=== PATIENT | male | born 1990 | race American Indian/Alaskan Native ===

== ENCOUNTER 2020-03-12 19:28 | Emergency (ER) | payer SELFPAY | END 2020-03-12 19:35 | disposition left against medical advice (07) | LOC: DL.ED 19:28 | DX: Z53.21 Procedure and treatment not carried out due to patient leaving prior to being seen by health care provider (principal) ==

== ENCOUNTER 2020-03-12 20:09 | Emergency (ER) | payer MEDICAID ==
[2020-03-12] MEDS ORDERED: LORazepam 2 MG/ML SDV IVPUSH ONE (20:32)
[2020-03-12] MEDS ORDERED: MVI, Adult with Vitamin K 10 ML, Folic Acid 1 MG, Thiamine 100 MG in Lactated Ringers 1... IV ONE ×4 (20:33)
--- NOTE | 2020-03-12 20:41 | EDM.PDOCBH ---
ED HPI GENERAL MEDICAL PROBLEM - General Chief Complaint: Drug or Alcohol Abuse Stated Complaint: DETOX Time Seen by Provider: 03/12/20 20:35 Source of Information: Reports: Patient History Limitations: Reports: No Limitations - History of Present Illness INITIAL COMMENTS - FREE TEXT/NARRATIVE: arrived with his mother, been drinking alot since April after getting lay-off. noticed eyes are yellow. - Related Data Allergies Allergy/AdvReac Type Severity Reaction Status Date / Time No Known Allergies Allergy Verified 03/12/20 20:27 Home Meds: Home Meds . [No Known Home Meds] 03/12/20 [History] ED ROS GENERAL - Review of Systems Review Of Systems: Comprehensive ROS is negative, except as noted in HPI. ED EXAM, BEHAVIORAL HEALTH - Physical Exam Exam: See Below Exam Limited By: No Limitations General Appearance: Alert, WD/WN, No Apparent Distress Eye Exam: Bilateral Eye: Other (icteric) Ears: Hearing Grossly Normal Throat/Mouth: Normal Voice, No Airway Compromise Head: Atraumatic Neck: Non-Tender, Full Range of Motion Respiratory/Chest: No Respiratory Distress Cardiovascular: Regular Rate, Rhythm GI/Abdominal: Tender, Other (palpable liver tender to deep palpation). No: Distended, Guarding, Rigid, Rebound (Male) Exam: Deferred Rectal (Males) Exam: Deferred Neurological: Alert, Normal Mood/Affect, Normal Cognition, Normal Gait, No Motor/Sensory Deficits, Oriented x 3 Psychiatric: Flat Affect Skin Exam: Jaundice COURSE, BEHAVIORAL HEALTH COMP - Course Vital Signs: Last Vital Signs Temp 36.8 C 03/12/20 22:03 Pulse 122 H 03/12/20 22:42 Resp 22 H 03/12/20 22:42 BP 149/86 H 03/12/20 22:42 Pulse Ox 95 03/12/20 22:42 Orders, Labs, Meds: Active Orders 24 hr Category Date Time Status AMMONIA VENOUS [CHEM] Stat Lab 03/12/20 23:04 Ordered CULTURE BLOOD [BC] Stat Lab 03/12/20 22:20 Received CULTURE URINE [RM] Stat Lab 03/12/20 20:42 Received Laboratory Tests 03/12/20 03/12/20 03/12/20 Range/Units 20:40 20:40 20:42 WBC 17.7 H (5.0-10.0) 10^3/uL RBC 3.33 L (4.6-6.2) 10^6/uL Hgb 11.5 L (14.0-18.0) g/dL Hct 31.7 L (40.0-54.0) % MCV 95.2 (80-100) fL MCH 34.5 H (27.0-34.0) pg MCHC 36.3 H (33.0-35.0) g/dL Plt Count 98 L (150-450) 10^3/uL Neut % (Auto) 84.2 H (42.2-75.2) % Lymph % (Auto) 5.7 L (20.5-50.1) % [place] % (Auto) 9.5 H (2-8) % Eos % (Auto) 0.3 L (1.0-3.0) % Baso % (Auto) 0.3 (0.0-1.0) % Sodium 127 L (136-145) mmol/L Potassium 2.6 L (3.5-5.1) mmol/L Chloride 87 L (98-107) mmol/L Carbon Dioxide 26 (21-32) mmol/L Anion Gap 16.6 H (7-13) mEq/L BUN 6 L (7-18) mg/dL Creatinine 0.97 (0.70-1.30) mg/dL Est Cr Clr Drug Dosing 107.73 mL/min Estimated GFR (MDRD) > 60 BUN/Creatinine Ratio 6.2 (No establ ref range) Glucose 179 H (74-99) mg/dL Lactic Acid (0.4-2.0) mmol/L Calcium 7.9 L (8.5-10.1) mg/dL Total Bilirubin 28.3 H (0.2-1.0) mg/dL AST 148 H (15-37) U/L ALT 27 (16-63) U/L Alkaline Phosphatase 176 H (46-116) U/L Total Protein 8.1 (6.4-8.2) g/dL Albumin 2.1 L (3.4-5.0) g/dL Globulin 6.0 Albumin/Globulin Ratio 0.35 Urine Color Brown (YELLOW) Urine Appearance Turbid (CLEAR) Urine pH 5.5 (5.0-9.0) Ur Specific [place] 1.020 (1.005-1.030) Urine Protein >=300 H (NEGATIVE) Urine Glucose (UA) 100 H (NEGATIVE) Urine Ketones 40 H (NEGATIVE) Urine Occult Blood Small H (NEGATIVE) Urine Nitrite Negative (NEGATIVE) Urine Bilirubin Large H (NEGATIVE) Urine Urobilinogen 4.0 H (0.2-1.0) mg/dL Ur Leukocyte Esterase Large H (NEGATIVE) Urine RBC 0-5 /HPF Urine WBC 40-50 H (0-5/HPF) /HPF Ur Epithelial Cells Many H (NOT SEEN) /HPF Urine Bacteria Many H (0-FEW/HPF) /HPF Urine Opiates Screen (NEGATIVE) Ur Oxycodone Screen (NEGATIVE) Urine Methadone Screen (NEGATIVE) Ur Barbiturates Screen (NEGATIVE) U Tricyclic Antidepress (NEGATIVE) Ur Phencyclidine Scrn (NEGATIVE) Ur Amphetamine Screen (NEGATIVE) U Methamphetamines Scrn (NEGATIVE) Urine MDMA Screen (NEGATIVE) U Benzodiazepines Scrn (NEGATIVE) Urine Cocaine Screen (NEGATIVE) U Marijuana (THC) Screen (NEGATIVE) Ethyl Alcohol < 3 (0) mg/dL SARS-CoV-2 RNA (NIC) (NEGATIVE) 03/12/20 03/12/20 03/12/20 Range/Units 20:42 20:44 22:20 WBC (5.0-10.0) 10^3/uL RBC (4.6-6.2) 10^6/uL Hgb (14.0-18.0) g/dL Hct (40.0-54.0) % MCV (80-100) fL MCH (27.0-34.0) pg MCHC (33.0-35.0) g/dL Plt Count (150-450) 10^3/uL Neut % (Auto) (42.2-75.2) % Lymph % (Auto) (20.5-50.1) % [place] % (Auto) (2-8) % Eos % (Auto) (1.0-3.0) % Baso % (Auto) (0.0-1.0) % Sodium (136-145) mmol/L Potassium (3.5-5.1) mmol/L Chloride (98-107) mmol/L Carbon Dioxide (21-32) mmol/L Anion Gap (7-13) mEq/L BUN (7-18) mg/dL Creatinine (0.70-1.30) mg/dL Est Cr Clr Drug Dosing mL/min Estimated GFR (MDRD) BUN/Creatinine Ratio (No establ ref range) Glucose (74-99) mg/dL Lactic Acid 3.6 H* (0.4-2.0) mmol/L Calcium (8.5-10.1) mg/dL Total Bilirubin (0.2-1.0) mg/dL AST (15-37) U/L ALT (16-63) U/L Alkaline Phosphatase (46-116) U/L Total Protein (6.4-8.2) g/dL Albumin (3.4-5.0) g/dL Globulin Albumin/Globulin Ratio Urine Color (YELLOW) Urine Appearance (CLEAR) Urine pH (5.0-9.0) Ur Specific [place] (1.005-1.030) Urine Protein (NEGATIVE) Urine Glucose (UA) (NEGATIVE) Urine Ketones (NEGATIVE) Urine Occult Blood (NEGATIVE) Urine Nitrite (NEGATIVE) Urine Bilirubin (NEGATIVE) Urine Urobilinogen (0.2-1.0) mg/dL Ur Leukocyte Esterase (NEGATIVE) Urine RBC /HPF Urine WBC (0-5/HPF) /HPF Ur Epithelial Cells (NOT SEEN) /HPF Urine Bacteria (0-FEW/HPF) /HPF Urine Opiates Screen Negative (NEGATIVE) Ur Oxycodone Screen Negative (NEGATIVE) Urine Methadone Screen Negative (NEGATIVE) Ur Barbiturates Screen Negative (NEGATIVE) U Tricyclic Antidepress Negative (NEGATIVE) Ur Phencyclidine Scrn Negative (NEGATIVE) Ur Amphetamine Screen Negative (NEGATIVE) U Methamphetamines Scrn Negative (NEGATIVE) Urine MDMA Screen Negative (NEGATIVE) U Benzodiazepines Scrn Negative (NEGATIVE) Urine Cocaine Screen Negative (NEGATIVE) U Marijuana (THC) Screen Negative (NEGATIVE) Ethyl Alcohol (0) mg/dL SARS-CoV-2 RNA (NIC) Negative (NEGATIVE) Medications Discontinued Medications Generic Name Dose Route Start Last Admin Trade Name Freq PRN Reason Stop Dose Admin Multivitamins/Minerals 10 ml/ 1,011.2 mls @ 999 mls/hr 03/12/20 20:33 03/12/20 20:49 Folic Acid 1 mg/ Thiamine HCl IV 03/12/20 21:33 999 mls/hr 100 mg/ Lactated Ringer's ONETIME ONE Administration Sodium Chloride 1,000 mls @ 999 mls/hr 03/12/20 22:01 03/12/20 22:10 Normal Saline IV 03/12/20 23:01 999 mls/hr .BOLUS ONE Administration Ceftriaxone Sodium 1,000 mg/ 50 mls @ 100 mls/hr 03/12/20 22:14 03/12/20 22:39 Sodium Chloride IV 03/12/20 22:43 100 mls/hr ONETIME ONE Administration Iopamidol 100 ml 03/12/20 21:58 03/12/20 22:10 Isovue-300 (61%) IVPUSH 03/12/20 21:59 100 ml ONETIME ONE Administration Lorazepam 1 mg 03/12/20 20:32 03/12/20 20:50 Ativan IVPUSH 03/12/20 20:33 1 mg ONETIME ONE Administration Potassium Chloride 40 meq 03/12/20 22:01 03/12/20 22:08 Klor-Con 10 PO 03/12/20 22:02 40 meq ONETIME ONE Administration Re-Assessment/Re-Exam: re-exam; pt starting to have visual hallucination of seeing kids running about playing. case discussed with Dr Tolbert @ who kindly accepted pt. Departure - Departure Time of Disposition: 23:27 Disposition: DC/Tfer to [facility] Condition: Fair Clinical Impression: Hyponatremia, Hypokalemia, Total bilirubin, elevated, Jaundice due to hepatitis Cirrhosis of liver Qualifiers: Hepatic cirrhosis type: alcoholic cirrhosis Ascites presence: with ascites Qualified Code(s): K70.31 - Alcoholic cirrhosis of liver with ascites Sepsis Qualifiers: Sepsis type: sepsis due to unspecified organism Sepsis acute organ dysfunction status: without acute organ dysfunction Qualified Code(s): A41.9 - Sepsis, unspecified organism - Discharge Information Forms: Interfacility Transfer [facility] Sepsis Event Note (ED) - Evaluation Sepsis Screening Result: No Definite Risk - Focused Exam Vital Signs: Vital Signs Temp Pulse Resp BP Pulse Ox 03/12/20 22:42 122 H 22 H 149/86 H 95 03/12/20 22:03 36.8 C 123 H 20 161/102 H 98 03/12/20 21:05 126 H 19 173/101 H 99 03/12/20 20:19 35.7 C L 136 H 17 189/114 H 99 - My Orders Last 24 Hours: My Active Orders 03/12/20 20:42 CULTURE URINE [RM] Stat 03/12/20 22:20 CULTURE BLOOD [BC] Stat 03/12/20 23:04 AMMONIA VENOUS [CHEM] Stat - Assessment/Plan Last 24 Hours: My Active Orders 03/12/20 20:42 CULTURE URINE [RM] Stat 03/12/20 22:20 CULTURE BLOOD [BC] Stat 03/12/20 23:04 AMMONIA VENOUS [CHEM] Stat
[2020-03-12 21:27] LABS: AMPHETAMINES,URINE NEGATIVE (NEGATIVE); BARBITURATES,URINE NEGATIVE (NEGATIVE); BENZODIAZEPINE,URINE NEGATIVE (NEGATIVE); MDMA (ECSTASY), URINE NEGATIVE (NEGATIVE); METHADONE,URINE NEGATIVE (NEGATIVE); METHAMPHETAMINES,URINE NEGATIVE (NEGATIVE); OPIATES,URINE NEGATIVE (NEGATIVE); OXYCODONE,URINE NEGATIVE (NEGATIVE); PHENCYCLIDINE,URINE NEGATIVE (NEGATIVE); TCA,URINE NEGATIVE (NEGATIVE)
[2020-03-12 21:30] LABS: ANION GAP 16.6 mEq/L (7-13); CHLORIDE,CL 87 mmol/L (98-107); SODIUM,NA 127 mmol/L (136-145)
[2020-03-12] MEDS ORDERED: Iopamidol 612 MG/ML 100 ML Bottle IVPUSH ONE (21:58)
[2020-03-12] MEDS ORDERED: Potassium Chloride 10 MEQ Tab.ER PO ONE (22:01)
[2020-03-12] MEDS ORDERED: Sodium Chloride 0.9% 1,000 ML IV ONE (22:01)
[2020-03-12] MEDS ORDERED: cefTRIAXone 1,000 MG in Sodium Chloride 0.9% 50 ML IV ONE (22:14)
--- NOTE | 2020-03-12 22:56 | CT ---
PROCEDURE INFORMATION: Exam: CT Abdomen And Pelvis With Contrast Exam date and time: 03/12/2020 10:26 PM Age: 30 years old Clinical indication: Other: Jaundiced, bilirubin 28.3, wbc 17.7; Additional info: Elevated bilirub TECHNIQUE: Imaging protocol: Computed tomography of the abdomen and pelvis with intravenous contrast. Radiation optimization: All CT scans at this facility use at least one of these dose optimization techniques: automated exposure control; mA and/or kV adjustment per patient size (includes targeted exams where dose is matched to clinical indication); or iterative reconstruction. Contrast material: [id number]; Contrast volume: 100 ml; Contrast route: INTRAVENOUS (IV); COMPARISON: No relevant prior studies available. FINDINGS: 30-year-old male presenting with jaundice. A CT of the abdomen and pelvis with intravenous contrast was performed for further evaluation. The liver is significantly enlarged measuring 26 cm and diffuse hepatic steatosis is present. There is a nodular liver contour and caudate lobe hypertrophy, compatible with cirrhosis. No focal liver lesions are appreciated. The gallbladder is contracted and difficult to evaluate. No biliary ductal dilation. The spleen is mildly enlarged measuring 12 cm. The pancreas, adrenal glands, kidneys, ureters, urinary bladder, and reproductive organs are unremarkable. No bowel obstruction or significant bowel wall thickening. Mild constipation is present. The appendix is normal. Mild diffuse abdominopelvic ascites are seen. No fluid collections or pneumoperitoneum. The portal venous system is patent. There is recanalization of the umbilical vein. 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 There is a left splenorenal shunt. There are multiple varices identified within an umbilical fat containing hernia. No acute vascular pathology is otherwise seen. No concerning abdominopelvic adenopathy. Aside from the above described umbilical hernia, the body wall soft tissues are unremarkable. Lung bases are clear. No acute skeletal abnormality or aggressive osseous lesion. IMPRESSION: Severe hepatomegaly and hepatic steatosis with associated cirrhosis and mildly decompensated portal hypertension. If there is no prior history of alcohol consumption, non alcoholic fatty liver disease/steatohepatitis should be entertained.
== END 2020-03-12 23:56 ==
LOC: DL.ED 20:09
DX: A41.9 Sepsis, unspecified organism (principal); K70.31 Alcoholic cirrhosis of liver with ascites; E87.1 Hypo-osmolality and hyponatremia; E87.6 Hypokalemia; E80.6 Other disorders of bilirubin metabolism; K75.9 Inflammatory liver disease, unspecified; Z20.822 Contact with and (suspected) exposure to COVID-19
CPT/HCPCS: 36415; 74177; 80053; 80305; 80307; 81001; 82140; 83605; 85025; 87040; 87086; 87635; 96365; 96367; 96375; 99285; A9270; J0696; J2060; J3411; J7030; J7120; Q9967; 99284; J3490; U0002

== ENCOUNTER 2020-05-05 17:58 | Observation (INO) | payer MEDICAID ==
[2020-05-05 19:46] LABS: CHLORIDE,CL 91 mmol/L (98-107); SODIUM,NA 125 mmol/L (136-145)
[2020-05-05] MEDS ORDERED: Sodium Chloride 0.9% 1,000 ML IV ONE (19:58)
[2020-05-05 20:21] LABS: BASE EXCESS ARTERIAL -5 mmol/L ((-2)-(+3)); BICARBONATE,ARTERIAL 18.9 mmol/L (22-26); O2 DELIVERY DEVICE ROOM AIR; O2 SATURATION ARTERIAL 98 % (95-100); PCO2 ARTERIAL 32 mmHg (35-45); PO2 ARTERIAL 91 mmHg (70-100)
--- NOTE | 2020-05-05 20:41 | EDM.PDOC ---
ED HPI GENERAL MEDICAL PROBLEM - General Chief Complaint: Diabetic Complaint Stated Complaint: BLOOD SUGAR IS HIGH Time Seen by Provider: 05/05/20 20:30 Source of Information: Reports: Patient History Limitations: Reports: No Limitations - History of Present Illness INITIAL COMMENTS - FREE TEXT/NARRATIVE: This 30 yo male patient reports to the ED due to elevated blood sugar levels and increased thirst. The patient reports he was seen in the [facility] within the past month and was started on Spironolactone (for swelling) as well as oral diabetic medications. The patient reports he does not normally check his blood sugar levels, but did today due to his other symptoms. The patient reports he was in [facility] previously due to elevated liver functions (was told that he either has cirrhosis or alcoholic liver) and placed on Prednisone. The patient reports he has continued to take the steroid. The patient reports he is starting to be taken off the steroids, but does not know his current dose (reports he takes 3 little pills). Onset: Gradual Duration: Day(s): (2), Constant, Getting Worse Location: Reports: Generalized Quality: Reports: Other Severity: Moderate Improves with: Reports: None Worsens with: Reports: None Context: Reports: Other Associated Symptoms: Reports: No Other Symptoms - Related Data Allergies Allergy/AdvReac Type Severity Reaction Status Date / Time No Known Allergies Allergy Verified 03/12/20 20:27 Home Meds: Home Meds . [No Known Home Meds] 03/12/20 [History] Past Medical History Cardiovascular History: Reports: Hypertension Neurological History: Reports: Concussion Psychiatric History: Reports: Addiction Endocrine/Metabolic History: Reports: Diabetes, Type II Other Endocrine/Metabolic History: States he was tested once and they stated he was pre diabetic. Never followed up. - Past Surgical History Male Surgical History: Reports: Circumcision Social & Family History - Family History Family Medical History: No Pertinent Family History - Tobacco Use Tobacco Use Status *Q: Never Tobacco User Second Hand Smoke Exposure: No - Caffeine Use Caffeine Use: Reports: Soda Other Caffeine Use: 1 soda /day - Recreational Drug Use Recreational Drug Use: No ED ROS GENERAL - Review of Systems Review Of Systems: Comprehensive ROS is negative, except as noted in HPI. ED EXAM GENERAL NO PERIP PULSE - Physical Exam Exam: See Below Exam Limited By: No Limitations General Appearance: Alert, WD/WN, Moderate Distress Eye Exam: Bilateral Eye: EOMI, Normal Inspection, PERRL Ears: Normal External Exam, Normal Canal, Hearing Grossly Normal, Normal TMs Nose: Normal Inspection, Normal Mucosa, No Blood Throat/Mouth: Normal Inspection, Normal Lips, Normal Teeth, Normal Gums, Normal Oropharynx, Normal Voice, No Airway Compromise Head: Atraumatic, Normocephalic Neck: Normal Inspection, Supple, Non-Tender, Full Range of Motion Respiratory/Chest: No Respiratory Distress, Lungs Clear, Normal Breath Sounds, No Accessory Muscle Use, Chest Non-Tender Cardiovascular: Normal Peripheral Pulses, Regular Rate, Rhythm, No Edema, No Gallop, No JVD, No Murmur, No Rub GI/Abdominal: Normal Bowel Sounds, Soft, Non-Tender, No Organomegaly, No Distention, No Abnormal Bruit, No Mass (Male) Exam: Deferred Rectal (Males) Exam: Deferred Back Exam: Normal Inspection, Full Range of Motion, NT Extremities: Normal Inspection, Normal Range of Motion, Non-Tender, Normal Capillary Refill, No Pedal Edema Neurological: Alert, Oriented, CN II-XII Intact, Normal Cognition, Normal Gait, Normal Reflexes, No Motor/Sensory Deficits Psychiatric: Normal Affect, Normal Mood Skin Exam: Warm, Dry, Intact, Normal Color, No Rash Lymphatic: No Adenopathy Course - Vital Signs Last Recorded V/S: Last Vital Signs Temp 36.4 C 05/05/20 19:01 Pulse 80 05/05/20 19:01 Resp 18 05/05/20 19:01 BP 151/80 H 05/05/20 19:01 Pulse Ox 100 05/05/20 19:01 - Orders/Labs/Meds Orders: Active Orders 24 hr Category Date Time Status Admission Diagnosis [ADT] Urgent ADT 05/05/20 21:10 Ordered Admission Status [Patient Status] [ADT] Routine ADT 05/05/20 21:10 Ordered DRUG SCREEN URINE BIORAD [URCHEM] Stat Lab 05/05/20 20:50 Ordered UA RFX NIKITA AND CULT IF INDIC [URIN] Urgent Lab 05/05/20 20:50 Ordered Labs: Laboratory Tests 05/05/20 05/05/20 05/05/20 Range/Units 19:25 19:25 20:10 WBC 13.6 H (5.0-10.0) 10^3/uL RBC 3.37 L (4.6-6.2) 10^6/uL Hgb 11.1 L (14.0-18.0) g/dL Hct 32.3 L (40.0-54.0) % MCV 95.8 (80-100) fL MCH 32.9 (27.0-34.0) pg MCHC 34.4 (33.0-35.0) g/dL Plt Count 78 L (150-450) 10^3/uL Neut % (Auto) 93.8 H (42.2-75.2) % Lymph % (Auto) 3.9 L (20.5-50.1) % [place] % (Auto) 2.1 (2-8) % Eos % (Auto) 0.1 L (1.0-3.0) % Baso % (Auto) 0.1 (0.0-1.0) % Add Manual Diff Yes Neutrophils % (Manual) 83 H (42-75) % Band Neutrophils % 9 % Lymphocytes % (Manual) 3 L (20-50) % Atypical Lymphs % 0 % Monocytes % (Manual) 3 (2-8) % Eosinophils % (Manual) 2 (1-3) % Poikilocytosis 1+ slight Anisocytosis 1+ slight ABG pH (7.35-7.45) ABG pCO2 (35-45) mmHg ABG pO2 (70-100) mmHg ABG HCO3 (22-26) mmol/L ABG O2 Saturation (95-100) % ABG Base Excess ((-2)-(+3)) mmol/L Ariel Test O2 Delivery Device Sodium 125 L (136-145) mmol/L Potassium 5.0 D (3.5-5.1) mmol/L Chloride 91 L (98-107) mmol/L Carbon Dioxide 22 (21-32) mmol/L Anion Gap 17.0 H (7-13) mEq/L BUN 28 H (7-18) mg/dL Creatinine 1.79 H (0.70-1.30) mg/dL Est Cr Clr Drug Dosing 60.34 mL/min Estimated GFR (MDRD) 45 BUN/Creatinine Ratio 15.6 (No establ ref range) Glucose 904 H* (74-99) mg/dL Calcium 9.4 D (8.5-10.1) mg/dL Total Bilirubin 4.9 H (0.2-1.0) mg/dL AST 35 (15-37) U/L ALT 82 H (16-63) U/L Alkaline Phosphatase 502 H (46-116) U/L Total Protein 7.9 (6.4-8.2) g/dL Albumin 3.7 (3.4-5.0) g/dL Globulin 4.2 Albumin/Globulin Ratio 0.88 Ketones Negative Influenza Type A RNA Negative (NEGATIVE) Influenza Type B RNA Negative (NEGATIVE) SARS-CoV-2 RNA (INC) Negative (NEGATIVE) 05/05/20 Range/Units 20:45 WBC (5.0-10.0) 10^3/uL RBC (4.6-6.2) 10^6/uL Hgb (14.0-18.0) g/dL Hct (40.0-54.0) % MCV (80-100) fL MCH (27.0-34.0) pg MCHC (33.0-35.0) g/dL Plt Count (150-450) 10^3/uL Neut % (Auto) (42.2-75.2) % Lymph % (Auto) (20.5-50.1) % [place] % (Auto) (2-8) % Eos % (Auto) (1.0-3.0) % Baso % (Auto) (0.0-1.0) % Add Manual Diff Neutrophils % (Manual) (42-75) % Band Neutrophils % % Lymphocytes % (Manual) (20-50) % Atypical Lymphs % % Monocytes % (Manual) (2-8) % Eosinophils % (Manual) (1-3) % Poikilocytosis Anisocytosis ABG pH 7.40 (7.35-7.45) ABG pCO2 32 L (35-45) mmHg ABG pO2 91 (70-100) mmHg ABG HCO3 18.9 L (22-26) mmol/L ABG O2 Saturation 98 (95-100) % ABG Base Excess -5 L ((-2)-(+3)) mmol/L Ariel Test pos O2 Delivery Device Room air Sodium (136-145) mmol/L Potassium (3.5-5.1) mmol/L Chloride (98-107) mmol/L Carbon Dioxide (21-32) mmol/L Anion Gap (7-13) mEq/L BUN (7-18) mg/dL Creatinine (0.70-1.30) mg/dL Est Cr Clr Drug Dosing mL/min Estimated GFR (MDRD) BUN/Creatinine Ratio (No establ ref range) Glucose (74-99) mg/dL Calcium (8.5-10.1) mg/dL Total Bilirubin (0.2-1.0) mg/dL AST (15-37) U/L ALT (16-63) U/L Alkaline Phosphatase (46-116) U/L Total Protein (6.4-8.2) g/dL Albumin (3.4-5.0) g/dL Globulin Albumin/Globulin Ratio Ketones Influenza Type A RNA (NEGATIVE) Influenza Type B RNA (NEGATIVE) SARS-CoV-2 RNA (NIC) (NEGATIVE) Meds: Medications Discontinued Medications Generic Name Dose Route Start Last Admin Trade Name Freq PRN Reason Stop Dose Admin Sodium Chloride 1,000 mls @ 999 mls/hr 05/05/20 19:58 05/05/20 20:07 Normal Saline IV 05/05/20 20:58 999 mls/hr .BOLUS ONE Administration Departure - Departure Time of Disposition: 21:12 Disposition: Refer to Observation Condition: Fair Clinical Impression: Hyperglycemia, Hyponatremia Acute renal failure (ARF) Qualifiers: Acute renal failure type: unspecified Qualified Code(s): N17.9 - Acute kidney failure, unspecified - Discharge Information *PRESCRIPTION DRUG MONITORING PROGRAM REVIEWED*: Not Applicable *COPY OF PRESCRIPTION DRUG MONITORING REPORT IN PATIENT GERARDO: Not Applicable Care Plan Goals: Discussed the patient's history, examination and lab results with Dr Armstrong. Dr. Armstrong accepted the patient for continued evaluation and treatment as an observation patient at [facility] in [place]. Sepsis Event Note (ED) - Evaluation Sepsis Screening Result: No Definite Risk - Focused Exam Vital Signs: Vital Signs Temp Pulse Resp BP Pulse Ox 05/05/20 19:01 36.4 C 80 18 151/80 H 100 - My Orders Last 24 Hours: My Active Orders 05/05/20 20:50 DRUG SCREEN URINE BIORAD [URCHEM] Stat UA RFX NIKITA AND CULT IF INDIC [URIN] Urgent 05/05/20 21:10 Admission Diagnosis [ADT] Urgent Admission Status [Patient Status] [ADT] Routine - Assessment/Plan Last 24 Hours: My Active Orders 05/05/20 20:50 DRUG SCREEN URINE BIORAD [URCHEM] Stat UA RFX NIKITA AND CULT IF INDIC [URIN] Urgent 05/05/20 21:10 Admission Diagnosis [ADT] Urgent Admission Status [Patient Status] [ADT] Routine
[2020-05-05 20:50] LABS: ALLEN TEST pos
[2020-05-05 20:54] LABS: CORONAVIRUS COVID-19 NAA NEGATIVE (NEGATIVE)
[2020-05-05] MEDS ORDERED: Glucagon,Human Recombinant 1 MG Vial IM PRN (22:05)
[2020-05-05] MEDS ORDERED: 50% Dextrose in Water 50 ML Syringe IV PRN (22:05)
[2020-05-05] MEDS ORDERED: Sodium Chloride 0.9% 1,000 ML IV SCH (22:15)
--- NOTE | 2020-05-05 22:20 | PCM.HP ---
H&P History of Present Illness - General Date of Service: 05/05/20 Admit Problem/Dx: Admission Diagnosis/Problem Admission Diagnosis/Problem Hyperglycemia - History of Present Illness Initial Comments - Free Text/Narative: 30M w/ pmh alcoholism, HT, DM2, alcoholic hepatitis and likely alcoholic liver cirrhosis p/w weakness. Pt was alcohol dependent up until 2 mo ago and states has not drank since then. He was first admitted to [facility] license of [facility] in February after he developed new jaundice and abnormal labs/electrolytes. He spent a week in the hospital. Appx 1 week after discharge he was seen in follow up and his labs were again concerning and he was re-admitted to On license of [facility]. This time he underwent an EGD and colonoscopy which only found hemorrhoids. He also had a paracentesis w/ 1L drained. He was told he has alcoholic hepatitis but some time has to pass until he is declared to have cirrhosis. At that time he was started on prednisone. For the last months he has been feeling well. Ascites has not re-accumulated and his massive LE edema has completely resolved. He comes in today because for just the last several days he's been feeling weak, tired, extremely thirsty and has had polyuria. In the ED his FSG is noted 904 w/ associated pseudohyponatremia and KELVIN. - Related Data Allergies/Adverse Reactions: Allergies Allergy/AdvReac Type Severity Reaction Status Date / Time No Known Allergies Allergy Verified 03/12/20 20:27 Home Medications: Home Meds Folic Acid 1 mg PO DAILY 05/05/20 [History] Lactulose [Chronulac] 10 gm PO TID 05/05/20 [History] Metoprolol Tartrate 25 mg PO BID 05/05/20 [History] Spironolactone 50 mg PO BID 05/05/20 [History] Thiamine [Vitamin B-1] 100 mg PO DAILY 05/05/20 [History] amLODIPine [Norvasc] 5 mg PO DAILY 05/05/20 [History] predniSONE [Prednisone] 20 mg PO DAILY 05/05/20 [History] Past Medical History Cardiovascular History: Reports: Hypertension Neurological History: Reports: Concussion Psychiatric History: Reports: Addiction Endocrine/Metabolic History: Reports: Diabetes, Type II Other Endocrine/Metabolic History: States he was tested once and they stated he was pre diabetic. Never followed up. - Past Surgical History Male Surgical History: Reports: Circumcision Social & Family History - Family History Family Medical History: No Pertinent Family History - Tobacco Use Tobacco Use Status *Q: Never Tobacco User Second Hand Smoke Exposure: No - Caffeine Use Caffeine Use: Reports: Soda Other Caffeine Use: 1 soda /day - Recreational Drug Use Recreational Drug Use: No H&P Review of Systems - Review of Systems: Review Of Systems: See Below General: Reports: Malaise, Weakness. Denies: Fever, Chills, Diaphoresis HEENT: Denies: Headaches Pulmonary: Denies: Shortness of Breath, Wheezing, Cough Cardiovascular: Denies: Chest Pain, Orthopnea, Edema Gastrointestinal: Denies: Abdominal Pain, Diarrhea, Nausea Genitourinary: Reports: Frequency. Denies: Dysuria Skin: Reports: Jaundice Psychiatric: Denies: Hallucinations (Visual) Neurological: Denies: Confusion Hematologic/Lymphatic: Denies: Easy Bleeding Exam - Exam Exam: See Below - Vital Signs Vital Signs: Last Vital Signs Temp 97.5 F 05/05/20 19:01 Pulse 80 05/05/20 19:01 Resp 18 05/05/20 19:01 BP 151/80 H 05/05/20 19:01 Pulse Ox 100 05/05/20 19:01 Weight: 180 lb 8 oz - Exam Quality Assessment: No: Supplemental Oxygen General: Alert, Oriented, Cooperative HEENT: Scleral Icterus Neck: Supple Lungs: Clear to Auscultation, Normal Respiratory Effort Cardiovascular: Regular Rate, Regular Rhythm GI/Abdominal Exam: Normal Bowel Sounds, Soft, Non-Tender, No Distention Back Exam: Normal Inspection Extremities: No Pedal Edema Skin: Warm, Dry, Intact Neurological: Normal Speech Neuro Extensive - Mental Status: Alert, Oriented x3, Normal Mood/Affect Neuro Extensive - Motor, Sensory, Reflexes: No: Tremor Psychiatric: Alert, Normal Affect, Normal Mood - Patient Data Lab Results Last 24 hrs: Laboratory Results - last 24 hr 05/05/20 05/05/20 05/05/20 Range/Units 19:25 19:25 20:10 WBC 13.6 H (5.0-10.0) 10^3/uL RBC 3.37 L (4.6-6.2) 10^6/uL Hgb 11.1 L (14.0-18.0) g/dL Hct 32.3 L (40.0-54.0) % MCV 95.8 (80-100) fL MCH 32.9 (27.0-34.0) pg MCHC 34.4 (33.0-35.0) g/dL Plt Count 78 L (150-450) 10^3/uL Neut % (Auto) 93.8 H (42.2-75.2) % Lymph % (Auto) 3.9 L (20.5-50.1) % Pickett % (Auto) 2.1 (2-8) % Eos % (Auto) 0.1 L (1.0-3.0) % Baso % (Auto) 0.1 (0.0-1.0) % Add Manual Diff Yes Neutrophils % (Manual) 83 H (42-75) % Band Neutrophils % 9 % Lymphocytes % (Manual) 3 L (20-50) % Atypical Lymphs % 0 % Monocytes % (Manual) 3 (2-8) % Eosinophils % (Manual) 2 (1-3) % Poikilocytosis 1+ slight Anisocytosis 1+ slight ABG pH (7.35-7.45) ABG pCO2 (35-45) mmHg ABG pO2 (70-100) mmHg ABG HCO3 (22-26) mmol/L ABG O2 Saturation (95-100) % ABG Base Excess ((-2)-(+3)) mmol/L Ariel Test O2 Delivery Device Sodium 125 L (136-145) mmol/L Potassium 5.0 D (3.5-5.1) mmol/L Chloride 91 L (98-107) mmol/L Carbon Dioxide 22 (21-32) mmol/L Anion Gap 17.0 H (7-13) mEq/L BUN 28 H (7-18) mg/dL Creatinine 1.79 H (0.70-1.30) mg/dL Est Cr Clr Drug Dosing 60.34 mL/min Estimated GFR (MDRD) 45 BUN/Creatinine Ratio 15.6 (No establ ref range) Glucose 904 H* (74-99) mg/dL POC Glucose (70-105) mg/dl Calcium 9.4 D (8.5-10.1) mg/dL Total Bilirubin 4.9 H (0.2-1.0) mg/dL AST 35 (15-37) U/L ALT 82 H (16-63) U/L Alkaline Phosphatase 502 H (46-116) U/L Total Protein 7.9 (6.4-8.2) g/dL Albumin 3.7 (3.4-5.0) g/dL Globulin 4.2 Albumin/Globulin Ratio 0.88 Urine Color (YELLOW) Urine Appearance (CLEAR) Urine pH (5.0-9.0) Ur Specific [place] (1.005-1.030) Urine Protein (NEGATIVE) Urine Glucose (UA) (NEGATIVE) Urine Ketones (NEGATIVE) Urine Occult Blood (NEGATIVE) Urine Nitrite (NEGATIVE) Urine Bilirubin (NEGATIVE) Urine Urobilinogen (0.2-1.0) mg/dL Ur Leukocyte Esterase (NEGATIVE) Urine Opiates Screen (NEGATIVE) Ur Oxycodone Screen (NEGATIVE) Urine Methadone Screen (NEGATIVE) Ur Barbiturates Screen (NEGATIVE) U Tricyclic Antidepress (NEGATIVE) Ur Phencyclidine Scrn (NEGATIVE) Ur Amphetamine Screen (NEGATIVE) U Methamphetamines Scrn (NEGATIVE) Urine MDMA Screen (NEGATIVE) U Benzodiazepines Scrn (NEGATIVE) Urine Cocaine Screen (NEGATIVE) U Marijuana (THC) Screen (NEGATIVE) Ketones Negative Influenza Type A RNA Negative (NEGATIVE) Influenza Type B RNA Negative (NEGATIVE) SARS-CoV-2 RNA (NIC) Negative (NEGATIVE) 05/05/20 05/05/20 05/05/20 Range/Units 20:25 20:25 20:45 WBC (5.0-10.0) 10^3/uL RBC (4.6-6.2) 10^6/uL Hgb (14.0-18.0) g/dL Hct (40.0-54.0) % MCV (80-100) fL MCH (27.0-34.0) pg MCHC (33.0-35.0) g/dL Plt Count (150-450) 10^3/uL Neut % (Auto) (42.2-75.2) % Lymph % (Auto) (20.5-50.1) % Pickett % (Auto) (2-8) % Eos % (Auto) (1.0-3.0) % Baso % (Auto) (0.0-1.0) % Add Manual Diff Neutrophils % (Manual) (42-75) % Band Neutrophils % % Lymphocytes % (Manual) (20-50) % Atypical Lymphs % % Monocytes % (Manual) (2-8) % Eosinophils % (Manual) (1-3) % Poikilocytosis Anisocytosis ABG pH 7.40 (7.35-7.45) ABG pCO2 32 L (35-45) mmHg ABG pO2 91 (70-100) mmHg ABG HCO3 18.9 L (22-26) mmol/L ABG O2 Saturation 98 (95-100) % ABG Base Excess -5 L ((-2)-(+3)) mmol/L Ariel Test pos O2 Delivery Device Room air Sodium (136-145) mmol/L Potassium (3.5-5.1) mmol/L Chloride (98-107) mmol/L Carbon Dioxide (21-32) mmol/L Anion Gap (7-13) mEq/L BUN (7-18) mg/dL Creatinine (0.70-1.30) mg/dL Est Cr Clr Drug Dosing mL/min Estimated GFR (MDRD) BUN/Creatinine Ratio (No establ ref range) Glucose (74-99) mg/dL POC Glucose (70-105) mg/dl Calcium (8.5-10.1) mg/dL Total Bilirubin (0.2-1.0) mg/dL AST (15-37) U/L ALT (16-63) U/L Alkaline Phosphatase (46-116) U/L Total Protein (6.4-8.2) g/dL Albumin (3.4-5.0) g/dL Globulin Albumin/Globulin Ratio Urine Color Yellow (YELLOW) Urine Appearance Clear (CLEAR) Urine pH 6.0 (5.0-9.0) Ur Specific [place] 1.010 (1.005-1.030) Urine Protein Negative (NEGATIVE) Urine Glucose (UA) >=1000 H (NEGATIVE) Urine Ketones Negative (NEGATIVE) Urine Occult Blood Negative (NEGATIVE) Urine Nitrite Negative (NEGATIVE) Urine Bilirubin Negative (NEGATIVE) Urine Urobilinogen 0.2 (0.2-1.0) mg/dL Ur Leukocyte Esterase Negative (NEGATIVE) Urine Opiates Screen Negative (NEGATIVE) Ur Oxycodone Screen Negative (NEGATIVE) Urine Methadone Screen Negative (NEGATIVE) Ur Barbiturates Screen Negative (NEGATIVE) U Tricyclic Antidepress Negative (NEGATIVE) Ur Phencyclidine Scrn Negative (NEGATIVE) Ur Amphetamine Screen Negative (NEGATIVE) U Methamphetamines Scrn Negative (NEGATIVE) Urine MDMA Screen Negative (NEGATIVE) U Benzodiazepines Scrn Negative (NEGATIVE) Urine Cocaine Screen Negative (NEGATIVE) U Marijuana (THC) Screen Negative (NEGATIVE) Ketones Influenza Type A RNA (NEGATIVE) Influenza Type B RNA (NEGATIVE) SARS-CoV-2 RNA (NIC) (NEGATIVE) 05/05/20 Range/Units 21:56 WBC (5.0-10.0) 10^3/uL RBC (4.6-6.2) 10^6/uL Hgb (14.0-18.0) g/dL Hct (40.0-54.0) % MCV (80-100) fL MCH (27.0-34.0) pg MCHC (33.0-35.0) g/dL Plt Count (150-450) 10^3/uL Neut % (Auto) (42.2-75.2) % Lymph % (Auto) (20.5-50.1) % Pickett % (Auto) (2-8) % Eos % (Auto) (1.0-3.0) % Baso % (Auto) (0.0-1.0) % Add Manual Diff Neutrophils % (Manual) (42-75) % Band Neutrophils % % Lymphocytes % (Manual) (20-50) % Atypical Lymphs % % Monocytes % (Manual) (2-8) % Eosinophils % (Manual) (1-3) % Poikilocytosis Anisocytosis ABG pH (7.35-7.45) ABG pCO2 (35-45) mmHg ABG pO2 (70-100) mmHg ABG HCO3 (22-26) mmol/L ABG O2 Saturation (95-100) % ABG Base Excess ((-2)-(+3)) mmol/L Ariel Test O2 Delivery Device Sodium (136-145) mmol/L Potassium (3.5-5.1) mmol/L Chloride (98-107) mmol/L Carbon Dioxide (21-32) mmol/L Anion Gap (7-13) mEq/L BUN (7-18) mg/dL Creatinine (0.70-1.30) mg/dL Est Cr Clr Drug Dosing mL/min Estimated GFR (MDRD) BUN/Creatinine Ratio (No establ ref range) Glucose (74-99) mg/dL POC Glucose > 500 H* (70-105) mg/dl Calcium (8.5-10.1) mg/dL Total Bilirubin (0.2-1.0) mg/dL AST (15-37) U/L ALT (16-63) U/L Alkaline Phosphatase (46-116) U/L Total Protein (6.4-8.2) g/dL Albumin (3.4-5.0) g/dL Globulin Albumin/Globulin Ratio Urine Color (YELLOW) Urine Appearance (CLEAR) Urine pH (5.0-9.0) Ur Specific [place] (1.005-1.030) Urine Protein (NEGATIVE) Urine Glucose (UA) (NEGATIVE) Urine Ketones (NEGATIVE) Urine Occult Blood (NEGATIVE) Urine Nitrite (NEGATIVE) Urine Bilirubin (NEGATIVE) Urine Urobilinogen (0.2-1.0) mg/dL Ur Leukocyte Esterase (NEGATIVE) Urine Opiates Screen (NEGATIVE) Ur Oxycodone Screen (NEGATIVE) Urine Methadone Screen (NEGATIVE) Ur Barbiturates Screen (NEGATIVE) U Tricyclic Antidepress (NEGATIVE) Ur Phencyclidine Scrn (NEGATIVE) Ur Amphetamine Screen (NEGATIVE) U Methamphetamines Scrn (NEGATIVE) Urine MDMA Screen (NEGATIVE) U Benzodiazepines Scrn (NEGATIVE) Urine Cocaine Screen (NEGATIVE) U Marijuana (THC) Screen (NEGATIVE) Ketones Influenza Type A RNA (NEGATIVE) Influenza Type B RNA (NEGATIVE) SARS-CoV-2 RNA (NIC) (NEGATIVE) Result Diagrams: 05/05/20 19:25 05/05/20 19:25 Problem List Initiated/Reviewed/Updated: No Orders Last 24hrs: Active Orders 24 hr Category Date Time Status Admission Diagnosis [ADT] Urgent ADT 05/05/20 21:10 Ordered Admission Status [Patient Status] [ADT] Routine ADT 05/05/20 21:10 Active Patient Status [ADT] Routine ADT 05/05/20 22:05 Ordered Blood Glucose Check, Bedside [RC] Q4H Care 05/05/20 22:05 Ordered Oxygen Therapy [RC] PRN Care 05/05/20 22:05 Ordered Up ad Sudha [RC] ASDIRECTED Care 05/05/20 22:05 Ordered VTE/DVT Education [RC] PER UNIT ROUTINE Care 05/05/20 22:05 Ordered Vital Signs [RC] Q4H Care 05/05/20 22:05 Ordered Consistent Carbohydrate Diet [DIET] Diet 05/05/20 Breakfast Ordered COMPREHENSIVE METABOLIC PN,CMP [CHEM] AM Lab 05/06/20 05:11 Ordered INR,PT,PROTHROMBIN TIME [COAG] AM Lab 05/06/20 05:11 Ordered Dextrose 50% in Water Med 05/05/20 22:05 Ordered 50 ml IV ASDIRECTED PRN Folic Acid Med 05/06/20 09:00 Ordered 1 mg PO DAILY Glucagon,Human Recombinant [GlucaGen] Med 05/05/20 22:05 Ordered 1 mg IM ASDIRECTED PRN Insulin Glarg,Human.Rec.Analog [LantUS] Med 05/06/20 22:09 Ordered 20 unit SUBCUT BEDTIME Insulin Lispro [HumaLOG] Med 05/05/20 22:11 Ordered See Protocol SUBCUT Q4H Metoprolol Tartrate [Lopressor] Med 05/06/20 09:00 Ordered 25 mg PO BID Sodium Chloride 0.9% [Normal Saline] 1,000 ml Med 05/05/20 22:15 Ordered IV .BOLUS Sodium Chloride 0.9% [Normal Saline] 1,000 ml Med 05/05/20 22:15 Ordered IV ASDIRECTED Spironolactone [Spironolactone] Med 05/06/20 09:00 Ordered 50 mg PO BID Thiamine [Vitamin B-1] Med 05/06/20 09:00 Ordered 100 mg PO DAILY amLODIPine [Norvasc] Med 05/06/20 09:00 Ordered 5 mg PO DAILY predniSONE Med 05/06/20 09:00 Ordered 20 mg PO DAILY Resuscitation Status Routine Resus Stat 05/05/20 22:05 Ordered Medication Orders Dextrose/Water (50% Dextrose In Water 50 Ml Syringe) 50 ml IV ASDIRECTED PRN PRN Reason: Hypoglycemia Glucagon (Glucagon,Human Recombinant 1 Mg Vial) 1 mg IM ASDIRECTED PRN PRN Reason: Hypoglycemia Sodium Chloride (Normal Saline) 1,000 mls @ 999 mls/hr IV .BOLUS FARHAT Sodium Chloride (Normal Saline) 1,000 mls @ 150 mls/hr IV ASDIRECTED FARHAT Insulin Glargine (Insulin Glarg,Human.Rec.Analog 100 Unit/Ml) 20 unit SUBCUT BEDTIME FARHAT Insulin Human Lispro (Insulin Lispro 100 Units/Ml 3 Ml Vial) 0 unit SUBCUT Q4H FARHAT; Protocol Assessment/Plan Comment:: #hyperglycemia - in setting of prednisone use - start lantus weight based dose and q4h correction scale - fluid resuscitate #pseudohyponatremia - due to elevated glucose - corrected Na is normal #KELVIN - 2x NS bolus then 150/hr #alcoholic hepatitis - he has started his steroid taper - will continue this w/ 20 mg prednisone tomorrow - check coags to calculate DF and MELD #hx alcohol dependence - states he is sober 2 mo now and awaiting entry into an outpatient program PPX - [facility] Full code
[2020-05-05] MEDS ORDERED: Insulin Glarg,Human.Rec.Analog 100 Unit/ML SUBCUT SCH (22:22)
[2020-05-05] MEDS: Insulin Lispro 100 Units/ML 3 ML Vial SUBCUT SCH (22:43)
[2020-05-05] MEDS: Sodium Chloride 0.9% 1,000 ML IV SCH (23:42)
[2020-05-06] MEDS: Insulin Lispro 100 Units/ML 3 ML Vial SUBCUT SCH ×3 (02:23→10:11)
[2020-05-06] MEDS: Sodium Chloride 0.9% 1,000 ML IV SCH (06:06)
[2020-05-06] MEDS: Heparin Sodium 5,000 Units/ML Vial SUBCUT SCH ×2 (06:15→06:18)
[2020-05-06 06:43] LABS: ANION GAP 18.5 mEq/L (7-13); CHLORIDE,CL 105 mmol/L (98-107); SODIUM,NA 139 mmol/L (136-145)
[2020-05-06] MEDS ORDERED: Metoprolol Tartrate 25 MG Tab PO SCH (09:00)
[2020-05-06] MEDS ORDERED: predniSONE 20 MG Tab PO SCH (09:00)
[2020-05-06] MEDS ORDERED: Folic Acid 1 MG Tab PO SCH (09:00)
[2020-05-06] MEDS ORDERED: Thiamine 100 MG Tab PO SCH (09:00)
[2020-05-06] MEDS ORDERED: Spironolactone 25 MG Tab PO SCH (09:00)
[2020-05-06] MEDS ORDERED: amLODIPine 5 MG Tab PO SCH (09:00)
--- NOTE | 2020-05-06 17:57 | PCM.DCSUM1 ---
Discharge Summary - Hospital Course Free Text/Narrative:: 30M w/ pmh alcoholism, HT, DM2, alcoholic hepatitis and likely alcoholic liver cirrhosis p/w weakness. Pt was alcohol dependent up until 2 mo ago and states has not drank since then. He was first admitted to [facility] in February after he developed new jaundice and abnormal labs/electrolytes. He spent a week in the hospital. Appx 1 week after discharge he was seen in follow up and his labs were again concerning and he was re-admitted to [facility]. This time he underwent an EGD and colonoscopy which only found hemorrhoids. He also had a paracentesis w/ 1L drained. He was told he has alcoholic hepatitis but some time has to pass until he is declared to have cirrhosis. At that time he was started on prednisone. For the last months he has been feeling well. Ascites has not re-accumulated and his massive LE edema has completely resolved. He com es in today because for just the last several days he's been feeling weak, tired, extremely thirsty and has had polyuria. In the ED his FSG is noted 904 w/ associated pseudohyponatremia and KELVIN. The pt's stay was uneventful. W/ hydration this kidney function returned to normal. His spironolactone was d/c. His glucose also came down and he was d/c w/ lantus 10U only since glycemic control is expected to improve w/ tapering doses of prednisone. He will follow up within a week for re-evaluate spironolactone use and need for insulin w/ PCP. - Discharge Data Discharge Date: 05/06/20 Discharge Disposition: Home, Self-Care 01 Condition: Good - Referral to Home Health Primary Care Physician: PCP None - Discharge Plan *PRESCRIPTION DRUG MONITORING PROGRAM REVIEWED*: Not Applicable *COPY OF PRESCRIPTION DRUG MONITORING REPORT IN PATIENT GERARDO: Not Applicable Prescriptions/Med Rec: Insulin Glarg,Human.Rec.Analog [Lantus] 10 unit SUBCUT BEDTIME #1 pen Home Medications: Home Meds Folic Acid 1 mg PO DAILY 05/05/20 [History] Lactulose [Chronulac] 10 gm PO TID 05/05/20 [History] Metoprolol Tartrate 25 mg PO BID 05/05/20 [History] Thiamine [Vitamin B-1] 100 mg PO DAILY 05/05/20 [History] amLODIPine [Norvasc] 5 mg PO DAILY 05/05/20 [History] predniSONE [Prednisone] 20 mg PO DAILY 05/05/20 [History] Insulin Glarg,Human.Rec.Analog [Lantus] 10 unit SUBCUT BEDTIME #1 pen 05/06/20 [Rx] Patient Handouts: Hyperglycemia, [id number], Insulin Injection Instructions, Using Insulin Pens, Adult, Type 2 Diabetes Mellitus, Self Care, Adult, [id number], Insulin Glargine injection Referrals: Bar Woodard ASSESSMENT CLINICIAN [Ordering Only Provider] - (Post hospital follow up appointment on SaturdayMay 11 at 9:30am) - Discharge Summary/Plan Comment DC Time >30 min.: Yes (35 min) - Patient Data Vitals - Most Recent: Last Vital Signs Temp 98.1 F 05/06/20 11:22 Pulse 100 05/06/20 11:22 Resp 18 05/06/20 11:22 BP 141/74 H 05/06/20 11:22 Pulse Ox 100 05/06/20 11:22 Weight - Most Recent: 177 lb 3.2 oz I&O - Last 24 hours: Intake & Output 05/06/20 05/06/20 05/06/20 06:59 14:59 22:59 Intake Total 2500 120 Balance 2500 120 Lab Results - Last 24 hrs: Laboratory Results - last 24 hr 05/05/20 05/05/20 05/05/20 Range/Units 19:25 19:25 20:10 WBC 13.6 H (5.0-10.0) 10^3/uL RBC 3.37 L (4.6-6.2) 10^6/uL Hgb 11.1 L (14.0-18.0) g/dL Hct 32.3 L (40.0-54.0) % MCV 95.8 (80-100) fL MCH 32.9 (27.0-34.0) pg MCHC 34.4 (33.0-35.0) g/dL Plt Count 78 L (150-450) 10^3/uL Neut % (Auto) 93.8 H (42.2-75.2) % Lymph % (Auto) 3.9 L (20.5-50.1) % [place] % (Auto) 2.1 (2-8) % Eos % (Auto) 0.1 L (1.0-3.0) % Baso % (Auto) 0.1 (0.0-1.0) % Add Manual Diff Yes Neutrophils % (Manual) 83 H (42-75) % Band Neutrophils % 9 % Lymphocytes % (Manual) 3 L (20-50) % Atypical Lymphs % 0 % Monocytes % (Manual) 3 (2-8) % Eosinophils % (Manual) 2 (1-3) % Poikilocytosis 1+ slight Anisocytosis 1+ slight PT (9.0-12.0) SEC INR (0.9-1.2) ABG pH (7.35-7.45) ABG pCO2 (35-45) mmHg ABG pO2 (70-100) mmHg ABG HCO3 (22-26) mmol/L ABG O2 Saturation (95-100) % ABG Base Excess ((-2)-(+3)) mmol/L Ariel Test O2 Delivery Device Sodium 125 L (136-145) mmol/L Potassium 5.0 D (3.5-5.1) mmol/L Chloride 91 L (98-107) mmol/L Carbon Dioxide 22 (21-32) mmol/L Anion Gap 17.0 H (7-13) mEq/L BUN 28 H (7-18) mg/dL Creatinine 1.79 H (0.70-1.30) mg/dL Est Cr Clr Drug Dosing 60.34 mL/min Estimated GFR (MDRD) 45 BUN/Creatinine Ratio 15.6 (No establ ref range) Glucose 904 H* (74-99) mg/dL POC Glucose (70-105) mg/dl Calcium 9.4 D (8.5-10.1) mg/dL Total Bilirubin 4.9 H (0.2-1.0) mg/dL AST 35 (15-37) U/L ALT 82 H (16-63) U/L Alkaline Phosphatase 502 H (46-116) U/L Total Protein 7.9 (6.4-8.2) g/dL Albumin 3.7 (3.4-5.0) g/dL Globulin 4.2 Albumin/Globulin Ratio 0.88 Urine Color (YELLOW) Urine Appearance (CLEAR) Urine pH (5.0-9.0) Ur Specific [place] (1.005-1.030) Urine Protein (NEGATIVE) Urine Glucose (UA) (NEGATIVE) Urine Ketones (NEGATIVE) Urine Occult Blood (NEGATIVE) Urine Nitrite (NEGATIVE) Urine Bilirubin (NEGATIVE) Urine Urobilinogen (0.2-1.0) mg/dL Ur Leukocyte Esterase (NEGATIVE) Urine Opiates Screen (NEGATIVE) Ur Oxycodone Screen (NEGATIVE) Urine Methadone Screen (NEGATIVE) Ur Barbiturates Screen (NEGATIVE) U Tricyclic Antidepress (NEGATIVE) Ur Phencyclidine Scrn (NEGATIVE) Ur Amphetamine Screen (NEGATIVE) U Methamphetamines Scrn (NEGATIVE) Urine MDMA Screen (NEGATIVE) U Benzodiazepines Scrn (NEGATIVE) Urine Cocaine Screen (NEGATIVE) U Marijuana (THC) Screen (NEGATIVE) Ketones Negative Influenza Type A RNA Negative (NEGATIVE) Influenza Type B RNA Negative (NEGATIVE) SARS-CoV-2 RNA (NIC) Negative (NEGATIVE) 05/05/20 05/05/20 05/05/20 Range/Units 20:25 20:25 20:45 WBC (5.0-10.0) 10^3/uL RBC (4.6-6.2) 10^6/uL Hgb (14.0-18.0) g/dL Hct (40.0-54.0) % MCV (80-100) fL MCH (27.0-34.0) pg MCHC (33.0-35.0) g/dL Plt Count (150-450) 10^3/uL Neut % (Auto) (42.2-75.2) % Lymph % (Auto) (20.5-50.1) % [place] % (Auto) (2-8) % Eos % (Auto) (1.0-3.0) % Baso % (Auto) (0.0-1.0) % Add Manual Diff Neutrophils % (Manual) (42-75) % Band Neutrophils % % Lymphocytes % (Manual) (20-50) % Atypical Lymphs % % Monocytes % (Manual) (2-8) % Eosinophils % (Manual) (1-3) % Poikilocytosis Anisocytosis PT (9.0-12.0) SEC INR (0.9-1.2) ABG pH 7.40 (7.35-7.45) ABG pCO2 32 L (35-45) mmHg ABG pO2 91 (70-100) mmHg ABG HCO3 18.9 L (22-26) mmol/L ABG O2 Saturation 98 (95-100) % ABG Base Excess -5 L ((-2)-(+3)) mmol/L Ariel Test pos O2 Delivery Device Room air Sodium (136-145) mmol/L Potassium (3.5-5.1) mmol/L Chloride (98-107) mmol/L Carbon Dioxide (21-32) mmol/L Anion Gap (7-13) mEq/L BUN (7-18) mg/dL Creatinine (0.70-1.30) mg/dL Est Cr Clr Drug Dosing mL/min Estimated GFR (MDRD) BUN/Creatinine Ratio (No establ ref range) Glucose (74-99) mg/dL POC Glucose (70-105) mg/dl Calcium (8.5-10.1) mg/dL Total Bilirubin (0.2-1.0) mg/dL AST (15-37) U/L ALT (16-63) U/L Alkaline Phosphatase (46-116) U/L Total Protein (6.4-8.2) g/dL Albumin (3.4-5.0) g/dL Globulin Albumin/Globulin Ratio Urine Color Yellow (YELLOW) Urine Appearance Clear (CLEAR) Urine pH 6.0 (5.0-9.0) Ur Specific [place] 1.010 (1.005-1.030) Urine Protein Negative (NEGATIVE) Urine Glucose (UA) >=1000 H (NEGATIVE) Urine Ketones Negative (NEGATIVE) Urine Occult Blood Negative (NEGATIVE) Urine Nitrite Negative (NEGATIVE) Urine Bilirubin Negative (NEGATIVE) Urine Urobilinogen 0.2 (0.2-1.0) mg/dL Ur Leukocyte Esterase Negative (NEGATIVE) Urine Opiates Screen Negative (NEGATIVE) Ur Oxycodone Screen Negative (NEGATIVE) Urine Methadone Screen Negative (NEGATIVE) Ur Barbiturates Screen Negative (NEGATIVE) U Tricyclic Antidepress Negative (NEGATIVE) Ur Phencyclidine Scrn Negative (NEGATIVE) Ur Amphetamine Screen Negative (NEGATIVE) U Methamphetamines Scrn Negative (NEGATIVE) Urine MDMA Screen Negative (NEGATIVE) U Benzodiazepines Scrn Negative (NEGATIVE) Urine Cocaine Screen Negative (NEGATIVE) U Marijuana (THC) Screen Negative (NEGATIVE) Ketones Influenza Type A RNA (NEGATIVE) Influenza Type B RNA (NEGATIVE) SARS-CoV-2 RNA (NIC) (NEGATIVE) 05/05/20 05/06/20 05/06/20 Range/Units 21:56 02:20 06:12 WBC (5.0-10.0) 10^3/uL RBC (4.6-6.2) 10^6/uL Hgb (14.0-18.0) g/dL Hct (40.0-54.0) % MCV (80-100) fL MCH (27.0-34.0) pg MCHC (33.0-35.0) g/dL Plt Count (150-450) 10^3/uL Neut % (Auto) (42.2-75.2) % Lymph % (Auto) (20.5-50.1) % [place] % (Auto) (2-8) % Eos % (Auto) (1.0-3.0) % Baso % (Auto) (0.0-1.0) % Add Manual Diff Neutrophils % (Manual) (42-75) % Band Neutrophils % % Lymphocytes % (Manual) (20-50) % Atypical Lymphs % % Monocytes % (Manual) (2-8) % Eosinophils % (Manual) (1-3) % Poikilocytosis Anisocytosis PT (9.0-12.0) SEC INR (0.9-1.2) ABG pH (7.35-7.45) ABG pCO2 (35-45) mmHg ABG pO2 (70-100) mmHg ABG HCO3 (22-26) mmol/L ABG O2 Saturation (95-100) % ABG Base Excess ((-2)-(+3)) mmol/L Ariel Test O2 Delivery Device Sodium (136-145) mmol/L Potassium (3.5-5.1) mmol/L Chloride (98-107) mmol/L Carbon Dioxide (21-32) mmol/L Anion Gap (7-13) mEq/L BUN (7-18) mg/dL Creatinine (0.70-1.30) mg/dL Est Cr Clr Drug Dosing mL/min Estimated GFR (MDRD) BUN/Creatinine Ratio (No establ ref range) Glucose (74-99) mg/dL POC Glucose > 500 H* 378 H 192 H (70-105) mg/dl Calcium (8.5-10.1) mg/dL Total Bilirubin (0.2-1.0) mg/dL AST (15-37) U/L ALT (16-63) U/L Alkaline Phosphatase (46-116) U/L Total Protein (6.4-8.2) g/dL Albumin (3.4-5.0) g/dL Globulin Albumin/Globulin Ratio Urine Color (YELLOW) Urine Appearance (CLEAR) Urine pH (5.0-9.0) Ur Specific [place] (1.005-1.030) Urine Protein (NEGATIVE) Urine Glucose (UA) (NEGATIVE) Urine Ketones (NEGATIVE) Urine Occult Blood (NEGATIVE) Urine Nitrite (NEGATIVE) Urine Bilirubin (NEGATIVE) Urine Urobilinogen (0.2-1.0) mg/dL Ur Leukocyte Esterase (NEGATIVE) Urine Opiates Screen (NEGATIVE) Ur Oxycodone Screen (NEGATIVE) Urine Methadone Screen (NEGATIVE) Ur Barbiturates Screen (NEGATIVE) U Tricyclic Antidepress (NEGATIVE) Ur Phencyclidine Scrn (NEGATIVE) Ur Amphetamine Screen (NEGATIVE) U Methamphetamines Scrn (NEGATIVE) Urine MDMA Screen (NEGATIVE) U Benzodiazepines Scrn (NEGATIVE) Urine Cocaine Screen (NEGATIVE) U Marijuana (THC) Screen (NEGATIVE) Ketones Influenza Type A RNA (NEGATIVE) Influenza Type B RNA (NEGATIVE) SARS-CoV-2 RNA (NIC) (NEGATIVE) 05/06/20 05/06/20 05/06/20 Range/Units 06:15 06:15 07:42 WBC (5.0-10.0) 10^3/uL RBC (4.6-6.2) 10^6/uL Hgb (14.0-18.0) g/dL Hct (40.0-54.0) % MCV (80-100) fL MCH (27.0-34.0) pg MCHC (33.0-35.0) g/dL Plt Count (150-450) 10^3/uL Neut % (Auto) (42.2-75.2) % Lymph % (Auto) (20.5-50.1) % [place] % (Auto) (2-8) % Eos % (Auto) (1.0-3.0) % Baso % (Auto) (0.0-1.0) % Add Manual Diff Neutrophils % (Manual) (42-75) % Band Neutrophils % % Lymphocytes % (Manual) (20-50) % Atypical Lymphs % % Monocytes % (Manual) (2-8) % Eosinophils % (Manual) (1-3) % Poikilocytosis Anisocytosis PT 12.9 H (9.0-12.0) SEC INR 1.3 H (0.9-1.2) ABG pH (7.35-7.45) ABG pCO2 (35-45) mmHg ABG pO2 (70-100) mmHg ABG HCO3 (22-26) mmol/L ABG O2 Saturation (95-100) % ABG Base Excess ((-2)-(+3)) mmol/L Ariel Test O2 Delivery Device Sodium 139 D (136-145) mmol/L Potassium 3.5 D (3.5-5.1) mmol/L Chloride 105 D (98-107) mmol/L Carbon Dioxide 19 L (21-32) mmol/L Anion Gap 18.5 H (7-13) mEq/L BUN 17 (7-18) mg/dL Creatinine 1.10 (0.70-1.30) mg/dL Est Cr Clr Drug Dosing 98.19 mL/min Estimated GFR (MDRD) > 60 BUN/Creatinine Ratio 15.5 (No establ ref range) Glucose 185 H (74-99) mg/dL POC Glucose 154 H (70-105) mg/dl Calcium 8.1 L (8.5-10.1) mg/dL Total Bilirubin 3.6 H (0.2-1.0) mg/dL AST 18 (15-37) U/L ALT 56 (16-63) U/L Alkaline Phosphatase 331 H (46-116) U/L Total Protein 6.4 (6.4-8.2) g/dL Albumin 2.9 L (3.4-5.0) g/dL Globulin 3.5 Albumin/Globulin Ratio 0.83 Urine Color (YELLOW) Urine Appearance (CLEAR) Urine pH (5.0-9.0) Ur Specific [place] (1.005-1.030) Urine Protein (NEGATIVE) Urine Glucose (UA) (NEGATIVE) Urine Ketones (NEGATIVE) Urine Occult Blood (NEGATIVE) Urine Nitrite (NEGATIVE) Urine Bilirubin (NEGATIVE) Urine Urobilinogen (0.2-1.0) mg/dL Ur Leukocyte Esterase (NEGATIVE) Urine Opiates Screen (NEGATIVE) Ur Oxycodone Screen (NEGATIVE) Urine Methadone Screen (NEGATIVE) Ur Barbiturates Screen (NEGATIVE) U Tricyclic Antidepress (NEGATIVE) Ur Phencyclidine Scrn (NEGATIVE) Ur Amphetamine Screen (NEGATIVE) U Methamphetamines Scrn (NEGATIVE) Urine MDMA Screen (NEGATIVE) U Benzodiazepines Scrn (NEGATIVE) Urine Cocaine Screen (NEGATIVE) U Marijuana (THC) Screen (NEGATIVE) Ketones Influenza Type A RNA (NEGATIVE) Influenza Type B RNA (NEGATIVE) SARS-CoV-2 RNA (NIC) (NEGATIVE) Med Orders - Current: Current Medications Discontinued Medications Amlodipine Besylate (Amlodipine 5 Mg Tab) 5 mg PO DAILY [facility] Last Admin: 05/06/20 09:16 Dose: 5 mg Documented by: Dextrose/Water (50% Dextrose In Water 50 Ml Syringe) 50 ml IV ASDIRECTED PRN PRN Reason: Hypoglycemia Folic Acid (Folic Acid 1 Mg Tab) 1 mg PO DAILY [facility] Last Admin: 05/06/20 09:16 Dose: 1 mg Documented by: Glucagon (Glucagon,Human Recombinant 1 Mg Vial) 1 mg IM ASDIRECTED PRN PRN Reason: Hypoglycemia Heparin Sodium (Porcine) (Heparin Sodium 5,000 Units/Ml Vial) 5,000 units SUBCUT Q8HR [facility] Last Admin: 05/06/20 06:18 Dose: Not Given Documented by: Sodium Chloride (Normal Saline) 1,000 mls @ 999 mls/hr IV .BOLUS ONE Stop: 05/05/20 20:58 Last Admin: 05/05/20 20:07 Dose: 999 mls/hr Documented by: Sodium Chloride (Normal Saline) 1,000 mls @ 999 mls/hr IV .BOLUS [facility] Last Admin: 05/05/20 22:40 Dose: 999 mls/hr Documented by: Sodium Chloride (Normal Saline) 1,000 mls @ 150 mls/hr IV ASDIRECTED [facility] Last Admin: 05/06/20 06:06 Dose: 150 mls/hr Documented by: Insulin Glargine (Insulin Glarg,Human.Rec.Analog 100 Unit/Ml) 20 unit SUBCUT BEDTIME FARHAT Insulin Glargine (Insulin Glarg,Human.Rec.Analog 100 Unit/Ml) 20 unit SUBCUT BEDTIME [facility] Last Admin: 05/05/20 22:42 Dose: 20 units Documented by: Insulin Human Lispro (Insulin Lispro 100 Units/Ml 3 Ml Vial) 0 unit SUBCUT Q4H [facility]; Protocol Last Admin: 05/06/20 10:11 Dose: Not Given Documented by: Metoprolol Tartrate (Metoprolol Tartrate 25 Mg Tab) 25 mg PO BID [facility] Last Admin: 05/06/20 09:17 Dose: 25 mg Documented by: Prednisone (Prednisone 20 Mg Tab) 20 mg PO DAILY [facility] Stop: 05/08/20 09:01 Last Admin: 05/06/20 09:17 Dose: 20 mg Documented by: Spironolactone (Spironolactone 25 Mg Tab) 50 mg PO BID [facility] Last Admin: 05/06/20 09:18 Dose: Not Given Documented by: Thiamine HCl (Thiamine 100 Mg Tab) 100 mg PO DAILY [facility] Last Admin: 05/06/20 09:16 Dose: 100 mg Documented by: - Exam Quality Assessment: Denies: Supplemental Oxygen General: Reports: Alert, Oriented, Cooperative HEENT: Reports: Pupils Equal, Pupils Reactive Neck: Reports: Supple Lungs: Reports: Clear to Auscultation, Normal Respiratory Effort Cardiovascular: Reports: Regular Rate, Regular Rhythm, No Murmurs GI/Abdominal Exam: Normal Bowel Sounds, Soft, Non-Tender, No Distention Back Exam: Reports: Normal Inspection Extremities: No Pedal Edema Skin: Reports: Warm, Dry, Intact Wound/Incisions: Reports: Healing Well Neurological: Reports: No New Focal Deficit Psy/Mental Status: Reports: Alert, Normal Affect, Normal Mood
[2020-05-06] MEDS ORDERED: Insulin Glarg,Human.Rec.Analog 100 Unit/ML SUBCUT SCH (22:09)
== END 2020-05-06 11:35 | disposition home or self-care (01) ==
LOC: DL.ED 17:58 → DL.MS 21:10 → DL.ED 21:30
PROVIDERS: ADMIT Internal Medicine; ATTEND Internal Medicine
DX: E11.65 Type 2 diabetes mellitus with hyperglycemia (principal); I10 Essential (primary) hypertension; K70.10 Alcoholic hepatitis without ascites; E87.1 Hypo-osmolality and hyponatremia; N17.9 Acute kidney failure, unspecified; Z20.822 Contact with and (suspected) exposure to COVID-19; Z79.899 Other long term (current) drug therapy
CPT/HCPCS: 0240U; 36415; 36600; 80053; 80305; 81003; 82009; 82803; 82962; 85025; 85610; 99285; A9270; J1815; J7030; J7040; J7512; 99217; 99219; 99284; G0378; J1644

== ENCOUNTER 2020-08-20 22:46 | Emergency (ER) | payer MEDICAID ==
--- NOTE | 2020-08-20 23:12 | EDM.PDOC ---
ED HPI GENERAL MEDICAL PROBLEM - General Chief Complaint: Allergic Reaction Stated Complaint: ALLERGIC REACTION, DIFFICULTY BREATHING Time Seen by Provider: 08/20/20 23:11 Source of Information: Reports: Patient, RN, RN Notes Reviewed History Limitations: Reports: No Limitations - History of Present Illness INITIAL COMMENTS - FREE TEXT/NARRATIVE: Patient is a 30-year-old male who presents to ER with complaint of upper lip swelling. He states a little prior to arrival he was eating pepperoni pizza and cheese bread when his upper lip began to swell. He states he felt somewhat short of breath at that time as well. Denies any shortness of breath at this time, denies scratchy or itchy throat, denies any difficulty with swallowing. Denies swelling anywhere other than the upper lip. Patient denies any known allergies prior to today. Onset: Today, Sudden - Related Data Allergies Allergy/AdvReac Type Severity Reaction Status Date / Time No Known Allergies Allergy Verified 03/12/20 20:27 Home Meds: Home Meds Folic Acid 1 mg PO DAILY 05/05/20 [History] Lactulose [Chronulac] 10 gm PO TID 05/05/20 [History] Metoprolol Tartrate 25 mg PO BID 05/05/20 [History] Thiamine [Vitamin B-1] 100 mg PO DAILY 05/05/20 [History] amLODIPine [Norvasc] 5 mg PO DAILY 05/05/20 [History] Past Medical History Cardiovascular History: Reports: Hypertension Gastrointestinal History: Reports: Fatty Liver Neurological History: Reports: Concussion Psychiatric History: Reports: Addiction Endocrine/Metabolic History: Reports: Diabetes, Type II Other Endocrine/Metabolic History: States he was tested once and they stated he was pre diabetic. Never followed up. Hematologic History: Reports: Folic Acid - Past Surgical History GI Surgical History: Reports: Colonoscopy, EGD, Other (See Below) Other GI Surgeries/Procedures: abd fluid drained Male Surgical History: Reports: Circumcision Social & Family History - Family History Family Medical History: No Pertinent Family History - Tobacco Use Tobacco Use Status *Q: Never Tobacco User Second Hand Smoke Exposure: No - Caffeine Use Caffeine Use: Reports: Soda Other Caffeine Use: 1 soda /day - Recreational Drug Use Recreational Drug Use: No ED ROS ALLERGIC REACTION - Review of Systems Review Of Systems: Comprehensive ROS is negative, except as noted in HPI. ED EXAM GENERAL NO PERIP PULSE - Physical Exam Exam: See Below Exam Limited By: No Limitations General Appearance: Alert, WD/WN, No Apparent Distress Eye Exam: Bilateral Eye: EOMI, Normal Inspection Ears: Normal External Exam, Hearing Grossly Normal, Other (TMs obscured by cerumen) Nose: Normal Inspection, Normal Mucosa, No Blood Throat/Mouth: Normal Inspection, Normal Teeth, Normal Gums, Normal Oropharynx, Normal Voice, No Airway Compromise, Other (upper lip swelling) Head: Atraumatic, Normocephalic Neck: Normal Inspection, Supple, Non-Tender, Full Range of Motion Respiratory/Chest: No Respiratory Distress, Lungs Clear, Normal Breath Sounds, No Accessory Muscle Use, Chest Non-Tender Cardiovascular: Normal Peripheral Pulses, Regular Rate, Rhythm, No Edema, No Gallop, No JVD, No Murmur, No Rub GI/Abdominal: Normal Bowel Sounds, Soft, Non-Tender (Male) Exam: Deferred Rectal (Males) Exam: Deferred Back Exam: Normal Inspection, Full Range of Motion, NT Extremities: Normal Inspection, Normal Range of Motion, Non-Tender, Normal Capillary Refill, No Pedal Edema Neurological: Alert, Oriented, CN II-XII Intact, Normal Cognition, Normal Gait, Normal Reflexes, No Motor/Sensory Deficits Psychiatric: Normal Affect, Normal Mood, Anxious Skin Exam: Warm, Dry, Intact, Normal Color, No Rash Lymphatic: No Adenopathy Course - Vital Signs Last Recorded V/S: Last Vital Signs Temp 99.2 F 08/20/20 23:09 Pulse 96 08/20/20 23:09 Resp 18 08/20/20 23:09 BP 162/91 H 08/20/20 23:09 Pulse Ox 100 08/20/20 23:09 - Orders/Labs/Meds Labs: Laboratory Tests 08/20/20 08/20/20 Range/Units 23:38 23:38 WBC 8.2 (5.0-10.0) 10^3/uL RBC 3.04 L (4.6-6.2) 10^6/uL Hgb 9.6 L D (14.0-18.0) g/dL Hct 28.1 L (40.0-54.0) % MCV 92.4 D (80-100) fL MCH 31.6 (27.0-34.0) pg MCHC 34.2 (33.0-35.0) g/dL Plt Count 68 L (150-450) 10^3/uL Neut % (Auto) 72.4 (42.2-75.2) % Lymph % (Auto) 15.4 L (20.5-50.1) % [place] % (Auto) 9.8 H (2-8) % Eos % (Auto) 1.5 (1.0-3.0) % Baso % (Auto) 0.9 (0.0-1.0) % Sodium 140 (136-145) mmol/L Potassium 3.2 L (3.5-5.1) mmol/L Chloride 102 (98-107) mmol/L Carbon Dioxide 24 (21-32) mmol/L Anion Gap 17.2 H (7-13) mEq/L BUN 5 L (7-18) mg/dL Creatinine 0.77 (0.70-1.30) mg/dL Est Cr Clr Drug Dosing 135.71 mL/min Estimated GFR (MDRD) > 60 BUN/Creatinine Ratio 6.5 (No establ ref range) Glucose 125 H (70-99) mg/dL Calcium 8.8 (8.5-10.1) mg/dL Total Bilirubin 2.8 H (0.2-1.0) mg/dL AST 76 H (15-37) U/L ALT 27 (16-63) U/L Alkaline Phosphatase 162 H (46-116) U/L C-Reactive Protein 0.3 (0.0-0.9) mg/dL Total Protein 8.0 (6.4-8.2) g/dL Albumin 3.7 (3.4-5.0) g/dL Globulin 4.3 Albumin/Globulin Ratio 0.9 Meds: Medications Discontinued Medications Generic Name Dose Route Start Last Admin Trade Name Freq PRN Reason Stop Dose Admin Famotidine 20 mg 08/20/20 23:28 08/20/20 23:44 Famotidine 20 Mg/2 Ml Sdv IVPUSH 08/20/20 23:29 20 mg ONETIME ONE Administration Sodium Chloride 1,000 mls @ 999 mls/hr 08/20/20 23:28 08/20/20 23:40 Normal Saline IV 08/21/20 00:28 999 mls/hr .BOLUS ONE Administration Methylprednisolone Sodium Succinate 125 mg 08/20/20 23:28 08/20/20 23:41 Methylprednisolone Sodium Succinate 125 Mg/2 Ml Sdv IVPUSH 08/20/20 23:29 125 mg ONETIME ONE Administration - Re-Assessments/Exams Free Text/Narrative Re-Assessment/Exam: 08/21/20 00:36 Patient states feeling improvement, upper lip has decreased swelling. Departure - Departure Time of Disposition: 00:36 Disposition: Home, Self-Care 01 Condition: Good Clinical Impression: Swelling of upper lip Allergic reaction Qualifiers: Encounter type: initial encounter Qualified Code(s): T78.40XA - Allergy, unspecified, initial encounter - Discharge Information *PRESCRIPTION DRUG MONITORING PROGRAM REVIEWED*: No *COPY OF PRESCRIPTION DRUG MONITORING REPORT IN PATIENT GERARDO: No Instructions: Allergies, Adult, [id number], Anaphylactic Reaction, Adult Forms: ED Department Discharge Additional Instructions: May use Benadryl as directed for swelling, itching, allergies Return to the ER with any worsening of problems Follow-up with your primary care provider in the clinic next week Begin taking your already prescribed iron Sepsis Event Note (ED) - Evaluation Sepsis Screening Result: No Definite Risk - Focused Exam Vital Signs: Vital Signs Temp Pulse Resp BP Pulse Ox 08/20/20 23:09 99.2 F 96 18 162/91 H 100
[2020-08-20] MEDS ORDERED: Famotidine 20 MG/2 ML SDV IVPUSH ONE (23:28)
[2020-08-20] MEDS ORDERED: methylPREDNISolone Sodium Succinate 125 MG/2 ML SDV IVPUSH ONE (23:28)
[2020-08-20] MEDS ORDERED: Sodium Chloride 0.9% 1,000 ML IV ONE (23:28)
[2020-08-21 00:03] LABS: ANION GAP 17.2 mEq/L (7-13); CHLORIDE,CL 102 mmol/L (98-107); SODIUM,NA 140 mmol/L (136-145)
== END 2020-08-21 00:54 | disposition home or self-care (01) ==
LOC: DL.ED 22:46
DX: T78.1XXA Other adverse food reactions, not elsewhere classified, initial encounter (principal); E11.9 Type 2 diabetes mellitus without complications; I10 Essential (primary) hypertension
CPT/HCPCS: 36415; 80053; 85025; 86140; 96374; 96375; 99283; J2930; J3490; J7030

== ENCOUNTER 2021-01-03 16:34 | Inpatient (IN) | payer MEDICAID ==
[2021-01-03] MEDS ORDERED: Ondansetron 4 MG/2 ML SDV IVPUSH ONE (16:49)
[2021-01-03] MEDS ORDERED: MVI, Adult with Vitamin K 10 ML, Folic Acid 1 MG, Thiamine 100 MG in Lactated Ringers 1... IV ONE ×4 (16:49)
--- NOTE | 2021-01-03 17:15 | EDM.PDOCBH ---
ED HPI GENERAL MEDICAL PROBLEM - General Chief Complaint: Drug or Alcohol Abuse Stated Complaint: TRIED TO STOP DRINKING, UNABLE TO EAT,DRINK Time Seen by Provider: 01/03/21 16:58 Source of Information: Reports: Patient History Limitations: Reports: No Limitations - History of Present Illness INITIAL COMMENTS - FREE TEXT/NARRATIVE: This 30 yo male patient reports to the ED due to alcohol withdrawals. The patient reports he has not had any alcohol since Saturday morning, but has been nauseated and vomiting since that time. The patient reports he has had hallucinations in the past after he quit drinking. The patient reports he has noticed increased jaundice over the past couple of weeks. The patient reports he was treated for alcohol withdrawals and liver cirrhosis/jaundice. The patient reports he was in [place] for about 2 months during the last episode. The patient reports he has been following up with specialists, but started drinking due to job dissatisfaction. Onset Date: 01/01/21 Duration: Constant, Getting Worse Location: Reports: Generalized Quality: Reports: Other Severity: Moderate Improves with: Reports: None Worsens with: Reports: None Context: Reports: Other Associated Symptoms: Reports: No Other Symptoms - Related Data Allergies Allergy/AdvReac Type Severity Reaction Status Date / Time No Known Allergies Allergy Verified 03/12/20 20:27 Home Meds: Home Meds Folic Acid 1 mg PO DAILY 05/05/20 [History] Lactulose [Chronulac] 10 gm PO TID 05/05/20 [History] Metoprolol Tartrate 25 mg PO BID 05/05/20 [History] Thiamine [Vitamin B-1] 100 mg PO DAILY 05/05/20 [History] amLODIPine [Norvasc] 5 mg PO DAILY 05/05/20 [History] Past Medical History - Past Health History Medical/Surgical History: Denies Medical/Surgical History Cardiovascular History: Reports: Hypertension Gastrointestinal History: Reports: Fatty Liver Neurological History: Reports: Concussion Psychiatric History: Reports: Addiction Endocrine/Metabolic History: Reports: Diabetes, Type II Other Endocrine/Metabolic History: States he was tested once and they stated he was pre diabetic. Never followed up. Hematologic History: Reports: Folic Acid - Past Surgical History GI Surgical History: Reports: Colonoscopy, EGD, Other (See Below) Other GI Surgeries/Procedures: abd fluid drained Male Surgical History: Reports: Circumcision Social & Family History - Family History Family Medical History: No Pertinent Family History - Tobacco Use Tobacco Use Status *Q: Never Tobacco User Second Hand Smoke Exposure: Yes - Caffeine Use Caffeine Use: Reports: None Other Caffeine Use: 1 soda /day - Alcohol Use Days Per Week of Alcohol Use: 5 Number of Drinks Per Day: 12 Total Drinks Per Week: 60 - Recreational Drug Use Recreational Drug Use: No ED ROS GENERAL - Review of Systems Review Of Systems: Comprehensive ROS is negative, except as noted in HPI. ED EXAM, BEHAVIORAL HEALTH - Physical Exam Exam: See Below Exam Limited By: No Limitations General Appearance: Alert, WD/WN, Moderate Distress Eye Exam: Bilateral Eye: EOMI, Normal Inspection, PERRL, Other (Jaundice) Ears: Normal External Exam, Normal Canal, Hearing Grossly Normal, Normal TMs Nose: Normal Inspection, Normal Mucosa, No Blood Throat/Mouth: Normal Inspection, Normal Lips, Normal Teeth, Normal Gums, Normal Oropharynx, Normal Voice, No Airway Compromise Head: Atraumatic, Normocephalic Neck: Normal Inspection, Supple, Non-Tender, Full Range of Motion Respiratory/Chest: No Respiratory Distress, Lungs Clear, Normal Breath Sounds, No Accessory Muscle Use, Chest Non-Tender Cardiovascular: Normal Peripheral Pulses, Regular Rate, Rhythm, No Edema, No Gallop, No JVD, No Murmur, No Rub GI/Abdominal: Normal Bowel Sounds, Soft, Non-Tender, No Organomegaly, No Distention, No Abnormal Bruit, No Mass (Male) Exam: Deferred Rectal (Males) Exam: Deferred Back Exam: Normal Inspection, Full Range of Motion, NT Extremities: Normal Inspection, Normal Range of Motion, Non-Tender, Normal Capillary Refill, No Pedal Edema Neurological: Alert, Normal Mood/Affect, CN II-XII Intact, Normal Cognition, Normal Gait, Normal Reflexes, No Motor/Sensory Deficits, Oriented x 3 Psychiatric: Alert, Normal Affect, Restless, Agitated Skin Exam: Warm, Dry, Intact, Normal color, No rash COURSE, BEHAVIORAL HEALTH COMP - Course Vital Signs: Last Vital Signs Temp 100.5 F 01/03/21 16:54 Pulse 98 01/03/21 16:54 Resp 14 01/03/21 16:54 BP 142/66 H 01/03/21 16:54 Pulse Ox 100 01/03/21 16:54 Orders, Labs, Meds: Active Orders 24 hr Category Date Time Status AMMONIA VENOUS [CHEM] Stat Lab 01/03/21 16:44 Ordered CULTURE URINE [RM] Stat Lab 01/03/21 16:43 Received Magnesium Sulfate/Water [Magnesium Sulfate in Water 2 Med 01/03/21 17:58 Ordered GM/50 ML] 2 gm Premix Bag 1 bag IV ONETIME Medication Orders Magnesium Sulfate 2 gm/ Premix 50 mls @ 25 mls/hr IV ONETIME ONE Stop: 01/03/21 19:57 Laboratory Tests 01/03/21 01/03/21 01/03/21 Range/Units 16:43 16:43 16:53 WBC (5.0-10.0) 10^3/uL RBC (4.6-6.2) 10^6/uL Hgb (14.0-18.0) g/dL Hct (40.0-54.0) % MCV (80-100) fL MCH (27.0-34.0) pg MCHC (33.0-35.0) g/dL Plt Count (150-450) 10^3/uL Neut % (Auto) (42.2-75.2) % Lymph % (Auto) (20.5-50.1) % [place] % (Auto) (2-8) % Eos % (Auto) (1.0-3.0) % Baso % (Auto) (0.0-1.0) % Sodium (136-145) mmol/L Potassium (3.5-5.1) mmol/L Chloride (98-107) mmol/L Carbon Dioxide (21-32) mmol/L Anion Gap (7-13) mEq/L BUN (7-18) mg/dL Creatinine (0.70-1.30) mg/dL Est Cr Clr Drug Dosing Estimated GFR (MDRD) BUN/Creatinine Ratio (No establ ref range) Glucose (70-99) mg/dL Calcium (8.5-10.1) mg/dL Magnesium (1.8-2.4) mg/dL Total Bilirubin (0.2-1.0) mg/dL AST (15-37) U/L ALT (16-63) U/L Alkaline Phosphatase (46-116) U/L Total Protein (6.4-8.2) g/dL Albumin (3.4-5.0) g/dL Globulin Albumin/Globulin Ratio Amylase (25-115) U/L Urine Color Melissa (YELLOW) Urine Appearance Cloudy (CLEAR) Urine pH 7.0 (5.0-9.0) Ur Specific Dolph 1.020 (1.005-1.030) Urine Protein 30 H (NEGATIVE) Urine Glucose (UA) Negative (NEGATIVE) Urine Ketones 40 H (NEGATIVE) Urine Occult Blood Negative (NEGATIVE) Urine Nitrite Positive H (NEGATIVE) Urine Bilirubin Moderate H (NEGATIVE) Urine Urobilinogen >=8.0 H (0.2-1.0) mg/dL Ur Leukocyte Esterase Small H (NEGATIVE) Urine RBC Not seen (0-5) /HPF Urine WBC 30-40 H (0-5/HPF) /HPF Ur Epithelial Cells Rare (NOT SEEN) /HPF Urine Bacteria Moderate H (0-FEW/HPF) /HPF Salicylates (2.8-20(Therapeutic)) mg/dL Urine Opiates Screen Negative (NEGATIVE) Ur Oxycodone Screen Negative (NEGATIVE) Urine Methadone Screen Negative (NEGATIVE) Acetaminophen (10-30 (Therapeutic)) ug/mL Ur Barbiturates Screen Negative (NEGATIVE) U Tricyclic Antidepress Negative (NEGATIVE) Ur Phencyclidine Scrn Negative (NEGATIVE) Ur Amphetamine Screen Negative (NEGATIVE) U Methamphetamines Scrn Negative (NEGATIVE) Urine MDMA Screen Negative (NEGATIVE) U Benzodiazepines Scrn Negative (NEGATIVE) Urine Cocaine Screen Negative (NEGATIVE) U Marijuana (THC) Screen Negative (NEGATIVE) Ethyl Alcohol (0) mg/dL Influenza Type A RNA Negative (NEGATIVE) Influenza Type B RNA Negative (NEGATIVE) SARS-CoV-2 RNA (NIC) Negative (NEGATIVE) 01/03/21 01/03/21 01/03/21 Range/Units 16:57 16:57 16:57 WBC 13.2 H (5.0-10.0) 10^3/uL RBC 2.84 L (4.6-6.2) 10^6/uL Hgb 10.0 L (14.0-18.0) g/dL Hct 28.6 L (40.0-54.0) % MCV 100.7 H D (80-100) fL MCH 35.2 H (27.0-34.0) pg MCHC 35.0 (33.0-35.0) g/dL Plt Count 55 L (150-450) 10^3/uL Neut % (Auto) 81.6 H (42.2-75.2) % Lymph % (Auto) 9.9 L (20.5-50.1) % Mes[place] % (Auto) 8.1 H (2-8) % Eos % (Auto) 0.1 L (1.0-3.0) % Baso % (Auto) 0.3 (0.0-1.0) % Sodium 136 (136-145) mmol/L Potassium 3.0 L (3.5-5.1) mmol/L Chloride 92 L (98-107) mmol/L Carbon Dioxide 27 (21-32) mmol/L Anion Gap 20.0 H (7-13) mEq/L BUN 20 H (7-18) mg/dL Creatinine 1.19 (0.70-1.30) mg/dL Est Cr Clr Drug Dosing TNP Estimated GFR (MDRD) > 60 BUN/Creatinine Ratio 16.8 (No establ ref range) Glucose 135 H (70-99) mg/dL Calcium 9.1 (8.5-10.1) mg/dL Magnesium 1.1 L (1.8-2.4) mg/dL Total Bilirubin 12.7 H (0.2-1.0) mg/dL AST 109 H (15-37) U/L ALT 33 (16-63) U/L Alkaline Phosphatase 170 H (46-116) U/L Total Protein 9.2 H (6.4-8.2) g/dL Albumin 3.6 (3.4-5.0) g/dL Globulin 5.6 Albumin/Globulin Ratio 0.6 Amylase 25 (25-115) U/L Urine Color (YELLOW) Urine Appearance (CLEAR) Urine pH (5.0-9.0) Ur Specific Dolph (1.005-1.030) Urine Protein (NEGATIVE) Urine Glucose (UA) (NEGATIVE) Urine Ketones (NEGATIVE) Urine Occult Blood (NEGATIVE) Urine Nitrite (NEGATIVE) Urine Bilirubin (NEGATIVE) Urine Urobilinogen (0.2-1.0) mg/dL Ur Leukocyte Esterase (NEGATIVE) Urine RBC (0-5) /HPF Urine WBC (0-5/HPF) /HPF Ur Epithelial Cells (NOT SEEN) /HPF Urine Bacteria (0-FEW/HPF) /HPF Salicylates < 2.8 L (2.8-20(Therapeutic)) mg/dL Urine Opiates Screen (NEGATIVE) Ur Oxycodone Screen (NEGATIVE) Urine Methadone Screen (NEGATIVE) Acetaminophen 0 L (10-30 (Therapeutic)) ug/mL Ur Barbiturates Screen (NEGATIVE) U Tricyclic Antidepress (NEGATIVE) Ur Phencyclidine Scrn (NEGATIVE) Ur Amphetamine Screen (NEGATIVE) U Methamphetamines Scrn (NEGATIVE) Urine MDMA Screen (NEGATIVE) U Benzodiazepines Scrn (NEGATIVE) Urine Cocaine Screen (NEGATIVE) U Marijuana (THC) Screen (NEGATIVE) Ethyl Alcohol < 3 (0) mg/dL Influenza Type A RNA (NEGATIVE) Influenza Type B RNA (NEGATIVE) SARS-CoV-2 RNA (NIC) (NEGATIVE) Medications Generic Name Dose Route Start Last Admin Trade Name Freq PRN Reason Stop Dose Admin Magnesium Sulfate 2 gm/ Premix 50 mls @ 25 mls/hr 01/03/21 17:58 IV 01/03/21 19:57 ONETIME ONE Discontinued Medications Generic Name Dose Route Start Last Admin Trade Name Freq PRN Reason Stop Dose Admin Multivitamins/Minerals 10 ml/ 1,011.2 mls @ 999 mls/hr 01/03/21 16:49 01/03/21 16:58 Folic Acid 1 mg/ Thiamine HCl IV 01/03/21 17:49 999 mls/hr 100 mg/ Lactated Ringer's ONETIME ONE Administration Ondansetron HCl 4 mg 01/03/21 16:49 01/03/21 17:00 Ondansetron 4 Mg/2 Ml Sdv IVPUSH 01/03/21 16:50 4 mg ONETIME ONE Administration Departure - Departure Time of Disposition: 18:09 Disposition: Admitted As Inpatient 66 Condition: Fair Clinical Impression: Hypomagnesemia Alcohol withdrawal syndrome Qualifiers: Complication of substance-induced condition: with unspecified complication Qualified Code(s): F10.239 - Alcohol dependence with withdrawal, unspecified - Discharge Information *PRESCRIPTION DRUG MONITORING PROGRAM REVIEWED*: Not Applicable *COPY OF PRESCRIPTION DRUG MONITORING REPORT IN PATIENT GERARDO: Not Applicable Care Plan Goals: Discussed the patient's history, examination and treatments with Dr. Jaeger. Dr. Jaeger accepted the patient for continued evaluation and treatment as an inpatient at [facility] in [place]. Sepsis Event Note (ED) - Evaluation Sepsis Screening Result: No Definite Risk - Focused Exam Vital Signs: Vital Signs Temp Pulse Resp BP Pulse Ox 01/03/21 16:54 100.5 F 98 14 142/66 H 100 - My Orders Last 24 Hours: My Active Orders 01/03/21 16:43 CULTURE URINE [RM] Stat 01/03/21 16:44 AMMONIA VENOUS [CHEM] Stat 01/03/21 17:58 Magnesium Sulfate/Water [Magnesium Sulfate in Water 2 GM/50 ML] 2 gm Premix Bag 1 bag IV ONETIME - Assessment/Plan Last 24 Hours: My Active Orders 01/03/21 16:43 CULTURE URINE [RM] Stat 01/03/21 16:44 AMMONIA VENOUS [CHEM] Stat 01/03/21 17:58 Magnesium Sulfate/Water [Magnesium Sulfate in Water 2 GM/50 ML] 2 gm Premix Ba g 1 bag IV ONETIME
[2021-01-03 17:30] LABS: AMPHETAMINES,URINE NEGATIVE (NEGATIVE); BARBITURATES,URINE NEGATIVE (NEGATIVE); BENZODIAZEPINE,URINE NEGATIVE (NEGATIVE); MDMA (ECSTASY), URINE NEGATIVE (NEGATIVE); METHADONE,URINE NEGATIVE (NEGATIVE); METHAMPHETAMINES,URINE NEGATIVE (NEGATIVE); OPIATES,URINE NEGATIVE (NEGATIVE); OXYCODONE,URINE NEGATIVE (NEGATIVE); PHENCYCLIDINE,URINE NEGATIVE (NEGATIVE); TCA,URINE NEGATIVE (NEGATIVE)
[2021-01-03 17:48] LABS: CHLORIDE,CL 92 mmol/L (98-107); SODIUM,NA 136 mmol/L (136-145)
[2021-01-03 17:50] LABS: ACETAMINOPHEN 0 ug/mL (10-30 (Therapeutic))
[2021-01-03 17:53] LABS: CORONAVIRUS COVID-19 NAA NEGATIVE (NEGATIVE)
[2021-01-03] MEDS ORDERED: Magnesium Sulfate/Water 2 GM in Premix Bag 1 BAG IV ONE (17:58)
[2021-01-03] MEDS ORDERED: LORazepam 0.5 MG Tab PO PRN (19:37)
[2021-01-03] MEDS ORDERED: Temazepam 15 MG Cap PO PRN (19:38)
[2021-01-03] MEDS ORDERED: Ondansetron 4 MG/2 ML SDV IVPUSH PRN (19:38)
[2021-01-03] MEDS ORDERED: Sodium Chloride 0.9% 10 ML Syringe FLUSH PRN (19:38)
--- NOTE | 2021-01-03 20:07 | PCM.HP ---
H&P History of Present Illness - General Date of Service: 01/03/21 Admit Problem/Dx: Admission Diagnosis/Problem Admission Diagnosis/Problem Alcohol withdrawal syndrome Source of Information: Patient - History of Present Illness Initial Comments - Free Text/Narative: h/o dm - diet controlled, htn, alcoholic liver cirrhosis alcohol addiciton has been drinking for months wanted to quit last drink 01/01 came to er c/o nausea, tremor h/o severe alcohol withdrawal symptoms requiring hospitalization - Related Data Allergies/Adverse Reactions: Allergies Allergy/AdvReac Type Severity Reaction Status Date / Time No Known Allergies Allergy Verified 03/12/20 20:27 Home Medications: Home Meds Folic Acid 1 mg PO DAILY 05/05/20 [History] Lactulose [Chronulac] 10 gm PO TID 05/05/20 [History] Metoprolol Tartrate 25 mg PO BID 05/05/20 [History] Thiamine [Vitamin B-1] 100 mg PO DAILY 05/05/20 [History] amLODIPine [Norvasc] 5 mg PO DAILY 05/05/20 [History] Past Medical History - Past Health History Medical/Surgical History: Denies Medical/Surgical History Cardiovascular History: Reports: Hypertension Gastrointestinal History: Reports: Fatty Liver Neurological History: Reports: Concussion Psychiatric History: Reports: Addiction Endocrine/Metabolic History: Reports: Diabetes, Type II Other Endocrine/Metabolic History: States he was tested once and they stated he was pre diabetic. Never followed up. Hematologic History: Reports: Folic Acid - Past Surgical History GI Surgical History: Reports: Colonoscopy, EGD, Other (See Below) Other GI Surgeries/Procedures: abd fluid drained Male Surgical History: Reports: Circumcision Social & Family History - Family History Family Medical History: No Pertinent Family History - Tobacco Use Tobacco Use Status *Q: Never Tobacco User Second Hand Smoke Exposure: Yes - Caffeine Use Caffeine Use: Reports: None Other Caffeine Use: 1 soda /day - Alcohol Use Days Per Week of Alcohol Use: 5 Number of Drinks Per Day: 12 Total Drinks Per Week: 60 - Recreational Drug Use Recreational Drug Use: No H&P Review of Systems - Review of Systems: Review Of Systems: See Below General: Reports: Malaise, Weakness. Denies: Fever Pulmonary: Denies: Shortness of Breath Cardiovascular: Denies: Chest Pain, Edema Gastrointestinal: Denies: Abdominal Pain Genitourinary: Denies: Dysuria Psychiatric: Reports: Hallucinations (Auditory). Denies: Confusion Neurological: Denies: Confusion Exam - Exam Exam: See Below - Vital Signs Vital Signs: Last Vital Signs Temp 99.9 F 01/03/21 18:44 Pulse 94 01/03/21 18:44 Resp 20 01/03/21 18:44 BP 161/91 H 01/03/21 18:44 Pulse Ox 100 01/03/21 18:44 Weight: 178 lb 3.2 oz - Exam General: Alert, Oriented HEENT: Scleral Icterus Neck: Supple Lungs: Clear to Auscultation, Normal Respiratory Effort Cardiovascular: Regular Rate, Regular Rhythm GI/Abdominal Exam: Normal Bowel Sounds, Soft, Non-Tender, Other (no ascites) Extremities: No Pedal Edema - Patient Data Lab Results Last 24 hrs: Laboratory Results - last 24 hr 01/03/21 01/03/21 01/03/21 Range/Units 16:43 16:43 16:53 WBC (5.0-10.0) 10^3/uL RBC (4.6-6.2) 10^6/uL Hgb (14.0-18.0) g/dL Hct (40.0-54.0) % MCV (80-100) fL MCH (27.0-34.0) pg MCHC (33.0-35.0) g/dL Plt Count (150-450) 10^3/uL Neut % (Auto) (42.2-75.2) % Lymph % (Auto) (20.5-50.1) % [place] % (Auto) (2-8) % Eos % (Auto) (1.0-3.0) % Baso % (Auto) (0.0-1.0) % Sodium (136-145) mmol/L Potassium (3.5-5.1) mmol/L Chloride (98-107) mmol/L Carbon Dioxide (21-32) mmol/L Anion Gap (7-13) mEq/L BUN (7-18) mg/dL Creatinine (0.70-1.30) mg/dL Est Cr Clr Drug Dosing Estimated GFR (MDRD) BUN/Creatinine Ratio (No establ ref range) Glucose (70-99) mg/dL Calcium (8.5-10.1) mg/dL Magnesium (1.8-2.4) mg/dL Total Bilirubin (0.2-1.0) mg/dL AST (15-37) U/L ALT (16-63) U/L Alkaline Phosphatase (46-116) U/L Ammonia (11-32) umol/L Total Protein (6.4-8.2) g/dL Albumin (3.4-5.0) g/dL Globulin Albumin/Globulin Ratio Amylase (25-115) U/L Urine Color Melissa (YELLOW) Urine Appearance Cloudy (CLEAR) Urine pH 7.0 (5.0-9.0) Ur Specific Raymond 1.020 (1.005-1.030) Urine Protein 30 H (NEGATIVE) Urine Glucose (UA) Negative (NEGATIVE) Urine Ketones 40 H (NEGATIVE) Urine Occult Blood Negative (NEGATIVE) Urine Nitrite Positive H (NEGATIVE) Urine Bilirubin Moderate H (NEGATIVE) Urine Urobilinogen >=8.0 H (0.2-1.0) mg/dL Ur Leukocyte Esterase Small H (NEGATIVE) Urine RBC Not seen (0-5) /HPF Urine WBC 30-40 H (0-5/HPF) /HPF Ur Epithelial Cells Rare (NOT SEEN) /HPF Urine Bacteria Moderate H (0-FEW/HPF) /HPF Salicylates (2.8-20(Therapeutic)) mg/dL Urine Opiates Screen Negative (NEGATIVE) Ur Oxycodone Screen Negative (NEGATIVE) Urine Methadone Screen Negative (NEGATIVE) Acetaminophen (10-30 (Therapeutic)) ug/mL Ur Barbiturates Screen Negative (NEGATIVE) U Tricyclic Antidepress Negative (NEGATIVE) Ur Phencyclidine Scrn Negative (NEGATIVE) Ur Amphetamine Screen Negative (NEGATIVE) U Methamphetamines Scrn Negative (NEGATIVE) Urine MDMA Screen Negative (NEGATIVE) U Benzodiazepines Scrn Negative (NEGATIVE) Urine Cocaine Screen Negative (NEGATIVE) U Marijuana (THC) Screen Negative (NEGATIVE) Ethyl Alcohol (0) mg/dL Influenza Type A RNA Negative (NEGATIVE) Influenza Type B RNA Negative (NEGATIVE) SARS-CoV-2 RNA (NIC) Negative (NEGATIVE) 01/03/21 01/03/21 01/03/21 Range/Units 16:57 16:57 16:57 WBC 13.2 H (5.0-10.0) 10^3/uL RBC 2.84 L (4.6-6.2) 10^6/uL Hgb 10.0 L (14.0-18.0) g/dL Hct 28.6 L (40.0-54.0) % MCV 100.7 H D (80-100) fL MCH 35.2 H (27.0-34.0) pg MCHC 35.0 (33.0-35.0) g/dL Plt Count 55 L (150-450) 10^3/uL Neut % (Auto) 81.6 H (42.2-75.2) % Lymph % (Auto) 9.9 L (20.5-50.1) % O[place] % (Auto) 8.1 H (2-8) % Eos % (Auto) 0.1 L (1.0-3.0) % Baso % (Auto) 0.3 (0.0-1.0) % Sodium 136 (136-145) mmol/L Potassium 3.0 L (3.5-5.1) mmol/L Chloride 92 L (98-107) mmol/L Carbon Dioxide 27 (21-32) mmol/L Anion Gap 20.0 H (7-13) mEq/L BUN 20 H (7-18) mg/dL Creatinine 1.19 (0.70-1.30) mg/dL Est Cr Clr Drug Dosing TNP Estimated GFR (MDRD) > 60 BUN/Creatinine Ratio 16.8 (No establ ref range) Glucose 135 H (70-99) mg/dL Calcium 9.1 (8.5-10.1) mg/dL Magnesium 1.1 L (1.8-2.4) mg/dL Total Bilirubin 12.7 H (0.2-1.0) mg/dL AST 109 H (15-37) U/L ALT 33 (16-63) U/L Alkaline Phosphatase 170 H (46-116) U/L Ammonia 102 H (11-32) umol/L Total Protein 9.2 H (6.4-8.2) g/dL Albumin 3.6 (3.4-5.0) g/dL Globulin 5.6 Albumin/Globulin Ratio 0.6 Amylase 25 (25-115) U/L Urine Color (YELLOW) Urine Appearance (CLEAR) Urine pH (5.0-9.0) Ur Specific Raymond (1.005-1.030) Urine Protein (NEGATIVE) Urine Glucose (UA) (NEGATIVE) Urine Ketones (NEGATIVE) Urine Occult Blood (NEGATIVE) Urine Nitrite (NEGATIVE) Urine Bilirubin (NEGATIVE) Urine Urobilinogen (0.2-1.0) mg/dL Ur Leukocyte Esterase (NEGATIVE) Urine RBC (0-5) /HPF Urine WBC (0-5/HPF) /HPF Ur Epithelial Cells (NOT SEEN) /HPF Urine Bacteria (0-FEW/HPF) /HPF Salicylates (2.8-20(Therapeutic)) mg/dL Urine Opiates Screen (NEGATIVE) Ur Oxycodone Screen (NEGATIVE) Urine Methadone Screen (NEGATIVE) Acetaminophen 0 L (10-30 (Therapeutic)) ug/mL Ur Barbiturates Screen (NEGATIVE) U Tricyclic Antidepress (NEGATIVE) Ur Phencyclidine Scrn (NEGATIVE) Ur Amphetamine Screen (NEGATIVE) U Methamphetamines Scrn (NEGATIVE) Urine MDMA Screen (NEGATIVE) U Benzodiazepines Scrn (NEGATIVE) Urine Cocaine Screen (NEGATIVE) U Marijuana (THC) Screen (NEGATIVE) Ethyl Alcohol < 3 (0) mg/dL Influenza Type A RNA (NEGATIVE) Influenza Type B RNA (NEGATIVE) SARS-CoV-2 RNA (NIC) (NEGATIVE) 01/03/21 Range/Units 16:57 WBC (5.0-10.0) 10^3/uL RBC (4.6-6.2) 10^6/uL Hgb (14.0-18.0) g/dL Hct (40.0-54.0) % MCV (80-100) fL MCH (27.0-34.0) pg MCHC (33.0-35.0) g/dL Plt Count (150-450) 10^3/uL Neut % (Auto) (42.2-75.2) % Lymph % (Auto) (20.5-50.1) % [place] % (Auto) (2-8) % Eos % (Auto) (1.0-3.0) % Baso % (Auto) (0.0-1.0) % Sodium (136-145) mmol/L Potassium (3.5-5.1) mmol/L Chloride (98-107) mmol/L Carbon Dioxide (21-32) mmol/L Anion Gap (7-13) mEq/L BUN (7-18) mg/dL Creatinine (0.70-1.30) mg/dL Est Cr Clr Drug Dosing Estimated GFR (MDRD) BUN/Creatinine Ratio (No establ ref range) Glucose (70-99) mg/dL Calcium (8.5-10.1) mg/dL Magnesium (1.8-2.4) mg/dL Total Bilirubin (0.2-1.0) mg/dL AST (15-37) U/L ALT (16-63) U/L Alkaline Phosphatase (46-116) U/L Ammonia (11-32) umol/L Total Protein (6.4-8.2) g/dL Albumin (3.4-5.0) g/dL Globulin Albumin/Globulin Ratio Amylase (25-115) U/L Urine Color (YELLOW) Urine Appearance (CLEAR) Urine pH (5.0-9.0) Ur Specific Raymond (1.005-1.030) Urine Protein (NEGATIVE) Urine Glucose (UA) (NEGATIVE) Urine Ketones (NEGATIVE) Urine Occult Blood (NEGATIVE) Urine Nitrite (NEGATIVE) Urine Bilirubin (NEGATIVE) Urine Urobilinogen (0.2-1.0) mg/dL Ur Leukocyte Esterase (NEGATIVE) Urine RBC (0-5) /HPF Urine WBC (0-5/HPF) /HPF Ur Epithelial Cells (NOT SEEN) /HPF Urine Bacteria (0-FEW/HPF) /HPF Salicylates < 2.8 L (2.8-20(Therapeutic)) mg/dL Urine Opiates Screen (NEGATIVE) Ur Oxycodone Screen (NEGATIVE) Urine Methadone Screen (NEGATIVE) Acetaminophen (10-30 (Therapeutic)) ug/mL Ur Barbiturates Screen (NEGATIVE) U Tricyclic Antidepress (NEGATIVE) Ur Phencyclidine Scrn (NEGATIVE) Ur Amphetamine Screen (NEGATIVE) U Methamphetamines Scrn (NEGATIVE) Urine MDMA Screen (NEGATIVE) U Benzodiazepines Scrn (NEGATIVE) Urine Cocaine Screen (NEGATIVE) U Marijuana (THC) Screen (NEGATIVE) Ethyl Alcohol (0) mg/dL Influenza Type A RNA (NEGATIVE) Influenza Type B RNA (NEGATIVE) SARS-CoV-2 RNA (NIC) (NEGATIVE) Result Diagrams: 01/03/21 16:57 01/03/21 16:57 - Problem List (1) Portal hypertension SNOMED Code(s): 34420205 ICD Code: K76.6 - PORTAL HYPERTENSION Status: Acute Current Visit: Yes (2) HTN (hypertension) SNOMED Code(s): 23578162 ICD Code: I10 - ESSENTIAL (PRIMARY) HYPERTENSION Status: Acute Current Visit: Yes (3) Thrombocytopenia SNOMED Code(s): 548795196 ICD Code: D69.6 - THROMBOCYTOPENIA, UNSPECIFIED Status: Acute Current Visit: Yes (4) Alcohol withdrawal syndrome SNOMED Code(s): 706012135 ICD Code: F10.239 - ALCOHOL DEPENDENCE WITH WITHDRAWAL, UNSPECIFIED Status: Acute Current Visit: No Qualifiers: Complication of substance-induced condition: with unspecified complication Qualified Code(s): F10.239 - Alcohol dependence with withdrawal, unspecified (5) Cirrhosis of liver SNOMED Code(s): 12906163 ICD Code: K74.60 - UNSPECIFIED CIRRHOSIS OF LIVER Status: Acute Current Visit: No Qualifiers: Hepatic cirrhosis type: alcoholic cirrhosis Ascites presence: with ascites Qualified Code(s): K70.31 - Alcoholic cirrhosis of liver with ascites (6) Hypokalemia SNOMED Code(s): 38549632 ICD Code: E87.6 - HYPOKALEMIA Status: Acute Current Visit: No (7) Hypomagnesemia SNOMED Code(s): 247858835 ICD Code: E83.42 - HYPOMAGNESEMIA Status: Acute Current Visit: No (8) Jaundice due to hepatitis SNOMED Code(s): 37936199 ICD Code: K75.9 - INFLAMMATORY LIVER DISEASE, UNSPECIFIED Status: Acute Current Visit: No Problem List Initiated/Reviewed/Updated: Yes Orders Last 24hrs: Active Orders 24 hr Category Date Time Status Admission Diagnosis [ADT] Urgent ADT 01/03/21 18:12 Ordered Admission Status [Patient Status] [ADT] Routine ADT 01/03/21 18:12 Active Antiembolic Devices [RC] PER UNIT ROUTINE Care 01/03/21 20:02 Ordered Oxygen Therapy [RC] PRN Care 01/03/21 19:38 Ordered Peripheral IV Care [RC] . DIRECTED Care 01/03/21 19:39 Ordered Up With Assistance [RC] ASDIRECTED Care 01/03/21 19:38 Ordered VTE/DVT Education [RC] PER UNIT ROUTINE Care 01/03/21 19:38 Ordered Vital Signs [RC] Q4H Care 01/03/21 19:38 Ordered Consistent Carbohydrate Diet [DIET] Diet 01/03/21 Breakfast Ordered BASIC METABOLIC PANEL,BMP [CHEM] AM Lab 01/04/21 05:11 Ordered BASIC METABOLIC PANEL,BMP [CHEM] AM Lab 01/05/21 05:11 Ordered BASIC METABOLIC PANEL,BMP [CHEM] AM Lab 01/06/21 05:11 Ordered BASIC METABOLIC PANEL,BMP [CHEM] AM Lab 01/07/21 05:11 Ordered CBC WITH AUTO DIFF [HEME] AM Lab 01/04/21 05:11 Ordered CBC WITH AUTO DIFF [HEME] AM Lab 01/05/21 05:11 Ordered CBC WITH AUTO DIFF [HEME] AM Lab 01/06/21 05:11 Ordered CBC WITH AUTO DIFF [HEME] AM Lab 01/07/21 05:11 Ordered CULTURE URINE [RM] Stat Lab 01/03/21 16:43 Received HEPATIC FUNCTION PANEL,[facility] [CHEM] AM Lab 01/04/21 05:11 Ordered HEPATIC FUNCTION PANEL,[facility] [CHEM] AM Lab 01/05/21 05:11 Ordered HEPATIC FUNCTION PANEL,[facility] [CHEM] AM Lab 01/06/21 05:11 Ordered MAGNESIUM [CHEM] AM Lab 01/04/21 05:11 Ordered MAGNESIUM [CHEM] AM Lab 01/05/21 05:11 Ordered MAGNESIUM [CHEM] AM Lab 01/06/21 05:11 Ordered PHOSPHORUS [CHEM] AM Lab 01/04/21 05:11 Ordered PHOSPHORUS [CHEM] AM Lab 01/05/21 05:11 Ordered PHOSPHORUS [CHEM] AM Lab 01/06/21 05:11 Ordered Folic Acid Med 01/04/21 09:00 Active 1 mg PO DAILY LORazepam [Ativan] Med 01/03/21 19:37 Ordered See Protocol IVPUSH TITRATE PRN LORazepam [Ativan] Med 01/03/21 19:37 Ordered See Protocol PO TITRATE PRN Lactulose [Cephulac] Med 01/03/21 21:00 Ordered 20 gm PO TID Metoprolol Tartrate [Lopressor] Med 01/03/21 21:00 Active 25 mg PO BID Multivitamins/Minerals [Vitamins and Minerals] Med 01/04/21 08:00 Ordered 1 tab PO WITHBREAKFAST Ondansetron [Zofran] Med 01/03/21 19:38 Ordered 4 mg IVPUSH Q4H PRN Potassium Chloride [Klor-Con 10] Med 01/03/21 20:00 Ordered 40 meq PO Q6H Sodium Chloride 0.9% [Saline Flush] Med 01/03/21 19:38 Ordered 10 ml FLUSH ASDIRECTED PRN Sodium Chloride 0.9% with KCl 20 mEq @ 100 mL/Hr (1000 Med 01/03/21 20:00 Ordered mL) NS + KCl 20mEq/L [Normal Saline with 20 mEq KCl] 1,000 ml IV ASDIRECTED Temazepam [Restoril] Med 01/03/21 19:38 Ordered 15 mg PO BEDTIME PRN Thiamine [Vitamin B-1] Med 01/04/21 09:00 Active 100 mg PO DAILY amLODIPine [Norvasc] Med 01/04/21 09:00 Active 5 mg PO DAILY Peripheral IV Insertion Adult [OM.PC] Routine Oth 01/03/21 19:38 Ordered SCD [Sequential Compression Device] [OM.PC] Routine Oth 01/03/21 20:02 Ordered Resuscitation Status Routine Resus Stat 01/03/21 19:38 Ordered Medication Orders Amlodipine Besylate (Amlodipine 5 Mg Tab) 5 mg PO DAILY F[facility] Folic Acid (Folic Acid 1 Mg Tab) 1 mg PO DAILY [facility] Potassium Chloride/Sodium Chloride (Normal Saline With 20 Meq Kcl) 1,000 mls @ 100 mls/hr IV ASDIRECTED [facility] Lactulose (Lactulose Soln 10 Gm/15 Ml 30 Ml Ud Cup) 20 gm PO TID [facility] Lorazepam (Lorazepam 2 Mg/Ml Sdv) 0 mg IVPUSH TITRATE PRN; Protocol PRN Reason: ciwa protocol Lorazepam (Lorazepam 0.5 Mg Tab) 0 mg PO TITRATE PRN; Protocol PRN Reason: ciwa protocol Metoprolol Tartrate (Metoprolol Tartrate 25 Mg Tab) 25 mg PO BID [facility], [facility]–1983 Multivitamins/Minerals (Multivitamins, Therapeutic With Minerals Tab) 1 tab PO WITHBREAKFAST [facility] Ondansetron HCl (Ondansetron 4 Mg/2 Ml Sdv) 4 mg IVPUSH Q4H PRN PRN Reason: Nausea/Vomiting Potassium Chloride (Potassium Chloride 10 Meq Tab.Er) 40 meq PO Q6H [facility] Stop: 01/04/21 02:01 Sodium Chloride (Sodium Chloride 0.9% 10 Ml Syringe) 10 ml FLUSH ASDIRECTED PRN PRN Reason: Keep Vein Open Temazepam (Temazepam 15 Mg Cap) 15 mg PO BEDTIME PRN PRN Reason: Sleep Thiamine HCl (Thiamine 100 Mg Tab) 100 mg PO DAILY FARHAT Assessment/Plan Comment:: alcohol addiction consult [place] give thiamine, folate, multivitamin alcohol withdrawal last alcoholic drink: 01/01 symptoms : nausea, tremor treat with ciwa protocol alcoholic liver cirrhosis portal htn high ammonia thrombocytopenia due to portal htn alcoholic hepatitis will follow blood counts start lactulose follow electrolytes replace hypokalemia, hypomagnesemia leukocytosis likely due to n/v possible uti Urine cx: pending empirical tx with ceftriaxone htn treat with Norvasc, metoprolol diet controlled dm follow fasting am BSs diabetic diet dvt prophylaxis SCDs with thrombocytopenia
[2021-01-03] MEDS: Potassium Chloride 10 MEQ Tab.ER PO SCH (20:33)
[2021-01-03] MEDS: Lactulose Soln 10 GM/15 ML 30 ML UD Cup PO SCH (20:33)
[2021-01-03] MEDS: Metoprolol Tartrate 25 MG Tab PO SCH (20:34)
[2021-01-03] MEDS ORDERED: Spironolactone 25 MG Tab PO SCH (21:00)
[2021-01-03] MEDS: NS + KCl 20mEq/L 1,000 ML IV SCH (21:06)
[2021-01-03] MEDS ORDERED: Diphtheria,Pertussis(Acell),Tetanus Vaccine 0.5 ML Syringe IM ONE (23:20)
[2021-01-04] MEDS: Potassium Chloride 10 MEQ Tab.ER PO SCH (01:57)
[2021-01-04 06:57] LABS: ANION GAP 13.8 mEq/L (7-13); CHLORIDE,CL 99 mmol/L (98-107); SODIUM,NA 137 mmol/L (136-145)
[2021-01-04] MEDS: NS + KCl 20mEq/L 1,000 ML IV SCH (07:54)
[2021-01-04] MEDS: Lactulose Soln 10 GM/15 ML 30 ML UD Cup PO SCH ×3 (08:00→21:04)
[2021-01-04] MEDS ORDERED: Multivitamins, Therapeutic with Minerals Tab PO SCH (08:00)
[2021-01-04] MEDS: Metoprolol Tartrate 25 MG Tab PO SCH ×2 (08:01→21:03)
[2021-01-04] MEDS ORDERED: Thiamine 100 MG Tab PO SCH (09:00)
[2021-01-04] MEDS ORDERED: Enoxaparin 40 MG/0.4 ML Syringe SUBCUT SCH (09:00)
[2021-01-04] MEDS ORDERED: amLODIPine 5 MG Tab PO SCH (09:00)
[2021-01-04] MEDS ORDERED: Folic Acid 1 MG Tab PO SCH ×2 (09:00)
--- NOTE | 2021-01-04 09:36 | PCM.PN ---
- General Info Date of Service: 01/04/21 Subjective Update: feeling well less tremors no associated nausea no fever Functional Status: Reports: Tolerating Diet - Review of Systems General: Reports: Weakness. Denies: Fever Pulmonary: Denies: Shortness of Breath Cardiovascular: Denies: Chest Pain, Edema Gastrointestinal: Denies: Abdominal Pain Genitourinary: Denies: Dysuria - Patient Data Vitals - Most Recent: Last Vital Signs Temp 99.6 F 01/04/21 07:17 Pulse 64 01/04/21 08:01 Resp 18 01/04/21 07:17 BP 139/71 01/04/21 08:02 Pulse Ox 100 01/04/21 07:17 Weight - Most Recent: 178 lb 3.2 oz Lab Results Last 24 Hours: Laboratory Results - last 24 hr 01/03/21 01/03/21 01/03/21 Range/Units 16:43 16:43 16:53 WBC (5.0-10.0) 10^3/uL RBC (4.6-6.2) 10^6/uL Hgb (14.0-18.0) g/dL Hct (40.0-54.0) % MCV (80-100) fL MCH (27.0-34.0) pg MCHC (33.0-35.0) g/dL Plt Count (150-450) 10^3/uL Neut % (Auto) (42.2-75.2) % Lymph % (Auto) (20.5-50.1) % Owen % (Auto) (2-8) % Eos % (Auto) (1.0-3.0) % Baso % (Auto) (0.0-1.0) % Sodium (136-145) mmol/L Potassium (3.5-5.1) mmol/L Chloride (98-107) mmol/L Carbon Dioxide (21-32) mmol/L Anion Gap (7-13) mEq/L BUN (7-18) mg/dL Creatinine (0.70-1.30) mg/dL Est Cr Clr Drug Dosing Estimated GFR (MDRD) BUN/Creatinine Ratio (No establ ref range) Glucose (70-99) mg/dL Calcium (8.5-10.1) mg/dL Phosphorus (2.6-4.7) mg/dL Magnesium (1.8-2.4) mg/dL Total Bilirubin (0.2-1.0) mg/dL Direct Bilirubin (0.0-0.2) mg/dL Indirect Bilirubin AST (15-37) U/L ALT (16-63) U/L Alkaline Phosphatase (46-116) U/L Ammonia (11-32) umol/L Total Protein (6.4-8.2) g/dL Albumin (3.4-5.0) g/dL Globulin Albumin/Globulin Ratio Amylase (25-115) U/L Urine Color Melissa (YELLOW) Urine Appearance Cloudy (CLEAR) Urine pH 7.0 (5.0-9.0) Ur Specific [place] 1.020 (1.005-1.030) Urine Protein 30 H (NEGATIVE) Urine Glucose (UA) Negative (NEGATIVE) Urine Ketones 40 H (NEGATIVE) Urine Occult Blood Negative (NEGATIVE) Urine Nitrite Positive H (NEGATIVE) Urine Bilirubin Moderate H (NEGATIVE) Urine Urobilinogen >=8.0 H (0.2-1.0) mg/dL Ur Leukocyte Esterase Small H (NEGATIVE) Urine RBC Not seen (0-5) /HPF Urine WBC 30-40 H (0-5/HPF) /HPF Ur Epithelial Cells Rare (NOT SEEN) /HPF Urine Bacteria Moderate H (0-FEW/HPF) /HPF Salicylates (2.8-20(Therapeutic)) mg/dL Urine Opiates Screen Negative (NEGATIVE) Ur Oxycodone Screen Negative (NEGATIVE) Urine Methadone Screen Negative (NEGATIVE) Acetaminophen (10-30 (Therapeutic)) ug/mL Ur Barbiturates Screen Negative (NEGATIVE) U Tricyclic Antidepress Negative (NEGATIVE) Ur Phencyclidine Scrn Negative (NEGATIVE) Ur Amphetamine Screen Negative (NEGATIVE) U Methamphetamines Scrn Negative (NEGATIVE) Urine MDMA Screen Negative (NEGATIVE) U Benzodiazepines Scrn Negative (NEGATIVE) Urine Cocaine Screen Negative (NEGATIVE) U Marijuana (THC) Screen Negative (NEGATIVE) Ethyl Alcohol (0) mg/dL Influenza Type A RNA Negative (NEGATIVE) Influenza Type B RNA Negative (NEGATIVE) SARS-CoV-2 RNA (NIC) Negative (NEGATIVE) 01/03/21 01/03/21 01/03/21 Range/Units 16:57 16:57 16:57 WBC 13.2 H (5.0-10.0) 10^3/uL RBC 2.84 L (4.6-6.2) 10^6/uL Hgb 10.0 L (14.0-18.0) g/dL Hct 28.6 L (40.0-54.0) % MCV 100.7 H D (80-100) fL MCH 35.2 H (27.0-34.0) pg MCHC 35.0 (33.0-35.0) g/dL Plt Count 55 L (150-450) 10^3/uL Neut % (Auto) 81.6 H (42.2-75.2) % Lymph % (Auto) 9.9 L (20.5-50.1) % Owen % (Auto) 8.1 H (2-8) % Eos % (Auto) 0.1 L (1.0-3.0) % Baso % (Auto) 0.3 (0.0-1.0) % Sodium 136 (136-145) mmol/L Potassium 3.0 L (3.5-5.1) mmol/L Chloride 92 L (98-107) mmol/L Carbon Dioxide 27 (21-32) mmol/L Anion Gap 20.0 H (7-13) mEq/L BUN 20 H (7-18) mg/dL Creatinine 1.19 (0.70-1.30) mg/dL Est Cr Clr Drug Dosing TNP Estimated GFR (MDRD) > 60 BUN/Creatinine Ratio 16.8 (No establ ref range) Glucose 135 H (70-99) mg/dL Calcium 9.1 (8.5-10.1) mg/dL Phosphorus (2.6-4.7) mg/dL Magnesium 1.1 L (1.8-2.4) mg/dL Total Bilirubin 12.7 H (0.2-1.0) mg/dL Direct Bilirubin (0.0-0.2) mg/dL Indirect Bilirubin AST 109 H (15-37) U/L ALT 33 (16-63) U/L Alkaline Phosphatase 170 H (46-116) U/L Ammonia 102 H (11-32) umol/L Total Protein 9.2 H (6.4-8.2) g/dL Albumin 3.6 (3.4-5.0) g/dL Globulin 5.6 Albumin/Globulin Ratio 0.6 Amylase 25 (25-115) U/L Urine Color (YELLOW) Urine Appearance (CLEAR) Urine pH (5.0-9.0) Ur Specific [place] (1.005-1.030) Urine Protein (NEGATIVE) Urine Glucose (UA) (NEGATIVE) Urine Ketones (NEGATIVE) Urine Occult Blood (NEGATIVE) Urine Nitrite (NEGATIVE) Urine Bilirubin (NEGATIVE) Urine Urobilinogen (0.2-1.0) mg/dL Ur Leukocyte Esterase (NEGATIVE) Urine RBC (0-5) /HPF Urine WBC (0-5/HPF) /HPF Ur Epithelial Cells (NOT SEEN) /HPF Urine Bacteria (0-FEW/HPF) /HPF Salicylates (2.8-20(Therapeutic)) mg/dL Urine Opiates Screen (NEGATIVE) Ur Oxycodone Screen (NEGATIVE) Urine Methadone Screen (NEGATIVE) Acetaminophen 0 L (10-30 (Therapeutic)) ug/mL Ur Barbiturates Screen (NEGATIVE) U Tricyclic Antidepress (NEGATIVE) Ur Phencyclidine Scrn (NEGATIVE) Ur Amphetamine Screen (NEGATIVE) U Methamphetamines Scrn (NEGATIVE) Urine MDMA Screen (NEGATIVE) U Benzodiazepines Scrn (NEGATIVE) Urine Cocaine Screen (NEGATIVE) U Marijuana (THC) Screen (NEGATIVE) Ethyl Alcohol < 3 (0) mg/dL Influenza Type A RNA (NEGATIVE) Influenza Type B RNA (NEGATIVE) SARS-CoV-2 RNA (NIC) (NEGATIVE) 01/03/21 01/04/21 01/04/21 Range/Units 16:57 05:40 05:40 WBC 11.0 H (5.0-10.0) 10^3/uL RBC 2.53 L (4.6-6.2) 10^6/uL Hgb 9.0 L (14.0-18.0) g/dL Hct 26.1 L (40.0-54.0) % MCV 103.2 H (80-100) fL MCH 35.6 H (27.0-34.0) pg MCHC 34.5 (33.0-35.0) g/dL Plt Count 46 L* (150-450) 10^3/uL Neut % (Auto) 73.5 (42.2-75.2) % Lymph % (Auto) 17.0 L (20.5-50.1) % Owen % (Auto) 8.5 H (2-8) % Eos % (Auto) 0.7 L (1.0-3.0) % Baso % (Auto) 0.3 (0.0-1.0) % Sodium 137 (136-145) mmol/L Potassium 3.8 (3.5-5.1) mmol/L Chloride 99 (98-107) mmol/L Carbon Dioxide 28 (21-32) mmol/L Anion Gap 13.8 H (7-13) mEq/L BUN 18 (7-18) mg/dL Creatinine 0.95 (0.70-1.30) mg/dL Est Cr Clr Drug Dosing 110.00 Estimated GFR (MDRD) > 60 BUN/Creatinine Ratio (No establ ref range) Glucose 77 (70-99) mg/dL Calcium 8.2 L (8.5-10.1) mg/dL Phosphorus 2.3 L (2.6-4.7) mg/dL Magnesium 1.8 (1.8-2.4) mg/dL Total Bilirubin 11.5 H (0.2-1.0) mg/dL Direct Bilirubin 5.8 H (0.0-0.2) mg/dL Indirect Bilirubin 5.7 AST 76 H (15-37) U/L ALT 23 (16-63) U/L Alkaline Phosphatase 128 H (46-116) U/L Ammonia (11-32) umol/L Total Protein 7.6 (6.4-8.2) g/dL Albumin 2.9 L (3.4-5.0) g/dL Globulin 4.7 Albumin/Globulin Ratio 0.62 Amylase (25-115) U/L Urine Color (YELLOW) Urine Appearance (CLEAR) Urine pH (5.0-9.0) Ur Specific [place] (1.005-1.030) Urine Protein (NEGATIVE) Urine Glucose (UA) (NEGATIVE) Urine Ketones (NEGATIVE) Urine Occult Blood (NEGATIVE) Urine Nitrite (NEGATIVE) Urine Bilirubin (NEGATIVE) Urine Urobilinogen (0.2-1.0) mg/dL Ur Leukocyte Esterase (NEGATIVE) Urine RBC (0-5) /HPF Urine WBC (0-5/HPF) /HPF Ur Epithelial Cells (NOT SEEN) /HPF Urine Bacteria (0-FEW/HPF) /HPF Salicylates < 2.8 L (2.8-20(Therapeutic)) mg/dL Urine Opiates Screen (NEGATIVE) Ur Oxycodone Screen (NEGATIVE) Urine Methadone Screen (NEGATIVE) Acetaminophen (10-30 (Therapeutic)) ug/mL Ur Barbiturates Screen (NEGATIVE) U Tricyclic Antidepress (NEGATIVE) Ur Phencyclidine Scrn (NEGATIVE) Ur Amphetamine Screen (NEGATIVE) U Methamphetamines Scrn (NEGATIVE) Urine MDMA Screen (NEGATIVE) U Benzodiazepines Scrn (NEGATIVE) Urine Cocaine Screen (NEGATIVE) U Marijuana (THC) Screen (NEGATIVE) Ethyl Alcohol (0) mg/dL Influenza Type A RNA (NEGATIVE) Influenza Type B RNA (NEGATIVE) SARS-CoV-2 RNA (NIC) (NEGATIVE) Med Orders - Current: Current Medications Amlodipine Besylate (Amlodipine 5 Mg Tab) 5 mg PO DAILY [facility] Last Admin: 01/04/21 08:02 Dose: 5 mg Documented by: Folic Acid (Folic Acid 1 Mg Tab) 1 mg PO DAILY [facility] Last Admin: 01/04/21 08:02 Dose: 1 mg Documented by: Potassium Chloride/Sodium Chloride (Normal Saline With 20 Meq Kcl) 1,000 mls @ 100 mls/hr IV ASDIRECTED [facility] Last Admin: 01/04/21 07:54 Dose: 100 mls/hr Documented by: Ceftriaxone Sodium 1 gm/ (Sodium Chloride) 50 mls @ 100 mls/hr IV Q24H [facility] Influenza Virus Vaccine (Pharmacy To Dose - Influenza Vaccine) 1 each IM DAILY [facility] Last Admin: 01/04/21 08:03 Dose: Not Given Documented by: Lactulose (Lactulose Soln 10 Gm/15 Ml 30 Ml Ud Cup) 20 gm PO TID [facility] Last Admin: 01/04/21 08:00 Dose: 20 gm Documented by: Lorazepam (Lorazepam 2 Mg/Ml Sdv) 0 mg IVPUSH TITRATE PRN; Protocol PRN Reason: [facility] protocol Lorazepam (Lorazepam 0.5 Mg Tab) 0 mg PO TITRATE PRN; Protocol PRN Reason: [facility] protocol Last Admin: 01/03/21 21:06 Dose: 1 mg Documented by: Metoprolol Tartrate (Metoprolol Tartrate 25 Mg Tab) 25 mg PO BID [facility] Last Admin: 01/04/21 08:01 Dose: 25 mg Documented by: Multivitamins/Minerals (Multivitamins, Therapeutic With Minerals Tab) 1 tab PO WITHBREAKFAST [facility] Last Admin: 01/04/21 07:55 Dose: 1 tab Documented by: Ondansetron HCl (Ondansetron 4 Mg/2 Ml Sdv) 4 mg IVPUSH Q4H PRN PRN Reason: Nausea/Vomiting Last Admin: 01/03/21 20:33 Dose: 4 mg Documented by: Sodium Chloride (Sodium Chloride 0.9% 10 Ml Syringe) 10 ml FLUSH ASDIRECTED PRN PRN Reason: Keep Vein Open Temazepam (Temazepam 15 Mg Cap) 15 mg PO BEDTIME PRN PRN Reason: Sleep Last Admin: 01/03/21 20:34 Dose: 15 mg Documented by: Thiamine HCl (Thiamine 100 Mg Tab) 100 mg PO DAILY [facility] Last Admin: 01/04/21 08:02 Dose: 100 mg Documented by: Discontinued Medications Diphtheria/Tetanus/Acell Pertussis (Diphtheria,Pertussis(Acell),Tetanus Vaccine 0.5 Ml Syringe) 0.5 ml IM .ONCE ONE Stop: 01/03/21 23:21 Enoxaparin Sodium (Enoxaparin 40 Mg/0.4 Ml Syringe) 40 mg SUBCUT DAILY [facility] Multivitamins/Minerals 10 ml/Folic Acid 1 mg/ Thiamine HCl 100 mg/ Lactated Ringer's 1,011.2 mls @ 999 mls/hr IV ONETIME ONE Stop: 01/03/21 17:49 Last Admin: 01/03/21 16:58 Dose: 999 mls/hr Documented by: Magnesium Sulfate 2 gm/ Premix 50 mls @ 25 mls/hr IV ONETIME ONE Stop: 01/03/21 19:57 Last Admin: 01/03/21 18:55 Dose: 25 mls/hr Documented by: Ondansetron HCl (Ondansetron 4 Mg/2 Ml Sdv) 4 mg IVPUSH ONETIME ONE Stop: 01/03/21 16:50 Last Admin: 01/03/21 17:00 Dose: 4 mg Documented by: Potassium Chloride (Potassium Chloride 10 Meq Tab.Er) 40 meq PO Q6H [facility] Stop: 01/04/21 02:01 Last Admin: 01/04/21 01:57 Dose: 40 meq Documented by: Spironolactone (Spironolactone 25 Mg Tab) 25 mg PO BID [facility] - Exam General: Alert, Oriented Neck: Supple Lungs: Clear to Auscultation, Normal Respiratory Effort Cardiovascular: Regular Rate, Regular Rhythm GI/Abdominal Exam: Normal Bowel Sounds, Soft, Non-Tender, Other (no ascites) Extremities: No Pedal Edema - Patient Data Lab Results Last 24 hrs: Laboratory Results - last 24 hr 01/03/21 01/03/21 01/03/21 Range/Units 16:43 16:43 16:53 WBC (5.0-10.0) 10^3/uL RBC (4.6-6.2) 10^6/uL Hgb (14.0-18.0) g/dL Hct (40.0-54.0) % MCV (80-100) fL MCH (27.0-34.0) pg MCHC (33.0-35.0) g/dL Plt Count (150-450) 10^3/uL Neut % (Auto) (42.2-75.2) % Lymph % (Auto) (20.5-50.1) % Owen % (Auto) (2-8) % Eos % (Auto) (1.0-3.0) % Baso % (Auto) (0.0-1.0) % Sodium (136-145) mmol/L Potassium (3.5-5.1) mmol/L Chloride (98-107) mmol/L Carbon Dioxide (21-32) mmol/L Anion Gap (7-13) mEq/L BUN (7-18) mg/dL Creatinine (0.70-1.30) mg/dL Est Cr Clr Drug Dosing Estimated GFR (MDRD) BUN/Creatinine Ratio (No establ ref range) Glucose (70-99) mg/dL Calcium (8.5-10.1) mg/dL Phosphorus (2.6-4.7) mg/dL Magnesium (1.8-2.4) mg/dL Total Bilirubin (0.2-1.0) mg/dL Direct Bilirubin (0.0-0.2) mg/dL Indirect Bilirubin AST (15-37) U/L ALT (16-63) U/L Alkaline Phosphatase (46-116) U/L Ammonia (11-32) umol/L Total Protein (6.4-8.2) g/dL Albumin (3.4-5.0) g/dL Globulin Albumin/Globulin Ratio Amylase (25-115) U/L Urine Color Melissa (YELLOW) Urine Appearance Cloudy (CLEAR) Urine pH 7.0 (5.0-9.0) Ur Specific [place] 1.020 (1.005-1.030) Urine Protein 30 H (NEGATIVE) Urine Glucose (UA) Negative (NEGATIVE) Urine Ketones 40 H (NEGATIVE) Urine Occult Blood Negative (NEGATIVE) Urine Nitrite Positive H (NEGATIVE) Urine Bilirubin Moderate H (NEGATIVE) Urine Urobilinogen >=8.0 H (0.2-1.0) mg/dL Ur Leukocyte Esterase Small H (NEGATIVE) Urine RBC Not seen (0-5) /HPF Urine WBC 30-40 H (0-5/HPF) /HPF Ur Epithelial Cells Rare (NOT SEEN) /HPF Urine Bacteria Moderate H (0-FEW/HPF) /HPF Salicylates (2.8-20(Therapeutic)) mg/dL Urine Opiates Screen Negative (NEGATIVE) Ur Oxycodone Screen Negative (NEGATIVE) Urine Methadone Screen Negative (NEGATIVE) Acetaminophen (10-30 (Therapeutic)) ug/mL Ur Barbiturates Screen Negative (NEGATIVE) U Tricyclic Antidepress Negative (NEGATIVE) Ur Phencyclidine Scrn Negative (NEGATIVE) Ur Amphetamine Screen Negative (NEGATIVE) U Methamphetamines Scrn Negative (NEGATIVE) Urine MDMA Screen Negative (NEGATIVE) U Benzodiazepines Scrn Negative (NEGATIVE) Urine Cocaine Screen Negative (NEGATIVE) U Marijuana (THC) Screen Negative (NEGATIVE) Ethyl Alcohol (0) mg/dL Influenza Type A RNA Negative (NEGATIVE) Influenza Type B RNA Negative (NEGATIVE) SARS-CoV-2 RNA (NIC) Negative (NEGATIVE) 01/03/21 01/03/21 01/03/21 Range/Units 16:57 16:57 16:57 WBC 13.2 H (5.0-10.0) 10^3/uL RBC 2.84 L (4.6-6.2) 10^6/uL Hgb 10.0 L (14.0-18.0) g/dL Hct 28.6 L (40.0-54.0) % MCV 100.7 H D (80-100) fL MCH 35.2 H (27.0-34.0) pg MCHC 35.0 (33.0-35.0) g/dL Plt Count 55 L (150-450) 10^3/uL Neut % (Auto) 81.6 H (42.2-75.2) % Lymph % (Auto) 9.9 L (20.5-50.1) % Owen % (Auto) 8.1 H (2-8) % Eos % (Auto) 0.1 L (1.0-3.0) % Baso % (Auto) 0.3 (0.0-1.0) % Sodium 136 (136-145) mmol/L Potassium 3.0 L (3.5-5.1) mmol/L Chloride 92 L (98-107) mmol/L Carbon Dioxide 27 (21-32) mmol/L Anion Gap 20.0 H (7-13) mEq/L BUN 20 H (7-18) mg/dL Creatinine 1.19 (0.70-1.30) mg/dL Est Cr Clr Drug Dosing TNP Estimated GFR (MDRD) > 60 BUN/Creatinine Ratio 16.8 (No establ ref range) Glucose 135 H (70-99) mg/dL Calcium 9.1 (8.5-10.1) mg/dL Phosphorus (2.6-4.7) mg/dL Magnesium 1.1 L (1.8-2.4) mg/dL Total Bilirubin 12.7 H (0.2-1.0) mg/dL Direct Bilirubin (0.0-0.2) mg/dL Indirect Bilirubin AST 109 H (15-37) U/L ALT 33 (16-63) U/L Alkaline Phosphatase 170 H (46-116) U/L Ammonia 102 H (11-32) umol/L Total Protein 9.2 H (6.4-8.2) g/dL Albumin 3.6 (3.4-5.0) g/dL Globulin 5.6 Albumin/Globulin Ratio 0.6 Amylase 25 (25-115) U/L Urine Color (YELLOW) Urine Appearance (CLEAR) Urine pH (5.0-9.0) Ur Specific [place] (1.005-1.030) Urine Protein (NEGATIVE) Urine Glucose (UA) (NEGATIVE) Urine Ketones (NEGATIVE) Urine Occult Blood (NEGATIVE) Urine Nitrite (NEGATIVE) Urine Bilirubin (NEGATIVE) Urine Urobilinogen (0.2-1.0) mg/dL Ur Leukocyte Esterase (NEGATIVE) Urine RBC (0-5) /HPF Urine WBC (0-5/HPF) /HPF Ur Epithelial Cells (NOT SEEN) /HPF Urine Bacteria (0-FEW/HPF) /HPF Salicylates (2.8-20(Therapeutic)) mg/dL Urine Opiates Screen (NEGATIVE) Ur Oxycodone Screen (NEGATIVE) Urine Methadone Screen (NEGATIVE) Acetaminophen 0 L (10-30 (Therapeutic)) ug/mL Ur Barbiturates Screen (NEGATIVE) U Tricyclic Antidepress (NEGATIVE) Ur Phencyclidine Scrn (NEGATIVE) Ur Amphetamine Screen (NEGATIVE) U Methamphetamines Scrn (NEGATIVE) Urine MDMA Screen (NEGATIVE) U Benzodiazepines Scrn (NEGATIVE) Urine Cocaine Screen (NEGATIVE) U Marijuana (THC) Screen (NEGATIVE) Ethyl Alcohol < 3 (0) mg/dL Influenza Type A RNA (NEGATIVE) Influenza Type B RNA (NEGATIVE) SARS-CoV-2 RNA (NIC) (NEGATIVE) 01/03/21 01/04/21 01/04/21 Range/Units 16:57 05:40 05:40 WBC 11.0 H (5.0-10.0) 10^3/uL RBC 2.53 L (4.6-6.2) 10^6/uL Hgb 9.0 L (14.0-18.0) g/dL Hct 26.1 L (40.0-54.0) % MCV 103.2 H (80-100) fL MCH 35.6 H (27.0-34.0) pg MCHC 34.5 (33.0-35.0) g/dL Plt Count 46 L* (150-450) 10^3/uL Neut % (Auto) 73.5 (42.2-75.2) % Lymph % (Auto) 17.0 L (20.5-50.1) % Owen % (Auto) 8.5 H (2-8) % Eos % (Auto) 0.7 L (1.0-3.0) % Baso % (Auto) 0.3 (0.0-1.0) % Sodium 137 (136-145) mmol/L Potassium 3.8 (3.5-5.1) mmol/L Chloride 99 (98-107) mmol/L Carbon Dioxide 28 (21-32) mmol/L Anion Gap 13.8 H (7-13) mEq/L BUN 18 (7-18) mg/dL Creatinine 0.95 (0.70-1.30) mg/dL Est Cr Clr Drug Dosing 110.00 Estimated GFR (MDRD) > 60 BUN/Creatinine Ratio (No establ ref range) Glucose 77 (70-99) mg/dL Calcium 8.2 L (8.5-10.1) mg/dL Phosphorus 2.3 L (2.6-4.7) mg/dL Magnesium 1.8 (1.8-2.4) mg/dL Total Bilirubin 11.5 H (0.2-1.0) mg/dL Direct Bilirubin 5.8 H (0.0-0.2) mg/dL Indirect Bilirubin 5.7 AST 76 H (15-37) U/L ALT 23 (16-63) U/L Alkaline Phosphatase 128 H (46-116) U/L Ammonia (11-32) umol/L Total Protein 7.6 (6.4-8.2) g/dL Albumin 2.9 L (3.4-5.0) g/dL Globulin 4.7 Albumin/Globulin Ratio 0.62 Amylase (25-115) U/L Urine Color (YELLOW) Urine Appearance (CLEAR) Urine pH (5.0-9.0) Ur Specific [place] (1.005-1.030) Urine Protein (NEGATIVE) Urine Glucose (UA) (NEGATIVE) Urine Ketones (NEGATIVE) Urine Occult Blood (NEGATIVE) Urine Nitrite (NEGATIVE) Urine Bilirubin (NEGATIVE) Urine Urobilinogen (0.2-1.0) mg/dL Ur Leukocyte Esterase (NEGATIVE) Urine RBC (0-5) /HPF Urine WBC (0-5/HPF) /HPF Ur Epithelial Cells (NOT SEEN) /HPF Urine Bacteria (0-FEW/HPF) /HPF Salicylates < 2.8 L (2.8-20(Therapeutic)) mg/dL Urine Opiates Screen (NEGATIVE) Ur Oxycodone Screen (NEGATIVE) Urine Methadone Screen (NEGATIVE) Acetaminophen (10-30 (Therapeutic)) ug/mL Ur Barbiturates Screen (NEGATIVE) U Tricyclic Antidepress (NEGATIVE) Ur Phencyclidine Scrn (NEGATIVE) Ur Amphetamine Screen (NEGATIVE) U Methamphetamines Scrn (NEGATIVE) Urine MDMA Screen (NEGATIVE) U Benzodiazepines Scrn (NEGATIVE) Urine Cocaine Screen (NEGATIVE) U Marijuana (THC) Screen (NEGATIVE) Ethyl Alcohol (0) mg/dL Influenza Type A RNA (NEGATIVE) Influenza Type B RNA (NEGATIVE) SARS-CoV-2 RNA (NIC) (NEGATIVE) Result Diagrams: 01/04/21 05:40 01/04/21 05:40 Sepsis Event Note - Evaluation Sepsis Screening Result: No Definite Risk - Focused Exam Vital Signs: Vital Signs Temp Pulse Pulse Resp BP BP Pulse Ox 01/04/21 08:02 139/71 01/04/21 08:01 64 139/71 01/04/21 07:17 99.6 F 64 18 139/71 100 01/04/21 03:00 98.7 F 72 18 125/71 97 01/03/21 23:38 98.7 F 85 18 135/71 97 - Problem List & Annotations (1) Portal hypertension SNOMED Code(s): 99567100 Code(s): K76.6 - PORTAL HYPERTENSION Status: Acute Current Visit: Yes (2) HTN (hypertension) SNOMED Code(s): 61005460 Code(s): I10 - ESSENTIAL (PRIMARY) HYPERTENSION Status: Acute Current Visit: Yes (3) Thrombocytopenia SNOMED Code(s): 537080530 Code(s): D69.6 - THROMBOCYTOPENIA, UNSPECIFIED Status: Acute Current Visit: Yes (4) Alcohol withdrawal syndrome SNOMED Code(s): 446149503 Code(s): F10.239 - ALCOHOL DEPENDENCE WITH WITHDRAWAL, UNSPECIFIED Status: Acute Current Visit: No Qualifiers: Complication of substance-induced condition: with unspecified complication Qualified Code(s): F10.239 - Alcohol dependence with withdrawal, unspecified (5) Cirrhosis of liver SNOMED Code(s): 47823774 Code(s): K74.60 - UNSPECIFIED CIRRHOSIS OF LIVER Status: Acute Current Visit: No Qualifiers: Hepatic cirrhosis type: alcoholic cirrhosis Ascites presence: with ascites Qualified Code(s): K70.31 - Alcoholic cirrhosis of liver with ascites (6) Hypokalemia SNOMED Code(s): 75598009 Code(s): E87.6 - HYPOKALEMIA Status: Acute Current Visit: No (7) Hypomagnesemia SNOMED Code(s): 540897071 Code(s): E83.42 - HYPOMAGNESEMIA Status: Acute Current Visit: No (8) Jaundice due to hepatitis SNOMED Code(s): 67202360 Code(s): K75.9 - INFLAMMATORY LIVER DISEASE, UNSPECIFIED Status: Acute Current Visit: No - Problem List Review Problem List Initiated/Reviewed/Updated: Yes - My Orders Last 24 Hours: My Active Orders 01/03/21 19:37 LORazepam [Ativan] See Protocol IVPUSH TITRATE PRN LORazepam [Ativan] See Protocol PO TITRATE PRN 01/03/21 19:38 Oxygen Therapy [RC] PRN Up With Assistance [RC] ASDIRECTED VTE/DVT Education [RC] Vital Signs [RC] 08,12,16,20,00,04 Ondansetron [Zofran] 4 mg IVPUSH Q4H PRN Sodium Chloride 0.9% [Saline Flush] 10 ml FLUSH ASDIRECTED PRN Temazepam [Restoril] 15 mg PO BEDTIME PRN Peripheral IV Insertion Adult [OM.PC] Routine Resuscitation Status Routine 01/03/21 19:39 Peripheral IV Care [RC] Q4H 01/03/21 20:00 NS + KCl 20mEq/L [Normal Saline with 20 mEq KCl] 1,000 ml IV ASDIRECTED 01/03/21 20:02 Antiembolic Devices [RC] PER UNIT ROUTINE SCD [Sequential Compression Device] [OM.PC] Routine 01/03/21 21:00 Lactulose [Cephulac] 20 gm PO TID Metoprolol Tartrate [Lopressor] 25 mg PO BID 01/03/21 23:20 Vaccine to be Administered/Admin Charge [RC] ASDIRECTED 01/04/21 08:00 Multivitamins/Minerals [Vitamins and Minerals] 1 tab PO WITHBREAKFAST 01/04/21 09:00 Folic Acid 1 mg PO DAILY Pharmacy to Dose - InFluenza V [Pharmacy to Dose - InFluenza Vaccine] 1 each IM DAILY Thiamine [Vitamin B-1] 100 mg PO DAILY amLODIPine [Norvasc] 5 mg PO DAILY 01/04/21 09:45 cefTRIAXone [Rocephin] 1 gm Sodium Chloride 0.9% [Normal Saline AdvBag] 50 ml IV Q24H 01/05/21 05:11 BASIC METABOLIC PANEL,BMP [CHEM] AM CBC WITH AUTO DIFF [HEME] AM HEPATIC FUNCTION PANEL,HFP [CHEM] AM MAGNESIUM [CHEM] AM PHOSPHORUS [CHEM] AM 01/06/21 05:11 BASIC METABOLIC PANEL,BMP [CHEM] AM CBC WITH AUTO DIFF [HEME] AM HEPATIC FUNCTION PANEL,HFP [CHEM] AM MAGNESIUM [CHEM] AM PHOSPHORUS [CHEM] AM 01/07/21 05:11 BASIC METABOLIC PANEL,BMP [CHEM] AM CBC WITH AUTO DIFF [HEME] AM - Plan Plan:: alcohol addiction consult give thiamine, folate, multivitamin alcohol withdrawal last alcoholic drink: 01/01 symptoms : nausea, tremor improving treat with ciwa protocol alcoholic liver cirrhosis portal htn high ammonia thrombocytopenia due to portal htn alcoholic hepatitis will follow blood counts started lactulose follow electrolytes replace hypophosphatemia, hypomagnesemia leukocytosis likely due to n/v possible uti Urine cx: pending empirical tx with ceftriaxone htn controlled treat with Norvasc, metoprolol diet controlled dm follow fasting am BSs diabetic diet dvt prophylaxis SCDs with thrombocytopenia
[2021-01-04] MEDS ORDERED: cefTRIAXone 1 GM in Sodium Chloride 0.9% 50 ML IV SCH (10:00)
[2021-01-04] MEDS: Spironolactone 25 MG Tab PO SCH ×2 (10:30→21:03)
[2021-01-04] MEDS: Phosphorus #1 250 MG Tab PO SCH ×3 (14:33→21:05)
[2021-01-04] MEDS: LORazepam 2 MG/ML SDV IVPUSH PRN ×2 (21:01→22:09)
[2021-01-05] MEDS ORDERED: Folic Acid 50 MG/10 ML MDV ONE ×5 (00:22)
[2021-01-05] MEDS ORDERED: Thiamine 200 MG/2 ML MDV ONE ×5 (00:23)
[2021-01-05] MEDS ORDERED: LORazepam 2 MG/ML SDV ONE ×6 (00:23)
--- NOTE | 2021-01-05 11:16 | PCM.DCSUM1 ---
Discharge Summary - Hospital Course Free Text/Narrative:: 30 yo male with h.o alcohol addiction and abuse presented with concern for alcohol withdrawal he was treated for leukocytosis with ceftriaxone htn was managed alcohol withdrawal symptoms were treated with Ativan per [facility] protocol the patient told the nursing staff that he wants to leave before I could get to him to talk about it he left the facility via the back door Diagnosis: Stroke: No - Discharge Data Discharge Date: 01/04/21 Discharge Disposition: Against Medical Advice 07 Condition: Fair - Referral to Home Health Primary Care Physician: PCP None - Discharge Diagnosis/Problem(s) (1) Portal hypertension SNOMED Code(s): 44003562 ICD Code: K76.6 - PORTAL HYPERTENSION Status: Acute (2) HTN (hypertension) SNOMED Code(s): 29521000 ICD Code: I10 - ESSENTIAL (PRIMARY) HYPERTENSION Status: Acute (3) Thrombocytopenia SNOMED Code(s): 148283249 ICD Code: D69.6 - THROMBOCYTOPENIA, UNSPECIFIED Status: Acute (4) Alcohol withdrawal syndrome SNOMED Code(s): 660569562 ICD Code: F10.239 - ALCOHOL DEPENDENCE WITH WITHDRAWAL, UNSPECIFIED Status: Acute Qualifiers: Complication of substance-induced condition: with unspecified complication Qualified Code(s): F10.239 - Alcohol dependence with withdrawal, unspecified (5) Cirrhosis of liver SNOMED Code(s): 94546404 ICD Code: K74.60 - UNSPECIFIED CIRRHOSIS OF LIVER Status: Acute Qualifiers: Hepatic cirrhosis type: alcoholic cirrhosis Ascites presence: with ascites Qualified Code(s): K70.31 - Alcoholic cirrhosis of liver with ascites (6) Hypokalemia SNOMED Code(s): 69293700 ICD Code: E87.6 - HYPOKALEMIA Status: Acute (7) Hypomagnesemia SNOMED Code(s): 256313893 ICD Code: E83.42 - HYPOMAGNESEMIA Status: Acute (8) Jaundice due to hepatitis SNOMED Code(s): 67193752 ICD Code: K75.9 - INFLAMMATORY LIVER DISEASE, UNSPECIFIED Status: Acute - Discharge Plan *PRESCRIPTION DRUG MONITORING PROGRAM REVIEWED*: Not Applicable *COPY OF PRESCRIPTION DRUG MONITORING REPORT IN PATIENT GERARDO: Not Applicable Home Medications: Home Meds Folic Acid 1 mg PO DAILY 05/05/20 [History] Lactulose [Chronulac] 10 gm PO TID 05/05/20 [History] Metoprolol Tartrate 25 mg PO BID 05/05/20 [History] Thiamine [Vitamin B-1] 100 mg PO DAILY 05/05/20 [History] amLODIPine [Norvasc] 5 mg PO DAILY 05/05/20 [History] Ferrous Sulfate 325 mg PO BIDMEALS 01/04/21 [History] Spironolactone [Aldactone] 50 mg PO DAILY PRN 01/04/21 [History] - Discharge Summary/Plan Comment DC Time >30 min.: No Total # of Minutes for Discharge Time: 10 min writing note and discussing events with staff - Patient Data Vitals - Most Recent: Last Vital Signs Temp 98.3 F 01/04/21 20:00 Pulse 80 01/04/21 21:03 Resp 20 01/04/21 20:00 BP 146/90 H 01/04/21 21:03 Pulse Ox 98 01/04/21 20:00 Weight - Most Recent: 178 lb 3.2 oz I&O - Last 24 hours: Intake & Output 01/04/21 01/05/21 01/05/21 22:59 06:59 14:59 Intake Total 1318 Output Total 250 Balance 1068 Lab Results - Last 24 hrs: Laboratory Results - last 24 hr 01/04/21 01/04/21 Range/Units 05:40 05:40 WBC 11.0 H (5.0-10.0) 10^3/uL RBC 2.53 L (4.6-6.2) 10^6/uL Hgb 9.0 L (14.0-18.0) g/dL Hct 26.1 L (40.0-54.0) % MCV 103.2 H (80-100) fL MCH 35.6 H (27.0-34.0) pg MCHC 34.5 (33.0-35.0) g/dL Plt Count 46 L* (150-450) 10^3/uL Neut % (Auto) 73.5 (42.2-75.2) % Lymph % (Auto) 17.0 L (20.5-50.1) % [place] % (Auto) 8.5 H (2-8) % Eos % (Auto) 0.7 L (1.0-3.0) % Baso % (Auto) 0.3 (0.0-1.0) % Sodium 137 (136-145) mmol/L Potassium 3.8 (3.5-5.1) mmol/L Chloride 99 (98-107) mmol/L Carbon Dioxide 28 (21-32) mmol/L Anion Gap 13.8 H (7-13) mEq/L BUN 18 (7-18) mg/dL Creatinine 0.95 (0.70-1.30) mg/dL Est Cr Clr Drug Dosing 110.00 mL/min Estimated GFR (MDRD) > 60 Glucose 77 (70-99) mg/dL Calcium 8.2 L (8.5-10.1) mg/dL Phosphorus 2.3 L (2.6-4.7) mg/dL Magnesium 1.8 (1.8-2.4) mg/dL Total Bilirubin 11.5 H (0.2-1.0) mg/dL Direct Bilirubin 5.8 H (0.0-0.2) mg/dL Indirect Bilirubin 5.7 AST 76 H (15-37) U/L ALT 23 (16-63) U/L Alkaline Phosphatase 128 H (46-116) U/L Total Protein 7.6 (6.4-8.2) g/dL Albumin 2.9 L (3.4-5.0) g/dL Globulin 4.7 Albumin/Globulin Ratio 0.62 Med Orders - Current: Current Medications Discontinued Medications Amlodipine Besylate (Amlodipine 5 Mg Tab) 5 mg PO DAILY [facility] Last Admin: 01/04/21 08:02 Dose: 5 mg Documented by: Diphtheria/Tetanus/Acell Pertussis (Diphtheria,Pertussis(Acell),Tetanus Vaccine 0.5 Ml Syringe) 0.5 ml IM .ONCE ONE Stop: 01/03/21 23:21 Enoxaparin Sodium (Enoxaparin 40 Mg/0.4 Ml Syringe) 40 mg SUBCUT DAILY [facility] Folic Acid (Folic Acid 1 Mg Tab) 1 mg PO DAILY [facility] Last Admin: 01/04/21 08:02 Dose: 1 mg Documented by: Folic Acid (Folic Acid 50 Mg/10 Ml Mdv) Confirm Administered Dose 50 mg .ROUTE .STK-MED ONE Stop: 01/05/21 00:23 Folic Acid (Folic Acid 50 Mg/10 Ml Mdv) Confirm Administered Dose 50 mg .ROUTE .STK-MED ONE Stop: 01/05/21 00:23 Folic Acid (Folic Acid 50 Mg/10 Ml Mdv) Confirm Administered Dose 50 mg .ROUTE .STK-MED ONE Stop: 01/05/21 00:23 Folic Acid (Folic Acid 50 Mg/10 Ml Mdv) Confirm Administered Dose 50 mg .ROUTE .STK-MED ONE Stop: 01/05/21 00:23 Folic Acid (Folic Acid 50 Mg/10 Ml Mdv) Confirm Administered Dose 50 mg .ROUTE .STK-MED ONE Stop: 01/05/21 00:23 Multivitamins/Minerals 10 ml/Folic Acid 1 mg/ Thiamine HCl 100 mg/ Lactated Ringer's 1,011.2 mls @ 999 mls/hr IV ONETIME ONE Stop: 01/03/21 17:49 Last Admin: 01/03/21 16:58 Dose: 999 mls/hr Documented by: Magnesium Sulfate 2 gm/ Premix 50 mls @ 25 mls/hr IV ONETIME ONE Stop: 01/03/21 19:57 Last Admin: 01/03/21 18:55 Dose: 25 mls/hr Documented by: Potassium Chloride/Sodium Chloride (Normal Saline With 20 Meq Kcl) 1,000 mls @ 100 mls/hr IV ASDIRECTED [facility] Last Infusion: 01/04/21 13:07 Dose: 100 mls/hr Documented by: Ceftriaxone Sodium 1 gm/ (Sodium Chloride) 50 mls @ 100 mls/hr IV Q24H [facility] Last Infusion: 01/04/21 11:34 Dose: Infused Documented by: Influenza Virus Vaccine (Pharmacy To Dose - Influenza Vaccine) 1 each IM DAILY [facility] Last Admin: 01/04/21 08:03 Dose: Not Given Documented by: Lactulose (Lactulose Soln 10 Gm/15 Ml 30 Ml Ud Cup) 20 gm PO TID [facility] Last Admin: 01/04/21 21:04 Dose: 20 gm Documented by: Lorazepam (Lorazepam 2 Mg/Ml Sdv) 0 mg IVPUSH TITRATE PRN; Protocol PRN Reason: ciok protocol Last Admin: 01/04/21 22:09 Dose: 2 mg Documented by: Lorazepam (Lorazepam 0.5 Mg Tab) 0 mg PO TITRATE PRN; Protocol PRN Reason: ciok protocol Last Admin: 01/03/21 21:06 Dose: 1 mg Documented by: Lorazepam (Lorazepam 2 Mg/Ml Sdv) Confirm Administered Dose 2 mg .ROUTE .STK-MED ONE Stop: 01/05/21 00:24 Lorazepam (Lorazepam 2 Mg/Ml Sdv) Confirm Administered Dose 2 mg .ROUTE .STK-MED ONE Stop: 01/05/21 00:24 Lorazepam (Lorazepam 2 Mg/Ml Sdv) Confirm Administered Dose 2 mg .ROUTE .STK-MED ONE Stop: 01/05/21 00:24 Lorazepam (Lorazepam 2 Mg/Ml Sdv) Confirm Administered Dose 2 mg .ROUTE .STK-MED ONE Stop: 01/05/21 00:24 Lorazepam (Lorazepam 2 Mg/Ml Sdv) Confirm Administered Dose 2 mg .ROUTE .STK-MED ONE Stop: 01/05/21 00:24 Lorazepam (Lorazepam 2 Mg/Ml Sdv) Confirm Administered Dose 2 mg .ROUTE .STK-MED ONE Stop: 01/05/21 00:24 Metoprolol Tartrate (Metoprolol Tartrate 25 Mg Tab) 25 mg PO BID [facility] Last Admin: 01/04/21 21:03 Dose: 25 mg Documented by: Multivitamins/Minerals (Multivitamins, Therapeutic With Minerals Tab) 1 tab PO WITHBREAKFAST [facility] Last Admin: 01/04/21 07:55 Dose: 1 tab Documented by: Ondansetron HCl (Ondansetron 4 Mg/2 Ml Sdv) 4 mg IVPUSH ONETIME ONE Stop: 01/03/21 16:50 Last Admin: 01/03/21 17:00 Dose: 4 mg Documented by: Ondansetron HCl (Ondansetron 4 Mg/2 Ml Sdv) 4 mg IVPUSH Q4H PRN PRN Reason: Nausea/Vomiting Last Admin: 01/03/21 20:33 Dose: 4 mg Documented by: Potassium Chloride (Potassium Chloride 10 Meq Tab.Er) 40 meq PO Q6H [facility] Stop: 01/04/21 02:01 Last Admin: 01/04/21 01:57 Dose: 40 meq Documented by: Sodium Chloride (Sodium Chloride 0.9% 10 Ml Syringe) 10 ml FLUSH ASDIRECTED PRN PRN Reason: Keep Vein Open Sodium Phosphate (Phosphorus #1 250 Mg Tab) 250 mg PO QID [facility] Stop: 01/04/21 21:01 Last Admin: 01/04/21 21:05 Dose: 250 mg Documented by: Spironolactone (Spironolactone 25 Mg Tab) 25 mg PO BID [facility] Spironolactone (Spironolactone 25 Mg Tab) 25 mg PO BID [facility] Last Admin: 01/04/21 21:03 Dose: 25 mg Documented by: Temazepam (Temazepam 15 Mg Cap) 15 mg PO BEDTIME PRN PRN Reason: Sleep Last Admin: 01/03/21 20:34 Dose: 15 mg Documented by: Thiamine HCl (Thiamine 100 Mg Tab) 100 mg PO DAILY [facility] Last Admin: 01/04/21 08:02 Dose: 100 mg Documented by: Thiamine HCl (Thiamine 200 Mg/2 Ml Mdv) Confirm Administered Dose 200 mg .ROUTE .STK-MED ONE Stop: 01/05/21 00:24 Thiamine HCl (Thiamine 200 Mg/2 Ml Mdv) Confirm Administered Dose 200 mg .ROUTE .STK-MED ONE Stop: 01/05/21 00:24 Thiamine HCl (Thiamine 200 Mg/2 Ml Mdv) Confirm Administered Dose 200 mg .ROUTE .STK-MED ONE Stop: 01/05/21 00:24 Thiamine HCl (Thiamine 200 Mg/2 Ml Mdv) Confirm Administered Dose 200 mg .ROUTE .STK-MED ONE Stop: 01/05/21 00:24 Thiamine HCl (Thiamine 200 Mg/2 Ml Mdv) Confirm Administered Dose 200 mg .ROUTE .STK-MED ONE Stop: 01/05/21 00:24
== END 2021-01-04 23:30 | disposition left against medical advice (07) | DRG 894 ==
LOC: DL.ED 16:34 → DL.MS 18:12 → DL.ED 18:18
PROVIDERS: ADMIT Internal Medicine; ATTEND Internal Medicine
DX: F10.239 Alcohol dependence with withdrawal, unspecified (principal); R17 Unspecified jaundice; K76.6 Portal hypertension; K70.31 Alcoholic cirrhosis of liver with ascites; F10.288 Alcohol dependence with other alcohol-induced disorder; E87.6 Hypokalemia; E83.42 Hypomagnesemia; D69.6 Thrombocytopenia, unspecified; I10 Essential (primary) hypertension; E11.9 Type 2 diabetes mellitus without complications; K76.0 Fatty (change of) liver, not elsewhere classified; Z20.822 Contact with and (suspected) exposure to COVID-19; Z23 Encounter for immunization; Z79.899 Other long term (current) drug therapy
CPT/HCPCS: 0240U; 36415; 80048; 80053; 80076; 80143; 80179; 80305-QW; 80307; 81001; 82140; 82150; 83735; 84100; 85025; 87086; 87088; 87186; 99285; A9270-GY; J0696; J2060; J2405; J3411; J3475; J3480; J3490; J7120

== ENCOUNTER 2021-01-04 23:43 | Inpatient (IN) | payer MEDICAID ==
[2021-01-04] MEDS ORDERED: LORazepam 2 MG/ML SDV IVPUSH ONE (23:51)
[2021-01-05] MEDS ORDERED: MVI, Adult with Vitamin K 10 ML, Folic Acid 1 MG, Thiamine 100 MG in Lactated Ringers 1... IV ONE ×4 (00:10)
[2021-01-05] MEDS ORDERED: Bacitracin Oint 1 GM U/D Packet TOP ONE ×2 (00:13→15:32)
[2021-01-05] MEDS ORDERED: diphenhydrAMINE 50 MG/ML SDV IVPUSH ONE (00:26)
[2021-01-05] MEDS ORDERED: Haloperidol Lactate 5 MG/ML SDV IM ONE (00:27)
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
[2021-01-05] MEDS ORDERED: LORazepam 2 MG/ML SDV IVPUSH ONE ×3 (00:58→04:40)
[2021-01-05 01:01] LABS: ANION GAP 18.8 mEq/L (7-13); CHLORIDE,CL 97 mmol/L (98-107); SODIUM,NA 133 mmol/L (136-145)
[2021-01-05] MEDS ORDERED: OLANZapine 10 MG Vial IM ONE ×3 (01:37→03:33)
[2021-01-05] MEDS ORDERED: Magnesium Sulfate/Water 2 GM in Premix Bag 1 BAG IV ONE (01:44)
--- NOTE | 2021-01-05 05:29 | CT ---
PROCEDURE INFORMATION: Exam: CT Head Without Contrast Exam date and time: 01/05/2021 4:53 AM Age: 30 years old Clinical indication: Other: Confusion; Additional info: Confused fall TECHNIQUE: Imaging protocol: Computed tomography of the head without contrast. Radiation optimization: All CT scans at this facility use at least one of these dose optimization techniques: automated exposure control; mA and/or kV adjustment per patient size (includes targeted exams where dose is matched to clinical indication); or iterative reconstruction. COMPARISON: No relevant prior studies available. FINDINGS: Brain: No acute infarct or hemorrhage. Cerebral ventricles: No ventriculomegaly. Paranasal sinuses: Paranasal sinuses are clear. No air-fluid level. Mastoid air cells: Visualized mastoid air cells are clear. Bones/joints: No calvarial or skull base fracture. Soft tissues: Unremarkable. IMPRESSION: 1. No calvarial or skull base fracture. 2. No acute infarct or hemorrhage.
[2021-01-05] MEDS ORDERED: LORazepam 2 MG/ML SDV IVPUSH PRN ×2 (07:01→11:56)
--- NOTE | 2021-01-05 11:42 | PCM.HP ---
H&P History of Present Illness - General Date of Service: 01/05/21 Admit Problem/Dx: Admission Diagnosis/Problem Admission Diagnosis/Problem Altered mental status Source of Information: Patient, Provider - History of Present Illness Initial Comments - Free Text/Narative: h/o alcohol addiction, abuse, htn, recently admitted with alcohol withdrawal symptoms, leukocytosis left the hospital AMA came back to ER with bruises, falling, c/o being chased, hallucinations required multiple doses of zyprexa, ativan, haldol for agitation now lethargic - Related Data Allergies/Adverse Reactions: Allergies Allergy/AdvReac Type Severity Reaction Status Date / Time No Known Allergies Allergy Verified 03/12/20 20:27 Home Medications: Home Meds Folic Acid 1 mg PO DAILY 05/05/20 [History] Lactulose [Chronulac] 10 gm PO TID 05/05/20 [History] Metoprolol Tartrate 25 mg PO BID 05/05/20 [History] Thiamine [Vitamin B-1] 100 mg PO DAILY 05/05/20 [History] amLODIPine [Norvasc] 5 mg PO DAILY 05/05/20 [History] Ferrous Sulfate 325 mg PO BIDMEALS 01/04/21 [History] Spironolactone [Aldactone] 50 mg PO DAILY PRN 01/04/21 [History] Past Medical History - Past Health History Medical/Surgical History: Denies Medical/Surgical History Cardiovascular History: Reports: Hypertension Gastrointestinal History: Reports: Fatty Liver Neurological History: Reports: Concussion Psychiatric History: Reports: Addiction Endocrine/Metabolic History: Reports: Diabetes, Type II Other Endocrine/Metabolic History: States he was tested once and they stated he was pre diabetic. Never followed up. Hematologic History: Reports: Folic Acid - Past Surgical History GI Surgical History: Reports: Colonoscopy, EGD, Other (See Below) Other GI Surgeries/Procedures: abd fluid drained Male Surgical History: Reports: Circumcision Social & Family History - Family History Family Medical History: No Pertinent Family History - Tobacco Use Tobacco Use Status *Q: Never Tobacco User Second Hand Smoke Exposure: No - Caffeine Use Caffeine Use: Reports: Energy Drinks, Soda Other Caffeine Use: 1 soda /day H&P Review of Systems - Review of Systems: Review Of Systems: Unable To Obtain Reason Not Obtained: limited due to lethargy, info from ER provider Pulmonary: Denies: Shortness of Breath Cardiovascular: Denies: Chest Pain Psychiatric: Reports: Confusion, Mood Lability, Anxiety, Agitation, Hallucinations, Hallucinations (Auditory), Hallucinations (Visual). Denies: Suicidal Ideation, Homicidal Ideation Neurological: Reports: Confusion Exam - Exam Exam: See Below - Vital Signs Vital Signs: Last Vital Signs Temp 99.2 F 01/05/21 08:20 Pulse 129 H 01/05/21 08:20 Resp 20 01/05/21 08:20 BP 155/66 H 01/05/21 08:20 Pulse Ox 99 01/05/21 08:20 Weight: 179 lb - Exam Quality Assessment: Supplemental Oxygen General: Lethargic Neck: Supple Lungs: Clear to Auscultation, Normal Respiratory Effort Cardiovascular: Regular Rate, Regular Rhythm GI/Abdominal Exam: Normal Bowel Sounds, Soft, Non-Tender Extremities: No Pedal Edema Skin: Other (bruises on face, b/l knees) - Patient Data Lab Results Last 24 hrs: Laboratory Results - last 24 hr 01/04/21 01/04/21 01/05/21 Range/Units 00:05 00:05 00:05 WBC Cancelled Corrected WBC Cancelled RBC Cancelled Hgb Cancelled Hct Cancelled MCV Cancelled MCH Cancelled MCHC Cancelled Plt Count Cancelled Neut % (Auto) Cancelled Lymph % (Auto) Cancelled [place] % (Auto) Cancelled Eos % (Auto) Cancelled Baso % (Auto) Cancelled Add Manual Diff Cancelled Sodium Cancelled Potassium Cancelled Chloride Cancelled Carbon Dioxide Cancelled Anion Gap Cancelled BUN Cancelled Creatinine Cancelled Est Cr Clr Drug Dosing Cancelled Estimated GFR (MDRD) Cancelled BUN/Creatinine Ratio Cancelled Glucose Cancelled Calcium Cancelled Magnesium Cancelled Total Bilirubin Cancelled AST Cancelled ALT Cancelled Alkaline Phosphatase Cancelled Ammonia 35 H (11-32) umol/L Total Protein Cancelled Albumin Cancelled Globulin Cancelled Albumin/Globulin Ratio Cancelled Ethyl Alcohol Cancelled 01/05/21 01/05/21 Range/Units 00:05 00:05 WBC 16.8 H Corrected WBC RBC 2.70 L Hgb 9.7 L Hct 27.9 L MCV 103.3 H MCH 35.9 H MCHC 34.8 Plt Count 66 L Neut % (Auto) 75.1 Lymph % (Auto) 14.5 L [place] % (Auto) 8.7 H Eos % (Auto) 1.0 Baso % (Auto) 0.7 Add Manual Diff Sodium 133 L Potassium 3.8 Chloride 97 L Carbon Dioxide 21 Anion Gap 18.8 H BUN 15 Creatinine 1.26 Est Cr Clr Drug Dosing TNP Estimated GFR (MDRD) > 60 BUN/Creatinine Ratio 11.9 Glucose 142 H Calcium 8.3 L Magnesium Total Bilirubin 9.5 H AST 75 H ALT 28 Alkaline Phosphatase 152 H Ammonia (11-32) umol/L Total Protein 8.5 H Albumin 3.3 L Globulin 5.2 Albumin/Globulin Ratio 0.63 Ethyl Alcohol < 3 Result Diagrams: 01/05/21 00:05 01/05/21 00:05 - Problem List (1) Delirium SNOMED Code(s): 8649574 ICD Code: R41.0 - DISORIENTATION, UNSPECIFIED Status: Acute Current Visit: Yes (2) Alcohol withdrawal syndrome SNOMED Code(s): 076939192 ICD Code: F10.239 - ALCOHOL DEPENDENCE WITH WITHDRAWAL, UNSPECIFIED Status: Acute Current Visit: Yes Qualifiers: Complication of substance-induced condition: with unspecified complication Qualified Code(s): F10.239 - Alcohol dependence with withdrawal, unspecified (3) Hallucinations SNOMED Code(s): 8389202 ICD Code: R44.3 - HALLUCINATIONS, UNSPECIFIED Status: Acute Current Visit: Yes (4) Total bilirubin, elevated SNOMED Code(s): 781368782504597 ICD Code: R17 - UNSPECIFIED JAUNDICE Status: Acute Current Visit: Yes (5) UTI (urinary tract infection) SNOMED Code(s): 86610241 ICD Code: N39.0 - URINARY TRACT INFECTION, SITE NOT SPECIFIED Status: Acute Current Visit: Yes Qualifiers: Urinary tract infection type: acute cystitis Hematuria presence: without hematuria Qualified Code(s): N30.00 - Acute cystitis without hematuria (6) HTN (hypertension) SNOMED Code(s): 21208024 ICD Code: I10 - ESSENTIAL (PRIMARY) HYPERTENSION Status: Acute Current Visit: No (7) Jaundice due to hepatitis SNOMED Code(s): 96927638 ICD Code: K75.9 - INFLAMMATORY LIVER DISEASE, UNSPECIFIED Status: Acute Current Visit: No (8) Portal hypertension SNOMED Code(s): 55968388 ICD Code: K76.6 - PORTAL HYPERTENSION Status: Acute Current Visit: No (9) Thrombocytopenia SNOMED Code(s): 483407123 ICD Code: D69.6 - THROMBOCYTOPENIA, UNSPECIFIED Status: Acute Current Visit: No Problem List Initiated/Reviewed/Updated: Yes Orders Last 24hrs: Active Orders 24 hr Category Date Time Status Admission Diagnosis [ADT] Stat ADT 01/05/21 05:53 Ordered Admission Status [Patient Status] [ADT] Routine ADT 01/05/21 05:53 Active Activity as Tolerated [RC] .Routine Care 01/05/21 07:00 Active Antiembolic Devices [RC] PER UNIT ROUTINE Care 01/05/21 11:33 Ordered Wound Care [RC] Q12H Care 01/05/21 11:34 Ordered Regular Diet [DIET] Diet 01/05/21 Breakfast Active CXR [Chest 1V Frontal] [CR] Routine Exams 01/05/21 11:30 Ordered BASIC METABOLIC PANEL,BMP [CHEM] AM Lab 01/06/21 05:11 Ordered BASIC METABOLIC PANEL,BMP [CHEM] AM Lab 01/07/21 05:11 Ordered BASIC METABOLIC PANEL,BMP [CHEM] AM Lab 01/08/21 05:11 Ordered BASIC METABOLIC PANEL,BMP [CHEM] AM Lab 01/09/21 05:11 Ordered BASIC METABOLIC PANEL,BMP [CHEM] AM Lab 01/10/21 05:11 Ordered BASIC METABOLIC PANEL,BMP [CHEM] AM Lab 01/11/21 05:11 Ordered CBC WITH AUTO DIFF [HEME] AM Lab 01/06/21 05:11 Ordered CBC WITH AUTO DIFF [HEME] AM Lab 01/07/21 05:11 Ordered CBC WITH AUTO DIFF [HEME] AM Lab 01/08/21 05:11 Ordered CBC WITH AUTO DIFF [HEME] AM Lab 01/09/21 05:11 Ordered CBC WITH AUTO DIFF [HEME] AM Lab 01/10/21 05:11 Ordered CBC WITH AUTO DIFF [HEME] AM Lab 01/11/21 05:11 Ordered CULTURE URINE [RM] Routine Lab 01/05/21 11:29 Ordered DRUG SCREEN URINE BIORAD [URCHEM] Stat Lab 01/05/21 00:07 Ordered UA RFX NIKITA AND CULT IF INDIC [URIN] Stat Lab 01/05/21 00:07 Ordered UA W/MICROSCOPIC [URIN] Routine Lab 01/05/21 11:29 Ordered Ferrous Sulfate Med 01/05/21 18:00 Active 325 mg PO BIDMEALS Folic Acid Med 01/06/21 09:00 Active 1 mg PO DAILY Lactulose [Chronulac] Med 01/05/21 14:00 Ordered 10 gm PO TID Metoprolol Tartrate [Lopressor] Med 01/05/21 21:00 Ordered 25 mg PO BID Multivitamins/Minerals [Vitamins and Minerals] Med 01/05/21 12:00 Ordered 1 tab PO WITHBREAKFAST OLANZapine [ZyPREXA] Med 01/05/21 11:30 Ordered 5 mg PO BID Piperacillin/Tazobactam [Zosyn] 3.375 gm Med 01/05/21 11:30 Ordered Sodium Chloride 0.9% [Normal Saline AdvBag] 100 ml IV Q6H Spironolactone Med 01/06/21 09:00 Ordered 25 mg PO DAILY Thiamine [Vitamin B-1] Med 01/05/21 11:30 Ordered 100 mg PO DAILY amLODIPine [Norvasc] Med 01/06/21 09:00 Active 5 mg PO DAILY SCD [Sequential Compression Device] [OM.PC] Routine Oth 01/05/21 11:33 Ordered Code Status [Resuscitation Status] Routine Resus Stat 01/05/21 06:59 Ordered Medication Orders Amlodipine Besylate (Amlodipine 5 Mg Tab) 5 mg PO DAILY [facility] Ferrous Sulfate (Ferrous Sulfate 325 Mg Tab) 325 mg PO BIDMEALS FAR[facility] Folic Acid (Folic Acid 1 Mg Tab) 1 mg PO DAILY [facility] Piperacillin Sod/Tazobactam (Sod 3.375 gm/ Sodium Chloride) 100 mls @ 200 mls/hr IV Q6H [facility] Lactulose (Lactulose Soln 10 Gm/15 Ml 30 Ml Ud Cup) 10 gm PO TID [facility] Metoprolol Tartrate (Metoprolol Tartrate 25 Mg Tab) 25 mg PO BID [facility] Multivitamins/Minerals (Multivitamins, Therapeutic With Minerals Tab) 1 tab PO WITHBREAKFAST FAR[facility]AT Olanzapine (Olanzapine 5 Mg Tab) 5 mg PO BID [facility] Spironolactone (Spironolactone 25 Mg Tab) 25 mg PO DAILY [facility] Thiamine HCl (Thiamine 100 Mg Tab) 100 mg PO DAILY [facility] Assessment/Plan Comment:: h/o alcohol addiciton, alcohol abuse alcohol addiction consult give thiamine, folate, multivitamin alcohol withdrawal last alcoholic drink: 01/01 symptoms : hallucinations, paranoid behavior, agitation severe last night treat with ciwa protocol add zyprexa alcoholic liver cirrhosis portal htn high ammonia thrombocytopenia due to portal htn alcoholic hepatitis will follow blood counts started lactulose follow electrolytes replace as needed leukocytosis possible uti Urine cx: pending check cxr blood cx: pending empirical tx with zosyn htn treat with Norvasc, metoprolol diet controlled dm follow fasting am BSs diabetic diet dvt prophylaxis with thrombocytopenia SCDs
--- NOTE | 2021-01-05 11:52 | CR ---
EXAMINATION: Chest 1V Frontal SEX: Male AGE: 30 years CLINICAL HISTORY: 30-year-old hospitalized male with clinical "leukocytosis". Interpretation: Technically poor inspiratory effort crowding and accentuating lung markings. Note: Ill-defined nodular densities periphery right midlung and behind the heart on the right. Covid pneumonia? Mets? Suggest unenhanced CT scan chest. Normal cardiac silhouette (size and configuration). No pulmonary vascular congestion, cephalization of flow, alveolar edema or dependent pleural effusion. Left-sided aortic arch. Normal midline tracheal bronchial airway. No alveolar infiltrates, air bronchograms, other lung mass or hilar lymphadenopathy. No pneumothorax or pneumomediastinum. CONCLUSION: Suspicious ill-defined densities right lung (see above).
[2021-01-05] MEDS ORDERED: LORazepam 0.5 MG Tab PO PRN (11:56)
[2021-01-05] MEDS: Multivitamins, Therapeutic with Minerals Tab PO SCH (12:26)
[2021-01-05] MEDS: Thiamine 100 MG Tab PO SCH (12:27)
[2021-01-05] MEDS: OLANZapine 5 MG Tab PO SCH ×2 (12:27→22:37)
[2021-01-05] MEDS: Piperacillin/Tazobactam 3.375 GM in Sodium Chloride 0.9% 100 ML IV SCH ×2 (12:37→17:42)
[2021-01-05] MEDS: Lactulose Soln 10 GM/15 ML 30 ML UD Cup PO SCH ×2 (14:03→22:35)
--- NOTE | 2021-01-05 14:20 | CT ---
EXAMINATION: Chest wo Cont SEX: Male AGE: 30 years CLINICAL HISTORY: 30-year-old hospitalized male with leukocytosis and suspicious "ill-defined nodular densities right lung" on plain CXR. Follow-up. Scan technique: Volume acquisition of data unenhanced CT scan of the chest (bony thorax, lungs and mediastinum) obtained without oral or IV contrast were patient was lying supine on the Siemens multi slice scanner [place], [place]. All data archived in the PACS system for storage, reformatting axial/sagittal/coronal planes and study (bone, mediastinal, soft tissue and lung windows). Interpretation: ABNORMAL. 1. Several nodular parenchymal densities identified respectively in the right upper lobe (largest mass RUL with irregular margins is 18 mm diameter); and, in both superior and posterior segments of the right lower lobe. Septic emboli? 2. Less well-defined "groundglass" interstitial lung densities present in the superior segments of both lower lobes have the radiographic appearance more consistent with viral (COVID) pneumonia. 3. No hilar or mediastinal lymphadenopathy. No dependent pleural effusions. 4. Normal cardiac silhouette (poor inspiration). No pericardial effusion. No vascular congestion or alveolar edema. 5. Normal caliber thoracic and upper abdominal aorta. Gallbladder, unenhanced liver, stomach, spleen, and pancreas are unremarkable i.e. negative. Mild kyphosis and spondylosis dorsal spine. CONCLUSION: Probable COVID19 Pneumonia. Differential consideration includes septic pulmonary emboli. Clinical? No signs of heart failure, alveolar consolidation/air bronchograms. No malignant mass or hilar lymphadenopathy.
[2021-01-05] MEDS ORDERED: Bacitracin Oint 28.35 GM Tube TOP ONE (16:30)
[2021-01-05 17:02] LABS: AMPHETAMINES,URINE NEGATIVE (NEGATIVE); BARBITURATES,URINE NEGATIVE (NEGATIVE); BENZODIAZEPINE,URINE POSITIVE (NEGATIVE); MDMA (ECSTASY), URINE NEGATIVE (NEGATIVE); METHADONE,URINE NEGATIVE (NEGATIVE); METHAMPHETAMINES,URINE NEGATIVE (NEGATIVE); OPIATES,URINE NEGATIVE (NEGATIVE); OXYCODONE,URINE NEGATIVE (NEGATIVE); PHENCYCLIDINE,URINE NEGATIVE (NEGATIVE); TCA,URINE NEGATIVE (NEGATIVE)
[2021-01-05] MEDS: Ferrous Sulfate 325 MG Tab PO SCH (17:42)
[2021-01-05] MEDS: Metoprolol Tartrate 25 MG Tab PO SCH (22:37)
[2021-01-05] MEDS: Bacitracin Oint 28.35 GM Tube TOP SCH (22:49)
[2021-01-05 23:14] LABS: CORONAVIRUS COVID-19 NAA NEGATIVE (NEGATIVE); RESPIRATORY SYNCYTIAL VIR NAA NEGATIVE (NEGATIVE)
[2021-01-06] MEDS: Piperacillin/Tazobactam 3.375 GM in Sodium Chloride 0.9% 100 ML IV SCH ×4 (00:01→17:37)
[2021-01-06] MEDS: Sodium Chloride 0.9% 10 ML Syringe FLUSH PRN ×2 (05:57→12:48)
[2021-01-06 07:00] LABS: ANION GAP 14.5 mEq/L (7-13); CHLORIDE,CL 105 mmol/L (98-107); SODIUM,NA 139 mmol/L (136-145)
[2021-01-06] MEDS: Multivitamins, Therapeutic with Minerals Tab PO SCH (08:42)
[2021-01-06] MEDS: OLANZapine 5 MG Tab PO SCH ×2 (08:42→22:08)
[2021-01-06] MEDS: Spironolactone 25 MG Tab PO SCH (08:43)
[2021-01-06] MEDS: Metoprolol Tartrate 25 MG Tab PO SCH ×2 (08:43→22:08)
[2021-01-06] MEDS: Folic Acid 1 MG Tab PO SCH (08:43)
[2021-01-06] MEDS: amLODIPine 5 MG Tab PO SCH (08:43)
[2021-01-06] MEDS: Ferrous Sulfate 325 MG Tab PO SCH ×2 (08:44→17:16)
[2021-01-06] MEDS: Lactulose Soln 10 GM/15 ML 30 ML UD Cup PO SCH ×3 (08:44→22:09)
[2021-01-06] MEDS: Thiamine 100 MG Tab PO SCH (08:44)
[2021-01-06] MEDS: Bacitracin Oint 28.35 GM Tube TOP SCH ×2 (08:46→22:12)
--- NOTE | 2021-01-06 11:55 | PCM.PN ---
- General Info Date of Service: 01/06/21 Subjective Update: no further hallucinations or paranoid thoughts feeling better has cough, low grade temp since yesterday denies IV Drug use no knowledge of covid infection no cp Functional Status: Reports: Tolerating Diet - Review of Systems General: Reports: Fever, Weakness Pulmonary: Denies: Shortness of Breath Cardiovascular: Denies: Chest Pain, Edema Gastrointestinal: Reports: Other (3-4 BM yesterday). Denies: Abdominal Pain - Patient Data Vitals - Most Recent: Last Vital Signs Temp 100.2 F 01/06/21 08:00 Pulse 74 01/06/21 08:43 Resp 18 01/06/21 08:00 BP 112/58 L 01/06/21 08:43 Pulse Ox 99 01/06/21 08:00 Weight - Most Recent: 179 lb I&O - Last 24 Hours: Intake & Output 01/05/21 01/06/21 01/06/21 22:59 06:59 14:59 Intake Total 1160 192 Output Total 200 600 Balance 960 -408 Lab Results Last 24 Hours: Laboratory Results - last 24 hr 01/05/21 01/05/21 01/05/21 Range/Units 15:45 15:45 22:30 WBC (5.0-10.0) 10^3/uL RBC (4.6-6.2) 10^6/uL Hgb (14.0-18.0) g/dL Hct (40.0-54.0) % MCV (80-100) fL MCH (27.0-34.0) pg MCHC (33.0-35.0) g/dL Plt Count (150-450) 10^3/uL Neut % (Auto) (42.2-75.2) % Lymph % (Auto) (20.5-50.1) % Swain % (Auto) (2-8) % Eos % (Auto) (1.0-3.0) % Baso % (Auto) (0.0-1.0) % Sodium (136-145) mmol/L Potassium (3.5-5.1) mmol/L Chloride (98-107) mmol/L Carbon Dioxide (21-32) mmol/L Anion Gap (7-13) mEq/L BUN (7-18) mg/dL Creatinine (0.70-1.30) mg/dL Est Cr Clr Drug Dosing mL/min Estimated GFR (MDRD) Glucose (70-99) mg/dL Calcium (8.5-10.1) mg/dL Phosphorus (2.6-4.7) mg/dL Magnesium (1.8-2.4) mg/dL Urine Color Yellow (YELLOW) Urine Appearance Clear (CLEAR) Urine pH 7.5 (5.0-9.0) Ur Specific [place] 1.020 (1.005-1.030) Urine Protein Negative (NEGATIVE) Urine Glucose (UA) Negative (NEGATIVE) Urine Ketones 15 H (NEGATIVE) Urine Occult Blood Trace-intact H (NEGATIVE) Urine Nitrite Negative (NEGATIVE) Urine Bilirubin Small H (NEGATIVE) Urine Urobilinogen 1.0 (0.2-1.0) mg/dL Ur Leukocyte Esterase Trace H (NEGATIVE) Urine RBC 0-5 (0-5) /HPF Urine WBC 0-5 (0-5/HPF) /HPF Ur Epithelial Cells Few (NOT SEEN) /HPF Urine Bacteria Rare (0-FEW/HPF) /HPF Urine Opiates Screen Negative (NEGATIVE) Ur Oxycodone Screen Negative (NEGATIVE) Urine Methadone Screen Negative (NEGATIVE) Ur Barbiturates Screen Negative (NEGATIVE) U Tricyclic Antidepress Negative (NEGATIVE) Ur Phencyclidine Scrn Negative (NEGATIVE) Ur Amphetamine Screen Negative (NEGATIVE) U Methamphetamines Scrn Negative (NEGATIVE) Urine MDMA Screen Negative (NEGATIVE) U Benzodiazepines Scrn Positive H (NEGATIVE) Urine Cocaine Screen Negative (NEGATIVE) U Marijuana (THC) Screen Negative (NEGATIVE) Influenza Type A RNA Negative (NEGATIVE) RSV RNA (INAAT) Negative (NEGATIVE) Influenza Type B RNA Negative (NEGATIVE) SARS-CoV-2 RNA (NIC) Negative (NEGATIVE) 01/06/21 01/06/21 Range/Units 06:30 06:30 WBC 12.2 H (5.0-10.0) 10^3/uL RBC 2.12 L (4.6-6.2) 10^6/uL Hgb 7.5 L D (14.0-18.0) g/dL Hct 22.1 L (40.0-54.0) % MCV 104.2 H (80-100) fL MCH 35.4 H (27.0-34.0) pg MCHC 33.9 (33.0-35.0) g/dL Plt Count 47 L* (150-450) 10^3/uL Neut % (Auto) 77.6 H (42.2-75.2) % Lymph % (Auto) 12.9 L (20.5-50.1) % Swain % (Auto) 7.5 (2-8) % Eos % (Auto) 1.7 (1.0-3.0) % Baso % (Auto) 0.3 (0.0-1.0) % Sodium 139 (136-145) mmol/L Potassium 3.5 (3.5-5.1) mmol/L Chloride 105 (98-107) mmol/L Carbon Dioxide 23 (21-32) mmol/L Anion Gap 14.5 H (7-13) mEq/L BUN 8 (7-18) mg/dL Creatinine 1.02 (0.70-1.30) mg/dL Est Cr Clr Drug Dosing 102.45 mL/min Estimated GFR (MDRD) > 60 Glucose 87 (70-99) mg/dL Calcium 8.1 L (8.5-10.1) mg/dL Phosphorus 3.6 (2.6-4.7) mg/dL Magnesium 1.6 L (1.8-2.4) mg/dL Urine Color (YELLOW) Urine Appearance (CLEAR) Urine pH (5.0-9.0) Ur Specific [place] (1.005-1.030) Urine Protein (NEGATIVE) Urine Glucose (UA) (NEGATIVE) Urine Ketones (NEGATIVE) Urine Occult Blood (NEGATIVE) Urine Nitrite (NEGATIVE) Urine Bilirubin (NEGATIVE) Urine Urobilinogen (0.2-1.0) mg/dL Ur Leukocyte Esterase (NEGATIVE) Urine RBC (0-5) /HPF Urine WBC (0-5/HPF) /HPF Ur Epithelial Cells (NOT SEEN) /HPF Urine Bacteria (0-FEW/HPF) /HPF Urine Opiates Screen (NEGATIVE) Ur Oxycodone Screen (NEGATIVE) Urine Methadone Screen (NEGATIVE) Ur Barbiturates Screen (NEGATIVE) U Tricyclic Antidepress (NEGATIVE) Ur Phencyclidine Scrn (NEGATIVE) Ur Amphetamine Screen (NEGATIVE) U Methamphetamines Scrn (NEGATIVE) Urine MDMA Screen (NEGATIVE) U Benzodiazepines Scrn (NEGATIVE) Urine Cocaine Screen (NEGATIVE) U Marijuana (THC) Screen (NEGATIVE) Influenza Type A RNA (NEGATIVE) RSV RNA (INAAT) (NEGATIVE) Influenza Type B RNA (NEGATIVE) SARS-CoV-2 RNA (NIC) (NEGATIVE) Med Orders - Current: Current Medications Amlodipine Besylate (Amlodipine 5 Mg Tab) 5 mg PO DAILY [facility] Last Admin: 01/06/21 08:43 Dose: 5 mg Documented by: Bacitracin (Bacitracin Oint 28.35 Gm Tube) 0 gm TOP BID [facility] Last Admin: 01/06/21 08:46 Dose: 1 applic Documented by: Ferrous Sulfate (Ferrous Sulfate 325 Mg Tab) 325 mg PO BIDMEALS [facility] Last Admin: 01/06/21 08:44 Dose: 325 mg Documented by: Folic Acid (Folic Acid 1 Mg Tab) 1 mg PO DAILY [facility] Last Admin: 01/06/21 08:43 Dose: 1 mg Documented by: Piperacillin Sod/Tazobactam (Sod 3.375 gm/ Sodium Chloride) 100 mls @ 200 mls/hr IV Q6H [facility] Last Infusion: 01/06/21 06:34 Dose: Infused Documented by: Influenza Virus Vaccine (Pharmacy To Dose - Influenza Vaccine) 1 each IM DAILY [facility] Lactulose (Lactulose Soln 10 Gm/15 Ml 30 Ml Ud Cup) 10 gm PO TID [facility] Last Admin: 01/06/21 08:44 Dose: 10 gm Documented by: Lorazepam (Lorazepam 2 Mg/Ml Sdv) 0 mg IVPUSH TITRATE PRN; Protocol PRN Reason: ciwa protocol Lorazepam (Lorazepam 0.5 Mg Tab) 0 mg PO TITRATE PRN; Protocol PRN Reason: ciwa protocol Magnesium Oxide (Magnesium Oxide 250 Mg Tab) 500 mg PO BIDMEALS [facility] Stop: 01/07/21 08:01 Metoprolol Tartrate (Metoprolol Tartrate 25 Mg Tab) 25 mg PO BID [facility] Last Admin: 01/06/21 08:43 Dose: 25 mg Documented by: Multivitamins/Minerals (Multivitamins, Therapeutic With Minerals Tab) 1 tab PO WITHBREAKFAST [facility] Last Admin: 01/06/21 08:42 Dose: 1 tab Documented by: Olanzapine (Olanzapine 5 Mg Tab) 5 mg PO BID [facility] Last Admin: 01/06/21 08:42 Dose: 5 mg Documented by: Sodium Chloride (Sodium Chloride 0.9% 10 Ml Syringe) 10 ml FLUSH ASDIRECTED PRN PRN Reason: IV Use Last Admin: 01/06/21 05:57 Dose: 10 ml Documented by: Spironolactone (Spironolactone 25 Mg Tab) 25 mg PO DAILY [facility] Last Admin: 01/06/21 08:43 Dose: 25 mg Documented by: Thiamine HCl (Thiamine 100 Mg Tab) 100 mg PO DAILY [facility] Last Admin: 01/06/21 08:44 Dose: 100 mg Documented by: Discontinued Medications Bacitracin (Bacitracin Oint 1 Gm U/D Packet) 1 dose TOP ONETIME ONE Stop: 01/05/21 00:14 Last Admin: 01/05/21 00:35 Dose: 1 dose Documented by: Bacitracin (Bacitracin Oint 1 Gm U/D Packet) 1 dose TOP BID ONE Stop: 01/05/21 15:33 Last Admin: 01/05/21 16:53 Dose: Not Given Documented by: Bacitracin (Bacitracin Oint 28.35 Gm Tube) 0 gm TOP ONETIME ONE Stop: 01/05/21 16:31 Last Admin: 01/05/21 16:54 Dose: 1 applic Documented by: Diphenhydramine HCl (Diphenhydramine 50 Mg/Ml Sdv) 25 mg IVPUSH ONETIME ONE Stop: 01/05/21 00:27 Last Admin: 01/05/21 00:35 Dose: 25 mg Documented by: Haloperidol Lactate (Haloperidol Lactate 5 Mg/Ml Sdv) 2.5 mg IM ONETIME ONE Stop: 01/05/21 00:28 Last Admin: 01/05/21 00:43 Dose: 2.5 mg Documented by: Multivitamins/Minerals 10 ml/Folic Acid 1 mg/ Thiamine HCl 100 mg/ Lactated Ringer's 1,011.2 mls @ 500 mls/hr IV ONETIME ONE Stop: 01/05/21 02:11 Last Admin: 01/05/21 00:39 Dose: 500 mls/hr Documented by: Lorazepam (Lorazepam 2 Mg/Ml Sdv) 2 mg IVPUSH ONETIME ONE Stop: 01/04/21 23:52 Last Admin: 01/05/21 00:33 Dose: 2 mg Documented by: Lorazepam (Lorazepam 2 Mg/Ml Sdv) 2 mg IVPUSH ONETIME ONE Stop: 01/05/21 00:59 Last Admin: 01/05/21 01:05 Dose: 2 mg Documented by: Lorazepam (Lorazepam 2 Mg/Ml Sdv) 2 mg IVPUSH ONETIME ONE Stop: 01/05/21 02:57 Last Admin: 01/05/21 03:03 Dose: 2 mg Documented by: Lorazepam (Lorazepam 2 Mg/Ml Sdv) 1 mg IVPUSH ONETIME ONE Stop: 01/05/21 04:41 Last Admin: 01/05/21 05:44 Dose: 1 mg Documented by: Lorazepam (Lorazepam 2 Mg/Ml Sdv) 1 mg IVPUSH Q1H PRN PRN Reason: Agitation Olanzapine (Olanzapine 10 Mg Vial) 5 mg IM ONETIME ONE Stop: 01/05/21 01:38 Last Admin: 01/05/21 01:52 Dose: 5 mg Documented by: Olanzapine (Olanzapine 10 Mg Vial) 55 mg IM ONETIME ONE Stop: 01/05/21 03:19 Olanzapine (Olanzapine 10 Mg Vial) 5 mg IM ONETIME ONE Stop: 01/05/21 03:34 Last Admin: 01/05/21 03:34 Dose: 5 mg Documented by: - Exam General: Alert, Oriented Neck: Supple Lungs: Clear to Auscultation, Normal Respiratory Effort. No: Wheezing Cardiovascular: Regular Rate, Regular Rhythm GI/Abdominal Exam: Normal Bowel Sounds, Soft, Non-Tender Extremities: No Pedal Edema - Patient Data Lab Results Last 24 hrs: Laboratory Results - last 24 hr 01/05/21 01/05/21 01/05/21 Range/Units 15:45 15:45 22:30 WBC (5.0-10.0) 10^3/uL RBC (4.6-6.2) 10^6/uL Hgb (14.0-18.0) g/dL Hct (40.0-54.0) % MCV (80-100) fL MCH (27.0-34.0) pg MCHC (33.0-35.0) g/dL Plt Count (150-450) 10^3/uL Neut % (Auto) (42.2-75.2) % Lymph % (Auto) (20.5-50.1) % Sw[place] % (Auto) (2-8) % Eos % (Auto) (1.0-3.0) % Baso % (Auto) (0.0-1.0) % Sodium (136-145) mmol/L Potassium (3.5-5.1) mmol/L Chloride (98-107) mmol/L Carbon Dioxide (21-32) mmol/L Anion Gap (7-13) mEq/L BUN (7-18) mg/dL Creatinine (0.70-1.30) mg/dL Est Cr Clr Drug Dosing mL/min Estimated GFR (MDRD) Glucose (70-99) mg/dL Calcium (8.5-10.1) mg/dL Phosphorus (2.6-4.7) mg/dL Magnesium (1.8-2.4) mg/dL Urine Color Yellow (YELLOW) Urine Appearance Clear (CLEAR) Urine pH 7.5 (5.0-9.0) Ur Specific [place] 1.020 (1.005-1.030) Urine Protein Negative (NEGATIVE) Urine Glucose (UA) Negative (NEGATIVE) Urine Ketones 15 H (NEGATIVE) Urine Occult Blood Trace-intact H (NEGATIVE) Urine Nitrite Negative (NEGATIVE) Urine Bilirubin Small H (NEGATIVE) Urine Urobilinogen 1.0 (0.2-1.0) mg/dL Ur Leukocyte Esterase Trace H (NEGATIVE) Urine RBC 0-5 (0-5) /HPF Urine WBC 0-5 (0-5/HPF) /HPF Ur Epithelial Cells Few (NOT SEEN) /HPF Urine Bacteria Rare (0-FEW/HPF) /HPF Urine Opiates Screen Negative (NEGATIVE) Ur Oxycodone Screen Negative (NEGATIVE) Urine Methadone Screen Negative (NEGATIVE) Ur Barbiturates Screen Negative (NEGATIVE) U Tricyclic Antidepress Negative (NEGATIVE) Ur Phencyclidine Scrn Negative (NEGATIVE) Ur Amphetamine Screen Negative (NEGATIVE) U Methamphetamines Scrn Negative (NEGATIVE) Urine MDMA Screen Negative (NEGATIVE) U Benzodiazepines Scrn Positive H (NEGATIVE) Urine Cocaine Screen Negative (NEGATIVE) U Marijuana (THC) Screen Negative (NEGATIVE) Influenza Type A RNA Negative (NEGATIVE) RSV RNA (INAAT) Negative (NEGATIVE) Influenza Type B RNA Negative (NEGATIVE) SARS-CoV-2 RNA (NIC) Negative (NEGATIVE) 01/06/21 01/06/21 Range/Units 06:30 06:30 WBC 12.2 H (5.0-10.0) 10^3/uL RBC 2.12 L (4.6-6.2) 10^6/uL Hgb 7.5 L D (14.0-18.0) g/dL Hct 22.1 L (40.0-54.0) % MCV 104.2 H (80-100) fL MCH 35.4 H (27.0-34.0) pg MCHC 33.9 (33.0-35.0) g/dL Plt Count 47 L* (150-450) 10^3/uL Neut % (Auto) 77.6 H (42.2-75.2) % Lymph % (Auto) 12.9 L (20.5-50.1) % [place] % (Auto) 7.5 (2-8) % Eos % (Auto) 1.7 (1.0-3.0) % Baso % (Auto) 0.3 (0.0-1.0) % Sodium 139 (136-145) mmol/L Potassium 3.5 (3.5-5.1) mmol/L Chloride 105 (98-107) mmol/L Carbon Dioxide 23 (21-32) mmol/L Anion Gap 14.5 H (7-13) mEq/L BUN 8 (7-18) mg/dL Creatinine 1.02 (0.70-1.30) mg/dL Est Cr Clr Drug Dosing 102.45 mL/min Estimated GFR (MDRD) > 60 Glucose 87 (70-99) mg/dL Calcium 8.1 L (8.5-10.1) mg/dL Phosphorus 3.6 (2.6-4.7) mg/dL Magnesium 1.6 L (1.8-2.4) mg/dL Urine Color (YELLOW) Urine Appearance (CLEAR) Urine pH (5.0-9.0) Ur Specific [place] (1.005-1.030) Urine Protein (NEGATIVE) Urine Glucose (UA) (NEGATIVE) Urine Ketones (NEGATIVE) Urine Occult Blood (NEGATIVE) Urine Nitrite (NEGATIVE) Urine Bilirubin (NEGATIVE) Urine Urobilinogen (0.2-1.0) mg/dL Ur Leukocyte Esterase (NEGATIVE) Urine RBC (0-5) /HPF Urine WBC (0-5/HPF) /HPF Ur Epithelial Cells (NOT SEEN) /HPF Urine Bacteria (0-FEW/HPF) /HPF Urine Opiates Screen (NEGATIVE) Ur Oxycodone Screen (NEGATIVE) Urine Methadone Screen (NEGATIVE) Ur Barbiturates Screen (NEGATIVE) U Tricyclic Antidepress (NEGATIVE) Ur Phencyclidine Scrn (NEGATIVE) Ur Amphetamine Screen (NEGATIVE) U Methamphetamines Scrn (NEGATIVE) Urine MDMA Screen (NEGATIVE) U Benzodiazepines Scrn (NEGATIVE) Urine Cocaine Screen (NEGATIVE) U Marijuana (THC) Screen (NEGATIVE) Influenza Type A RNA (NEGATIVE) RSV RNA (INAAT) (NEGATIVE) Influenza Type B RNA (NEGATIVE) SARS-CoV-2 RNA (NIC) (NEGATIVE) Result Diagrams: 01/06/21 06:30 01/06/21 06:30 Sepsis Event Note - Evaluation Sepsis Screening Result: Possible Sepsis Risk - Focused Exam Vital Signs: Vital Signs Temp Pulse Pulse Resp BP BP Pulse Ox 01/06/21 08:43 74 112/58 L 01/06/21 08:00 100.2 F 74 18 112/58 L 99 01/06/21 04:00 99.6 F 84 20 120/68 100 01/06/21 00:00 99.1 F 98 - Problem List & Annotations (1) Delirium SNOMED Code(s): 1853406 Code(s): R41.0 - DISORIENTATION, UNSPECIFIED Status: Acute Current Visit: Yes (2) Alcohol withdrawal syndrome SNOMED Code(s): 536989963 Code(s): F10.239 - ALCOHOL DEPENDENCE WITH WITHDRAWAL, UNSPECIFIED Status: Acute Current Visit: Yes Qualifiers: Complication of substance-induced condition: with unspecified complication Qualified Code(s): F10.239 - Alcohol dependence with withdrawal, unspecified (3) Hallucinations SNOMED Code(s): 9534351 Code(s): R44.3 - HALLUCINATIONS, UNSPECIFIED Status: Acute Current Visit: Yes (4) Total bilirubin, elevated SNOMED Code(s): 267714138338736 Code(s): R17 - UNSPECIFIED JAUNDICE Status: Acute Current Visit: Yes (5) UTI (urinary tract infection) SNOMED Code(s): 18714420 Code(s): N39.0 - URINARY TRACT INFECTION, SITE NOT SPECIFIED Status: Acute Current Visit: Yes Qualifiers: Urinary tract infection type: acute cystitis Hematuria presence: without hematuria Qualified Code(s): N30.00 - Acute cystitis without hematuria (6) HTN (hypertension) SNOMED Code(s): 61609538 Code(s): I10 - ESSENTIAL (PRIMARY) HYPERTENSION Status: Acute Current Visit: No (7) Jaundice due to hepatitis SNOMED Code(s): 17339453 Code(s): K75.9 - INFLAMMATORY LIVER DISEASE, UNSPECIFIED Status: Acute Current Visit: No (8) Portal hypertension SNOMED Code(s): 63737097 Code(s): K76.6 - PORTAL HYPERTENSION Status: Acute Current Visit: No (9) Thrombocytopenia SNOMED Code(s): 918514119 Code(s): D69.6 - THROMBOCYTOPENIA, UNSPECIFIED Status: Acute Current Visit: No - Problem List Review Problem List Initiated/Reviewed/Updated: Yes - My Orders Last 24 Hours: My Active Orders 01/05/21 11:30 OLANZapine [ZyPREXA] 5 mg PO BID Thiamine [Vitamin B-1] 100 mg PO DAILY 01/05/21 11:33 Antiembolic Devices [RC] SCD [Sequential Compression Device] [OM.PC] Routine 01/05/21 11:34 Wound Care [RC] 01/05/21 11:56 LORazepam [Ativan] See Protocol IVPUSH TITRATE PRN LORazepam [Ativan] See Protocol PO TITRATE PRN 01/05/21 12:00 Multivitamins/Minerals [Vitamins and Minerals] 1 tab PO WITHBREAKFAST Piperacillin/Tazobactam [Zosyn] 3.375 gm Sodium Chloride 0.9% [Normal Saline AdvBag] 100 ml IV Q6H 01/05/21 14:00 Lactulose [Cephulac] 10 gm PO TID 01/05/21 15:45 CULTURE URINE [RM] Routine 01/05/21 16:00 CIWAA Assessment [RC] 00,04,08,12,16,20 01/05/21 16:49 Vaccine to be Administered/Admin Charge [RC] ASDIRECTED 01/05/21 18:00 Ferrous Sulfate 325 mg PO BIDMEALS 01/05/21 21:00 Bacitracin [Bacitracin Oint] 0 gm TOP BID Metoprolol Tartrate [Lopressor] 25 mg PO BID 01/05/21 21:59 Blood Culture x2 Reflex Set [OM.PC] Stat 01/05/21 22:15 CULTURE BLOOD [BC] Stat 01/05/21 22:20 CULTURE BLOOD [BC] Stat 01/06/21 00:00 Sodium Chloride 0.9% [Saline Flush] 10 ml FLUSH ASDIRECTED PRN 01/06/21 09:00 Folic Acid 1 mg PO DAILY Pharmacy to Dose - InFluenza V [Pharmacy to Dose - InFluenza Vaccine] 1 each IM DAILY Spironolactone [Aldactone] 25 mg PO DAILY amLODIPine [Norvasc] 5 mg PO DAILY 01/06/21 18:00 Magnesium Oxide 500 mg PO BIDMEALS 01/07/21 05:11 BASIC METABOLIC PANEL,BMP [CHEM] AM CBC WITH AUTO DIFF [HEME] AM 01/08/21 05:11 BASIC METABOLIC PANEL,BMP [CHEM] AM CBC WITH AUTO DIFF [HEME] AM 01/09/21 05:11 BASIC METABOLIC PANEL,BMP [CHEM] AM CBC WITH AUTO DIFF [HEME] AM 01/10/21 05:11 BASIC METABOLIC PANEL,BMP [CHEM] AM CBC WITH AUTO DIFF [HEME] AM 01/11/21 05:11 BASIC METABOLIC PANEL,BMP [CHEM] AM CBC WITH AUTO DIFF [HEME] AM - Plan Plan:: h/o alcohol addiciton, alcohol abuse alcohol addiction consult give thiamine, folate, multivitamin alcohol withdrawal last alcoholic drink: 01/01 symptoms : hallucinations, paranoid behavior, agitation severe on admission much improved continue with ciwa protocol added scheduled zyprexa alcoholic liver cirrhosis portal htn high ammonia severe thrombocytopenia due to portal htn alcoholic hepatitis will follow blood counts started lactulose follow electrolytes replace as needed leukocytosis possible uti Urine cx: pending pneumonia noted on CT - focal and diffuse infiltrates blood cx: pending negative covid x 2 empirical tx with zosyn check echo to eval for source of emboli htn treat with Norvasc, metoprolol diet controlled dm follow fasting am BSs diabetic diet dvt prophylaxis with thrombocytopenia SCDs
[2021-01-07] MEDS: Sodium Chloride 0.9% 10 ML Syringe FLUSH PRN (00:48)
[2021-01-07] MEDS: Piperacillin/Tazobactam 3.375 GM in Sodium Chloride 0.9% 100 ML IV SCH ×4 (00:49→18:15)
[2021-01-07 07:04] LABS: ANION GAP 19.4 mEq/L (7-13); CHLORIDE,CL 109 mmol/L (98-107); SODIUM,NA 146 mmol/L (136-145)
[2021-01-07] MEDS: Multivitamins, Therapeutic with Minerals Tab PO SCH (08:53)
[2021-01-07] MEDS: Ferrous Sulfate 325 MG Tab PO SCH ×2 (08:54→18:16)
[2021-01-07] MEDS: Thiamine 100 MG Tab PO SCH (08:54)
[2021-01-07] MEDS: amLODIPine 5 MG Tab PO SCH (08:56)
[2021-01-07] MEDS: Metoprolol Tartrate 25 MG Tab PO SCH ×2 (08:57→20:49)
[2021-01-07] MEDS: Folic Acid 1 MG Tab PO SCH (08:57)
[2021-01-07] MEDS: Spironolactone 25 MG Tab PO SCH ×2 (08:58→20:49)
[2021-01-07] MEDS: Lactulose Soln 10 GM/15 ML 30 ML UD Cup PO SCH ×3 (08:59→20:51)
[2021-01-07] MEDS ORDERED: Potassium Chloride 10 MEQ Tab.ER PO ONE (11:38)
--- NOTE | 2021-01-07 11:47 | PCM.PN ---
- General Info Date of Service: 01/07/21 Admission Dx/Problem (Free Text): Admission Diagnosis/Problem Admission Diagnosis/Problem Altered mental status Subjective Update: no further hallucinations or paranoid thoughts feeling better alert, appropriate, oriented had cough, low grade temp last afternoon- improved no cp Functional Status: Reports: Tolerating Diet - Review of Systems General: Reports: Fever Pulmonary: Denies: Shortness of Breath Cardiovascular: Denies: Chest Pain, Edema Gastrointestinal: Denies: Abdominal Pain Neurological: Reports: Weakness. Denies: Confusion, Difficulty Walking Psychiatric: Denies: Anxiety, Cravings, Hallucinations, Suicidal Ideation - Patient Data Vitals - Most Recent: Last Vital Signs Temp 98.9 F 01/07/21 08:00 Pulse 85 01/07/21 08:57 Resp 20 01/07/21 08:00 BP 131/63 01/07/21 08:57 Pulse Ox 98 01/07/21 08:00 Weight - Most Recent: 179 lb I&O - Last 24 Hours: Intake & Output 01/06/21 01/07/21 01/07/21 22:59 06:59 14:59 Intake Total 200 195 Output Total 200 200 300 Balance 0 -5 -300 Lab Results Last 24 Hours: Laboratory Results - last 24 hr 01/07/21 01/07/21 01/07/21 Range/Units 06:20 06:20 09:20 WBC 9.6 (5.0-10.0) 10^3/uL RBC 1.89 L (4.6-6.2) 10^6/uL Hgb 6.5 L* (14.0-18.0) g/dL Hct 20.1 L* (40.0-54.0) % MCV 106.3 H (80-100) fL MCH 34.4 H (27.0-34.0) pg MCHC 32.3 L (33.0-35.0) g/dL Plt Count 46 L* (150-450) 10^3/uL Neut % (Auto) 71.5 (42.2-75.2) % Lymph % (Auto) 16.8 L (20.5-50.1) % Dundy % (Auto) 8.2 H (2-8) % Eos % (Auto) 2.9 (1.0-3.0) % Baso % (Auto) 0.6 (0.0-1.0) % Sodium 146 H (136-145) mmol/L Potassium 3.4 L (3.5-5.1) mmol/L Chloride 109 H (98-107) mmol/L Carbon Dioxide 21 (21-32) mmol/L Anion Gap 19.4 H (7-13) mEq/L BUN 8 (7-18) mg/dL Creatinine 1.09 (0.70-1.30) mg/dL Est Cr Clr Drug Dosing 95.87 mL/min Estimated GFR (MDRD) > 60 Glucose 86 (70-99) mg/dL Calcium 7.1 L (8.5-10.1) mg/dL Total Bilirubin 4.7 H (0.2-1.0) mg/dL Direct Bilirubin 3.0 H (0.0-0.2) mg/dL Indirect Bilirubin 1.7 AST 44 H (15-37) U/L ALT 20 (16-63) U/L Alkaline Phosphatase 146 H (46-116) U/L Lactate Dehydrogenase 153 (85-227) U/L Total Protein 7.0 (6.4-8.2) g/dL Albumin 2.7 L (3.4-5.0) g/dL Globulin 4.3 Albumin/Globulin Ratio 0.63 11// Range/Units 09:20 WBC (5.0-10.0) 10^3/uL RBC (4.6-6.2) 10^6/uL Hgb 7.7 L (14.0-18.0) g/dL Hct (40.0-54.0) % MCV (80-100) fL MCH (27.0-34.0) pg MCHC (33.0-35.0) g/dL Plt Count (150-450) 10^3/uL Neut % (Auto) (42.2-75.2) % Lymph % (Auto) (20.5-50.1) % Dundy % (Auto) (2-8) % Eos % (Auto) (1.0-3.0) % Baso % (Auto) (0.0-1.0) % Sodium (136-145) mmol/L Potassium (3.5-5.1) mmol/L Chloride (98-107) mmol/L Carbon Dioxide (21-32) mmol/L Anion Gap (7-13) mEq/L BUN (7-18) mg/dL Creatinine (0.70-1.30) mg/dL Est Cr Clr Drug Dosing mL/min Estimated GFR (MDRD) Glucose (70-99) mg/dL Calcium (8.5-10.1) mg/dL Total Bilirubin (0.2-1.0) mg/dL Direct Bilirubin (0.0-0.2) mg/dL Indirect Bilirubin AST (15-37) U/L ALT (16-63) U/L Alkaline Phosphatase (46-116) U/L Lactate Dehydrogenase (85-227) U/L Total Protein (6.4-8.2) g/dL Albumin (3.4-5.0) g/dL Globulin Albumin/Globulin Ratio Akbar Results Last 24 Hours: Microbiology 01/05/21 15:45 Urine Culture - Preliminary Urine, Clean Catch NO GROWTH AFTER 1 DAY 01/05/21 22:20 Aerobic Blood Culture - Preliminary Blood - Venous - Lab Draw NO GROWTH AFTER 1 DAY Anaerobic Blood Culture - Preliminary NO GROWTH AFTER 1 DAY 01/05/21 22:15 Aerobic Blood Culture - Preliminary Blood - Venous NO GROWTH AFTER 1 DAY Anaerobic Blood Culture - Preliminary NO GROWTH AFTER 1 DAY Med Orders - Current: Current Medications Amlodipine Besylate (Amlodipine 5 Mg Tab) 5 mg PO DAILY [facility] Last Admin: 01/07/21 08:56 Dose: 5 mg Documented by: Bacitracin (Bacitracin Oint 28.35 Gm Tube) 0 gm TOP BID [facility] Last Admin: 01/06/21 22:12 Dose: 1 applic Documented by: Ferrous Sulfate (Ferrous Sulfate 325 Mg Tab) 325 mg PO BIDMEALS [facility] Last Admin: 01/07/21 08:54 Dose: 325 mg Documented by: Folic Acid (Folic Acid 1 Mg Tab) 1 mg PO DAILY [facility] Last Admin: 01/07/21 08:57 Dose: 1 mg Documented by: Piperacillin Sod/Tazobactam (Sod 3.375 gm/ Sodium Chloride) 100 mls @ 200 mls/hr IV Q6H [facility] Last Infusion: 01/07/21 06:30 Dose: Infused Documented by: Influenza Virus Vaccine (Pharmacy To Dose - Influenza Vaccine) 1 each IM DAILY [facility] Last Admin: 01/07/21 10:56 Dose: Not Given Documented by: Lactulose (Lactulose Soln 10 Gm/15 Ml 30 Ml Ud Cup) 10 gm PO TID [facility] Last Admin: 01/07/21 08:59 Dose: 10 gm Documented by: Lorazepam (Lorazepam 2 Mg/Ml Sdv) 0 mg IVPUSH TITRATE PRN; Protocol PRN Reason: ciks protocol Lorazepam (Lorazepam 0.5 Mg Tab) 0 mg PO TITRATE PRN; Protocol PRN Reason: ciwa protocol Magnesium Oxide (Magnesium Oxide 250 Mg Tab) 500 mg PO BIDMEALS [facility] Stop: 01/08/21 08:01 Metoprolol Tartrate (Metoprolol Tartrate 25 Mg Tab) 25 mg PO BID [facility] Last Admin: 01/07/21 08:57 Dose: 25 mg Documented by: Multivitamins/Minerals (Multivitamins, Therapeutic With Minerals Tab) 1 tab PO WITHBREAKFAST [facility] Last Admin: 01/07/21 08:53 Dose: 1 tab Documented by: Sodium Chloride (Sodium Chloride 0.9% 10 Ml Syringe) 10 ml FLUSH ASDIRECTED PRN PRN Reason: IV Use Last Admin: 01/07/21 00:48 Dose: 10 ml Documented by: Spironolactone (Spironolactone 25 Mg Tab) 25 mg PO BID [facility] Thiamine HCl (Thiamine 100 Mg Tab) 100 mg PO DAILY [facility] Last Admin: 01/07/21 08:54 Dose: 100 mg Documented by: Discontinued Medications Bacitracin (Bacitracin Oint 1 Gm U/D Packet) 1 dose TOP ONETIME ONE Stop: 01/05/21 00:14 Last Admin: 01/05/21 00:35 Dose: 1 dose Documented by: Bacitracin (Bacitracin Oint 1 Gm U/D Packet) 1 dose TOP BID ONE Stop: 01/05/21 15:33 Last Admin: 01/05/21 16:53 Dose: Not Given Documented by: Bacitracin (Bacitracin Oint 28.35 Gm Tube) 0 gm TOP ONETIME ONE Stop: 01/05/21 16:31 Last Admin: 01/05/21 16:54 Dose: 1 applic Documented by: Diphenhydramine HCl (Diphenhydramine 50 Mg/Ml Sdv) 25 mg IVPUSH ONETIME ONE Stop: 01/05/21 00:27 Last Admin: 01/05/21 00:35 Dose: 25 mg Documented by: Haloperidol Lactate (Haloperidol Lactate 5 Mg/Ml Sdv) 2.5 mg IM ONETIME ONE Stop: 01/05/21 00:28 Last Admin: 01/05/21 00:43 Dose: 2.5 mg Documented by: Multivitamins/Minerals 10 ml/Folic Acid 1 mg/ Thiamine HCl 100 mg/ Lactated Ringer's 1,011.2 mls @ 500 mls/hr IV ONETIME ONE Stop: 01/05/21 02:11 Last Admin: 01/05/21 00:39 Dose: 500 mls/hr Documented by: Lorazepam (Lorazepam 2 Mg/Ml Sdv) 2 mg IVPUSH ONETIME ONE Stop: 01/04/21 23:52 Last Admin: 01/05/21 00:33 Dose: 2 mg Documented by: Lorazepam (Lorazepam 2 Mg/Ml Sdv) 2 mg IVPUSH ONETIME ONE Stop: 01/05/21 00:59 Last Admin: 01/05/21 01:05 Dose: 2 mg Documented by: Lorazepam (Lorazepam 2 Mg/Ml Sdv) 2 mg IVPUSH ONETIME ONE Stop: 01/05/21 02:57 Last Admin: 01/05/21 03:03 Dose: 2 mg Documented by: Lorazepam (Lorazepam 2 Mg/Ml Sdv) 1 mg IVPUSH ONETIME ONE Stop: 01/05/21 04:41 Last Admin: 01/05/21 05:44 Dose: 1 mg Documented by: Lorazepam (Lorazepam 2 Mg/Ml Sdv) 1 mg IVPUSH Q1H PRN PRN Reason: Agitation Magnesium Oxide (Magnesium Oxide 250 Mg Tab) 500 mg PO BIDMEALS [facility] Stop: 01/07/21 08:01 Last Admin: 01/07/21 08:53 Dose: 500 mg Documented by: Olanzapine (Olanzapine 10 Mg Vial) 5 mg IM ONETIME ONE Stop: 01/05/21 01:38 Last Admin: 01/05/21 01:52 Dose: 5 mg Documented by: Olanzapine (Olanzapine 10 Mg Vial) 55 mg IM ONETIME ONE Stop: 01/05/21 03:19 Last Admin: 01/06/21 17:54 Dose: Not Given Documented by: Olanzapine (Olanzapine 10 Mg Vial) 5 mg IM ONETIME ONE Stop: 01/05/21 03:34 Last Admin: 01/05/21 03:34 Dose: 5 mg Documented by: Olanzapine (Olanzapine 5 Mg Tab) 5 mg PO BID [facility] Last Admin: 01/06/21 22:08 Dose: 5 mg Documented by: Potassium Chloride (Potassium Chloride 10 Meq Tab.Er) 20 meq PO ONETIME ONE Stop: 01/07/21 11:39 Spironolactone (Spironolactone 25 Mg Tab) 25 mg PO DAILY [facility] Last Admin: 01/07/21 08:58 Dose: 25 mg Documented by: - Exam General: Alert, Oriented Neck: Supple Lungs: Clear to Auscultation, Normal Respiratory Effort Cardiovascular: Regular Rate, Regular Rhythm GI/Abdominal Exam: Normal Bowel Sounds, Soft, Non-Tender Extremities: No Pedal Edema - Patient Data Lab Results Last 24 hrs: Laboratory Results - last 24 hr 01/07/21 01/07/21 01/07/21 Range/Units 06:20 06:20 09:20 WBC 9.6 (5.0-10.0) 10^3/uL RBC 1.89 L (4.6-6.2) 10^6/uL Hgb 6.5 L* (14.0-18.0) g/dL Hct 20.1 L* (40.0-54.0) % MCV 106.3 H (80-100) fL MCH 34.4 H (27.0-34.0) pg MCHC 32.3 L (33.0-35.0) g/dL Plt Count 46 L* (150-450) 10^3/uL Neut % (Auto) 71.5 (42.2-75.2) % Lymph % (Auto) 16.8 L (20.5-50.1) % Dundy % (Auto) 8.2 H (2-8) % Eos % (Auto) 2.9 (1.0-3.0) % Baso % (Auto) 0.6 (0.0-1.0) % Sodium 146 H (136-145) mmol/L Potassium 3.4 L (3.5-5.1) mmol/L Chloride 109 H (98-107) mmol/L Carbon Dioxide 21 (21-32) mmol/L Anion Gap 19.4 H (7-13) mEq/L BUN 8 (7-18) mg/dL Creatinine 1.09 (0.70-1.30) mg/dL Est Cr Clr Drug Dosing 95.87 mL/min Estimated GFR (MDRD) > 60 Glucose 86 (70-99) mg/dL Calcium 7.1 L (8.5-10.1) mg/dL Total Bilirubin 4.7 H (0.2-1.0) mg/dL Direct Bilirubin 3.0 H (0.0-0.2) mg/dL Indirect Bilirubin 1.7 AST 44 H (15-37) U/L ALT 20 (16-63) U/L Alkaline Phosphatase 146 H (46-116) U/L Lactate Dehydrogenase 153 (85-227) U/L Total Protein 7.0 (6.4-8.2) g/dL Albumin 2.7 L (3.4-5.0) g/dL Globulin 4.3 Albumin/Globulin Ratio 0.63 // Range/Units 09:20 WBC (5.0-10.0) 10^3/uL RBC (4.6-6.2) 10^6/uL Hgb 7.7 L (14.0-18.0) g/dL Hct (40.0-54.0) % MCV (80-100) fL MCH (27.0-34.0) pg MCHC (33.0-35.0) g/dL Plt Count (150-450) 10^3/uL Neut % (Auto) (42.2-75.2) % Lymph % (Auto) (20.5-50.1) % Dundy % (Auto) (2-8) % Eos % (Auto) (1.0-3.0) % Baso % (Auto) (0.0-1.0) % Sodium (136-145) mmol/L Potassium (3.5-5.1) mmol/L Chloride (98-107) mmol/L Carbon Dioxide (21-32) mmol/L Anion Gap (7-13) mEq/L BUN (7-18) mg/dL Creatinine (0.70-1.30) mg/dL Est Cr Clr Drug Dosing mL/min Estimated GFR (MDRD) Glucose (70-99) mg/dL Calcium (8.5-10.1) mg/dL Total Bilirubin (0.2-1.0) mg/dL Direct Bilirubin (0.0-0.2) mg/dL Indirect Bilirubin AST (15-37) U/L ALT (16-63) U/L Alkaline Phosphatase (46-116) U/L Lactate Dehydrogenase (85-227) U/L Total Protein (6.4-8.2) g/dL Albumin (3.4-5.0) g/dL Globulin Albumin/Globulin Ratio Result Diagrams: 01/07/21 09:20 01/07/21 06:20 Akbar Results Last 24 hrs: Microbiology 01/05/21 15:45 Urine Culture - Preliminary Urine, Clean Catch NO GROWTH AFTER 1 DAY 01/05/21 22:20 Aerobic Blood Culture - Preliminary Blood - Venous - Lab Draw NO GROWTH AFTER 1 DAY Anaerobic Blood Culture - Preliminary NO GROWTH AFTER 1 DAY 01/05/21 22:15 Aerobic Blood Culture - Preliminary Blood - Venous NO GROWTH AFTER 1 DAY Anaerobic Blood Culture - Preliminary NO GROWTH AFTER 1 DAY Sepsis Event Note - Evaluation Sepsis Screening Result: Possible Sepsis Risk - Focused Exam Vital Signs: Vital Signs Temp Pulse Pulse Resp BP BP Pulse Ox 01/07/21 08:57 85 131/63 01/07/21 08:56 131/63 01/07/21 08:00 98.9 F 85 20 131/63 98 01/07/21 00:00 99.2 F 83 20 119/58 L 97 - Problem List & Annotations (1) Delirium SNOMED Code(s): 6290031 Code(s): R41.0 - DISORIENTATION, UNSPECIFIED Status: Acute Current Visit: Yes (2) Alcohol withdrawal syndrome SNOMED Code(s): 788155026 Code(s): F10.239 - ALCOHOL DEPENDENCE WITH WITHDRAWAL, UNSPECIFIED Status: Acute Current Visit: Yes Qualifiers: Complication of substance-induced condition: with unspecified complication Qualified Code(s): F10.239 - Alcohol dependence with withdrawal, unspecified (3) Hallucinations SNOMED Code(s): 2327327 Code(s): R44.3 - HALLUCINATIONS, UNSPECIFIED Status: Acute Current Visit: Yes (4) Total bilirubin, elevated SNOMED Code(s): 172878082975704 Code(s): R17 - UNSPECIFIED JAUNDICE Status: Acute Current Visit: Yes (5) UTI (urinary tract infection) SNOMED Code(s): 70850055 Code(s): N39.0 - URINARY TRACT INFECTION, SITE NOT SPECIFIED Status: Acute Current Visit: Yes Qualifiers: Urinary tract infection type: acute cystitis Hematuria presence: without hematuria Qualified Code(s): N30.00 - Acute cystitis without hematuria (6) HTN (hypertension) SNOMED Code(s): 95849835 Code(s): I10 - ESSENTIAL (PRIMARY) HYPERTENSION Status: Acute Current Visit: No (7) Jaundice due to hepatitis SNOMED Code(s): 85941878 Code(s): K75.9 - INFLAMMATORY LIVER DISEASE, UNSPECIFIED Status: Acute Current Visit: No (8) Portal hypertension SNOMED Code(s): 46440614 Code(s): K76.6 - PORTAL HYPERTENSION Status: Acute Current Visit: No (9) Thrombocytopenia SNOMED Code(s): 222505433 Code(s): D69.6 - THROMBOCYTOPENIA, UNSPECIFIED Status: Acute Current Visit: No - Problem List Review Problem List Initiated/Reviewed/Updated: Yes - My Orders Last 24 Hours: My Active Orders 01/06/21 11:55 Echo Comp wo Cont [US] Routine 01/07/21 06:20 DIRECT CHARO [BBK] Routine TYPE AND SCREEN [BBK] Routine 01/07/21 09:20 BLOOD SMEARS TO PATHOLOGIST [REF] Routine HAPTOGLOBIN [REF] Routine RETICULOCYTE COUNT [HEME] Routine 01/07/21 16:00 CBC WITH AUTO DIFF [HEME] Timed 01/07/21 18:00 Magnesium Oxide 500 mg PO BIDMEALS 01/07/21 21:00 Spironolactone [Aldactone] 25 mg PO BID 01/08/21 05:11 BASIC METABOLIC PANEL,BMP [CHEM] AM CBC WITH AUTO DIFF [HEME] AM 01/09/21 05:11 BASIC METABOLIC PANEL,BMP [CHEM] AM CBC WITH AUTO DIFF [HEME] AM 01/10/21 05:11 BASIC METABOLIC PANEL,BMP [CHEM] AM CBC WITH AUTO DIFF [HEME] AM 01/11/21 05:11 BASIC METABOLIC PANEL,BMP [CHEM] AM CBC WITH AUTO DIFF [HEME] AM - Plan Plan:: h/o alcohol addiciton, alcohol abuse alcohol addiction consult Sw give thiamine, folate, multivitamin alcohol withdrawal last alcoholic drink: 01/01 symptoms : hallucinations, paranoid behavior, agitation severe on admission much improved - resolved continue with ciwa protocol asneeded stop zyprexa alcoholic liver cirrhosis portal htn with elevated ammonia severe thrombocytopenia due to portal htn alcoholic hepatitis will follow blood counts started lactulose follow electrolytes hypokalemia replace as needed increase spironolactone leukocytosis possible uti Urine cx: pending pneumonia noted on CT - focal and diffuse infiltrates blood cx: pending negative covid x 2 empirical tx with zosyn echo: per tech: no apparent source of emboli htn treat with Norvasc, metoprolol diet controlled dm follow fasting am BSs diabetic diet anemia with drop in hgb recently elevated bilirubin that quickly improved no apparent bleeding likely cause is hemolysis further drop in hgb noted this am bilirubin is not high, ldh normal, repeat hgb is similar to yesterday -pending periph smear, retic count, haptoglobin - likely an incorrect lab result will repeat hgb this afternoon and in am discussed the potential need / risks / benefits of blood tx with pt - hold tx for now until repeat labs dvt prophylaxis with thrombocytopenia SCDs
[2021-01-07] MEDS: Bacitracin Oint 28.35 GM Tube TOP SCH ×2 (13:01→20:51)
[2021-01-08] MEDS: Piperacillin/Tazobactam 3.375 GM in Sodium Chloride 0.9% 100 ML IV SCH ×3 (00:18→14:45)
[2021-01-08 07:43] LABS: ANION GAP 12.2 mEq/L (7-13); CHLORIDE,CL 104 mmol/L (98-107); SODIUM,NA 135 mmol/L (136-145)
[2021-01-08] MEDS: Lactulose Soln 10 GM/15 ML 30 ML UD Cup PO SCH (09:32)
[2021-01-08] MEDS: Metoprolol Tartrate 25 MG Tab PO SCH (09:33)
[2021-01-08] MEDS: Folic Acid 1 MG Tab PO SCH (09:33)
[2021-01-08] MEDS: amLODIPine 5 MG Tab PO SCH (09:33)
[2021-01-08] MEDS: Multivitamins, Therapeutic with Minerals Tab PO SCH (09:33)
[2021-01-08] MEDS: Ferrous Sulfate 325 MG Tab PO SCH (09:33)
[2021-01-08] MEDS: Thiamine 100 MG Tab PO SCH (09:34)
[2021-01-08] MEDS: Spironolactone 25 MG Tab PO SCH (09:34)
--- NOTE | 2021-01-08 11:53 | PCM.DCSUM1 ---
Discharge Summary - Hospital Course Free Text/Narrative:: h/o alcohol addiciton, alcohol abuse presented with confusion, delirium alcohol addiction consult Sw give thiamine, folate, multivitamin plan for f/up on Saturday for treatment program eval alcohol withdrawal last alcoholic drink: 01/01 symptoms : hallucinations, paranoid behavior, agitation severe on admission resolved alcoholic liver cirrhosis portal htn with elevated ammonia severe thrombocytopenia due to portal htn alcoholic hepatitis will follow blood counts periodically started lactulose follow electrolytes hypokalemia cont spironolactone leukocytosis no apparent uti - Urine cx: ng pneumonia noted on CT - focal and diffuse infiltrates blood cx: pending - neg for now negative covid x 2 empirical tx-ed with zosyn echo: per tech: no apparent source of emboli cont Augmentin htn treat with Norvasc, metoprolol diet controlled dm diabetic diet anemia with drop in hgb recently elevated bilirubin that quickly improved no apparent bleeding likely cause is hemolysis no further drop in hgb follow as out pt dvt prophylaxis with thrombocytopenia SCDs Diagnosis: Stroke: No - Discharge Data Discharge Date: 01/08/21 Discharge Disposition: Home, Self-Care 01 Condition: Good - Referral to Home Health Primary Care Physician: PCP None - Discharge Diagnosis/Problem(s) (1) Delirium SNOMED Code(s): 1534421 ICD Code: R41.0 - DISORIENTATION, UNSPECIFIED Status: Acute Current Visit: Yes (2) Alcohol withdrawal syndrome SNOMED Code(s): 644058053 ICD Code: F10.239 - ALCOHOL DEPENDENCE WITH WITHDRAWAL, UNSPECIFIED Status: Acute Current Visit: Yes Qualifiers: Complication of substance-induced condition: with unspecified complication Qualified Code(s): F10.239 - Alcohol dependence with withdrawal, unspecified (3) Hallucinations SNOMED Code(s): 8965678 ICD Code: R44.3 - HALLUCINATIONS, UNSPECIFIED Status: Acute Current Visit: Yes (4) Total bilirubin, elevated SNOMED Code(s): 104599849662509 ICD Code: R17 - UNSPECIFIED JAUNDICE Status: Acute Current Visit: Yes (5) UTI (urinary tract infection) SNOMED Code(s): 02165276 ICD Code: N39.0 - URINARY TRACT INFECTION, SITE NOT SPECIFIED Status: Acute Current Visit: Yes Qualifiers: Urinary tract infection type: acute cystitis Hematuria presence: without hematuria Qualified Code(s): N30.00 - Acute cystitis without hematuria (6) HTN (hypertension) SNOMED Code(s): 74054287 ICD Code: I10 - ESSENTIAL (PRIMARY) HYPERTENSION Status: Acute Current Visit: No (7) Jaundice due to hepatitis SNOMED Code(s): 95332619 ICD Code: K75.9 - INFLAMMATORY LIVER DISEASE, UNSPECIFIED Status: Acute Current Visit: No (8) Portal hypertension SNOMED Code(s): 75298910 ICD Code: K76.6 - PORTAL HYPERTENSION Status: Acute Current Visit: No (9) Thrombocytopenia SNOMED Code(s): 328960191 ICD Code: D69.6 - THROMBOCYTOPENIA, UNSPECIFIED Status: Acute Current Visit: No - Patient Instructions Diet: Usual Diet as Tolerated Activity: As Tolerated - Discharge Plan *PRESCRIPTION DRUG MONITORING PROGRAM REVIEWED*: No *COPY OF PRESCRIPTION DRUG MONITORING REPORT IN PATIENT GERARDO: No Prescriptions/Med Rec: Amoxicillin/Clavulanate K [Augmentin 500-125 MG] 1 tab PO TID #30 tab Bacitracin [Bacitracin Oint] 1 gm TOP BID #1 tube Lactulose [Chronulac] 10 gm PO TID #250 ml Ferrous Sulfate 325 mg PO DAILY #30 tab Folic Acid 1 mg PO DAILY #30 tab Magnesium Oxide 500 mg PO BIDMEALS #60 tablet Metoprolol Tartrate 25 mg PO BID #60 tab amLODIPine [Norvasc] 5 mg PO DAILY #30 tab Thiamine [Vitamin B-1] 100 mg PO DAILY #30 tab Multivitamins/Minerals [Vitamins and Minerals] 1 tab PO WITHBREAKFAST #30 tablet Home Medications: Home Meds Amoxicillin/Clavulanate K [Augmentin 500-125 MG] 1 tab PO TID #30 tab 01/06/21 [Rx] Bacitracin [Bacitracin Oint] 1 gm TOP BID #1 tube 01/06/21 [Rx] Ferrous Sulfate 325 mg PO DAILY #30 tab 01/06/21 [Rx] Folic Acid 1 mg PO DAILY #30 tab 01/06/21 [Rx] Lactulose [Chronulac] 10 gm PO TID #250 ml 01/06/21 [Rx] Magnesium Oxide 500 mg PO BIDMEALS #60 tablet 01/06/21 [Rx] Metoprolol Tartrate 25 mg PO BID #60 tab 01/06/21 [Rx] Multivitamins/Minerals [Vitamins and Minerals] 1 tab PO WITHBREAKFAST #30 tablet 01/06/21 [Rx] Thiamine [Vitamin B-1] 100 mg PO DAILY #30 tab 01/06/21 [Rx] amLODIPine [Norvasc] 5 mg PO DAILY #30 tab 01/06/21 [Rx] Spironolactone [Aldactone] 25 mg PO BID #0 tablet 01/08/21 [Rx] Oxygen Therapy Mode: Room Air Forms: ED Department Discharge Referrals: Bar Woodard, ASSOCIATE MANAGER [Ordering Only Provider] - (in 2-3 days) - Discharge Summary/Plan Comment DC Time >30 min.: No Total # of Minutes for Discharge Time: 20 min - General Info Date of Service: 01/08/21 - Review of Systems General: Reports: Weakness. Denies: Fever Pulmonary: Denies: Shortness of Breath Cardiovascular: Denies: Chest Pain, Edema Gastrointestinal: Denies: Abdominal Pain Neurological: Denies: Confusion - Patient Data Vitals - Most Recent: Last Vital Signs Temp 98.1 F 01/08/21 08:27 Pulse 77 01/08/21 09:33 Resp 20 01/08/21 08:27 BP 120/59 L 01/08/21 09:33 Pulse Ox 100 01/08/21 08:27 Weight - Most Recent: 179 lb I&O - Last 24 hours: Intake & Output 01/07/21 01/08/21 01/08/21 22:59 06:59 14:59 Intake Total 600 250 237 Output Total 400 550 Balance 200 -300 237 Lab Results - Last 24 hrs: Laboratory Results - last 24 hr 01/07/21 01/07/21 01/07/21 Range/Units 06:20 06:20 09:20 WBC (5.0-10.0) 10^3/uL RBC (4.6-6.2) 10^6/uL Hgb (14.0-18.0) g/dL Hct (40.0-54.0) % MCV (80-100) fL MCH (27.0-34.0) pg MCHC (33.0-35.0) g/dL Plt Count (150-450) 10^3/uL Neut % (Auto) (42.2-75.2) % Lymph % (Auto) (20.5-50.1) % [place] % (Auto) (2-8) % Eos % (Auto) (1.0-3.0) % Baso % (Auto) (0.0-1.0) % Percent Retic 6 H (0.5-1.5) % Sodium (136-145) mmol/L Potassium (3.5-5.1) mmol/L Chloride (98-107) mmol/L Carbon Dioxide (21-32) mmol/L Anion Gap (7-13) mEq/L BUN (7-18) mg/dL Creatinine (0.70-1.30) mg/dL Est Cr Clr Drug Dosing mL/min Estimated GFR (MDRD) Glucose (70-99) mg/dL Calcium (8.5-10.1) mg/dL Blood Type O POSITIVE Gel Antibody Screen Negative Direct [facility] Gel w ERA Positive 01/07/21 01/08/21 01/08/21 Range/Units 16:50 05:35 05:35 WBC 12.0 H 10.5 H (5.0-10.0) 10^3/uL RBC 2.08 L 2.15 L (4.6-6.2) 10^6/uL Hgb 7.4 L 7.6 L (14.0-18.0) g/dL Hct 22.0 L 22.8 L (40.0-54.0) % MCV 105.8 H 106.0 H (80-100) fL MCH 35.6 H 35.3 H (27.0-34.0) pg MCHC 33.6 33.3 (33.0-35.0) g/dL Plt Count 61 L 68 L (150-450) 10^3/uL Neut % (Auto) 72.9 69.2 (42.2-75.2) % Lymph % (Auto) 15.5 L 16.5 L (20.5-50.1) % [place] % (Auto) 8.7 H 10.3 H (2-8) % Eos % (Auto) 2.4 3.3 H (1.0-3.0) % Baso % (Auto) 0.5 0.7 (0.0-1.0) % Percent Retic (0.5-1.5) % Sodium 135 L D (136-145) mmol/L Potassium 4.2 (3.5-5.1) mmol/L Chloride 104 (98-107) mmol/L Carbon Dioxide 23 (21-32) mmol/L Anion Gap 12.2 (7-13) mEq/L BUN 7 (7-18) mg/dL Creatinine 0.94 (0.70-1.30) mg/dL Est Cr Clr Drug Dosing 111.17 mL/min Estimated GFR (MDRD) > 60 Glucose 93 (70-99) mg/dL Calcium 8.2 L (8.5-10.1) mg/dL Blood Type Gel Antibody Screen Direct [facility] Gel w ERA NIKITA Results - Last 24 hrs: Microbiology 01/05/21 15:45 Urine Culture - Final Urine, Clean Catch NO GROWTH AFTER 2 DAYS 01/05/21 22:20 Aerobic Blood Culture - Preliminary Blood - Venous - Lab Draw NO GROWTH AFTER 2 DAYS Anaerobic Blood Culture - Preliminary NO GROWTH AFTER 2 DAYS 01/05/21 22:15 Aerobic Blood Culture - Preliminary Blood - Venous NO GROWTH AFTER 2 DAYS Anaerobic Blood Culture - Preliminary NO GROWTH AFTER 2 DAYS Med Orders - Current: Current Medications Amlodipine Besylate (Amlodipine 5 Mg Tab) 5 mg PO DAILY [facility] Last Admin: 01/08/21 09:33 Dose: 5 mg Documented by: Bacitracin (Bacitracin Oint 28.35 Gm Tube) 0 gm TOP BID [facility] Last Admin: 01/07/21 20:51 Dose: 1 applic Documented by: Ferrous Sulfate (Ferrous Sulfate 325 Mg Tab) 325 mg PO BIDMEALS [facility] Last Admin: 01/08/21 09:33 Dose: 325 mg Documented by: Folic Acid (Folic Acid 1 Mg Tab) 1 mg PO DAILY [facility] Last Admin: 01/08/21 09:33 Dose: 1 mg Documented by: Piperacillin Sod/Tazobactam (Sod 3.375 gm/ Sodium Chloride) 100 mls @ 200 mls/hr IV Q6H [facility] Last Admin: 01/08/21 05:58 Dose: 200 mls/hr Documented by: Influenza Virus Vaccine (Pharmacy To Dose - Influenza Vaccine) 1 each IM DAILY [facility] Last Admin: 01/08/21 09:34 Dose: Not Given Documented by: Lactulose (Lactulose Soln 10 Gm/15 Ml 30 Ml Ud Cup) 10 gm PO TID [facility] Last Admin: 01/08/21 09:32 Dose: 10 gm Documented by: Lorazepam (Lorazepam 2 Mg/Ml Sdv) 0 mg IVPUSH TITRATE PRN; Protocol PRN Reason: [facility] protocol Lorazepam (Lorazepam 0.5 Mg Tab) 0 mg PO TITRATE PRN; Protocol PRN Reason: [facility] protocol Metoprolol Tartrate (Metoprolol Tartrate 25 Mg Tab) 25 mg PO BID [facility] Last Admin: 01/08/21 09:33 Dose: 25 mg Documented by: Multivitamins/Minerals (Multivitamins, Therapeutic With Minerals Tab) 1 tab PO WITHBREAKFAST [facility] Last Admin: 01/08/21 09:33 Dose: 1 tab Documented by: Sodium Chloride (Sodium Chloride 0.9% 10 Ml Syringe) 10 ml FLUSH ASDIRECTED PRN PRN Reason: IV Use Last Admin: 01/07/21 00:48 Dose: 10 ml Documented by: Spironolactone (Spironolactone 25 Mg Tab) 25 mg PO BID [facility] Last Admin: 01/08/21 09:34 Dose: 25 mg Documented by: Thiamine HCl (Thiamine 100 Mg Tab) 100 mg PO DAILY [facility] Last Admin: 01/08/21 09:34 Dose: 100 mg Documented by: Discontinued Medications Bacitracin (Bacitracin Oint 1 Gm U/D Packet) 1 dose TOP ONETIME ONE Stop: 01/05/21 00:14 Last Admin: 01/05/21 00:35 Dose: 1 dose Documented by: Bacitracin (Bacitracin Oint 1 Gm U/D Packet) 1 dose TOP BID ONE Stop: 01/05/21 15:33 Last Admin: 01/05/21 16:53 Dose: Not Given Documented by: Bacitracin (Bacitracin Oint 28.35 Gm Tube) 0 gm TOP ONETIME ONE Stop: 01/05/21 16:31 Last Admin: 01/05/21 16:54 Dose: 1 applic Documented by: Diphenhydramine HCl (Diphenhydramine 50 Mg/Ml Sdv) 25 mg IVPUSH ONETIME ONE Stop: 01/05/21 00:27 Last Admin: 01/05/21 00:35 Dose: 25 mg Documented by: Haloperidol Lactate (Haloperidol Lactate 5 Mg/Ml Sdv) 2.5 mg IM ONETIME ONE Stop: 01/05/21 00:28 Last Admin: 01/05/21 00:43 Dose: 2.5 mg Documented by: Multivitamins/Minerals 10 ml/Folic Acid 1 mg/ Thiamine HCl 100 mg/ Lactated Ringer's 1,011.2 mls @ 500 mls/hr IV ONETIME ONE Stop: 01/05/21 02:11 Last Admin: 01/05/21 00:39 Dose: 500 mls/hr Documented by: Lorazepam (Lorazepam 2 Mg/Ml Sdv) 2 mg IVPUSH ONETIME ONE Stop: 01/04/21 23:52 Last Admin: 01/05/21 00:33 Dose: 2 mg Documented by: Lorazepam (Lorazepam 2 Mg/Ml Sdv) 2 mg IVPUSH ONETIME ONE Stop: 01/05/21 00:59 Last Admin: 01/05/21 01:05 Dose: 2 mg Documented by: Lorazepam (Lorazepam 2 Mg/Ml Sdv) 2 mg IVPUSH ONETIME ONE Stop: 01/05/21 02:57 Last Admin: 01/05/21 03:03 Dose: 2 mg Documented by: Lorazepam (Lorazepam 2 Mg/Ml Sdv) 1 mg IVPUSH ONETIME ONE Stop: 01/05/21 04:41 Last Admin: 01/05/21 05:44 Dose: 1 mg Documented by: Lorazepam (Lorazepam 2 Mg/Ml Sdv) 1 mg IVPUSH Q1H PRN PRN Reason: Agitation Magnesium Oxide (Magnesium Oxide 250 Mg Tab) 500 mg PO BIDMEALS [facility] Stop: 01/07/21 08:01 Last Admin: 01/07/21 08:53 Dose: 500 mg Documented by: Magnesium Oxide (Magnesium Oxide 250 Mg Tab) 500 mg PO BIDMEALS [facility] Stop: 01/08/21 08:01 Last Admin: 01/08/21 09:33 Dose: 500 mg Documented by: Olanzapine (Olanzapine 10 Mg Vial) 5 mg IM ONETIME ONE Stop: 01/05/21 01:38 Last Admin: 01/05/21 01:52 Dose: 5 mg Documented by: Olanzapine (Olanzapine 10 Mg Vial) 55 mg IM ONETIME ONE Stop: 01/05/21 03:19 Last Admin: 01/06/21 17:54 Dose: Not Given Documented by: Olanzapine (Olanzapine 10 Mg Vial) 5 mg IM ONETIME ONE Stop: 01/05/21 03:34 Last Admin: 01/05/21 03:34 Dose: 5 mg Documented by: Olanzapine (Olanzapine 5 Mg Tab) 5 mg PO BID [facility] Last Admin: 01/06/21 22:08 Dose: 5 mg Documented by: Potassium Chloride (Potassium Chloride 10 Meq Tab.Er) 20 meq PO ONETIME ONE Stop: 01/07/21 11:39 Last Admin: 01/07/21 12:22 Dose: 20 meq Documented by: Spironolactone (Spironolactone 25 Mg Tab) 25 mg PO DAILY [facility] Last Admin: 01/07/21 08:58 Dose: 25 mg Documented by: - Exam General: Reports: Alert, Oriented Neck: Reports: Supple Lungs: Reports: Clear to Auscultation, Normal Respiratory Effort Cardiovascular: Reports: Regular Rate, Regular Rhythm GI/Abdominal Exam: Normal Bowel Sounds, Soft, Non-Tender Skin: Reports: Warm Neurological: Reports: No New Focal Deficit Psy/Mental Status: Reports: Alert, Normal Affect, Normal Mood
[2021-01-08] MEDS: Bacitracin Oint 28.35 GM Tube TOP SCH (12:49)
== END 2021-01-08 12:58 | disposition home or self-care (01) | DRG 896 ==
LOC: DL.ED 23:43 → DL.MS 01-05 06:07
PROVIDERS: ADMIT Internal Medicine; ATTEND Internal Medicine
DX: F10.239 Alcohol dependence with withdrawal, unspecified (principal); J18.9 Pneumonia, unspecified organism; K76.6 Portal hypertension; N30.00 Acute cystitis without hematuria; R44.3 Hallucinations, unspecified; K70.30 Alcoholic cirrhosis of liver without ascites; F10.288 Alcohol dependence with other alcohol-induced disorder; D69.59 Other secondary thrombocytopenia; Z20.822 Contact with and (suspected) exposure to COVID-19; K70.10 Alcoholic hepatitis without ascites; E87.6 Hypokalemia; I10 Essential (primary) hypertension; D64.9 Anemia, unspecified; K75.9 Inflammatory liver disease, unspecified; E11.9 Type 2 diabetes mellitus without complications; K76.0 Fatty (change of) liver, not elsewhere classified; Z28.82 Immunization not carried out because of caregiver refusal; Z79.899 Other long term (current) drug therapy
CPT/HCPCS: 0241U; 36415; 70450; 71045; 71250; 80048; 80053; 80076; 80305-QW; 80307; 81001; 82140; 83010; 83615; 83735; 84100; 85018; 85025; 85045; 86850; 86880; 86900; 86901; 87040; 87086; 93306; 96365; 96366; 96372; 96375; 96376; 99285-25; A9270-GY; J1200; J1630; J2060; J2543; J3411; J3490; J7120

== ENCOUNTER 2021-04-10 16:52 | Inpatient (IN) | payer MEDICAID ==
[2021-04-10 19:36] LABS: ANION GAP 14.7 mEq/L (7-13); CHLORIDE,CL 107 mmol/L (98-107); SODIUM,NA 142 mmol/L (136-145)
[2021-04-10] MEDS ORDERED: Octreotide 100 MCG in Sodium Chloride 0.9% 100 ML IV ONE (19:57)
[2021-04-10] MEDS ORDERED: Pantoprazole 40 MG Vial IVPUSH ONE (19:57)
[2021-04-10] MEDS ORDERED: Benzonatate 100 MG Cap PO ONE (19:57)
[2021-04-10 20:06] LABS: AMPHETAMINES,URINE NEGATIVE (NEGATIVE); BARBITURATES,URINE NEGATIVE (NEGATIVE); BENZODIAZEPINE,URINE NEGATIVE (NEGATIVE); MDMA (ECSTASY), URINE NEGATIVE (NEGATIVE); METHADONE,URINE NEGATIVE (NEGATIVE); METHAMPHETAMINES,URINE NEGATIVE (NEGATIVE); OPIATES,URINE NEGATIVE (NEGATIVE); OXYCODONE,URINE NEGATIVE (NEGATIVE); PHENCYCLIDINE,URINE NEGATIVE (NEGATIVE); TCA,URINE NEGATIVE (NEGATIVE)
[2021-04-10] MEDS ORDERED: Iopamidol 755 Mg/ML 100 ML Bottle IVPUSH ONE (20:22)
[2021-04-10] MEDS ORDERED: cefTRIAXone 1 GM in Sodium Chloride 0.9% 50 ML IV ONE (20:23)
[2021-04-10] MEDS ORDERED: Sodium Chloride 0.9% 500 ML IV SCH (20:30)
[2021-04-10] MEDS ORDERED: Sodium Chloride 0.9% 1,000 ML IV SCH (21:00)
[2021-04-10] MEDS ORDERED: Metoprolol Tartrate 5 MG/5 ML SDV IVPUSH ONE ×2 (21:25→22:26)
[2021-04-10] MEDS ORDERED: Tranexamic Acid 1,000 MG in Sodium Chloride 0.9% 100 ML IV ONE (22:52)
[2021-04-10] MEDS ORDERED: Ondansetron 4 MG/2 ML SDV ONE (23:00)
[2021-04-10] MEDS ORDERED: Ondansetron 4 MG/2 ML SDV IVPUSH ONE (23:12)
[2021-04-11] MEDS ORDERED: Metoclopramide 10 MG/2 ML SDV IVPUSH ONE (00:03)
[2021-04-11] MEDS ORDERED: LORazepam 2 MG/ML SDV IVPUSH ONE (00:12)
[2021-04-11] MEDS ORDERED: Albuterol/Ipratropium 3.0-0.5 MG/3 ML Neb Soln NEB PRN (01:28)
[2021-04-11] MEDS ORDERED: MVI, Adult with Vitamin K 10 ML, Folic Acid 1 MG, Thiamine 100 MG in Lactated Ringers 1... IV ONE ×4 (01:28)
[2021-04-11] MEDS ORDERED: Zolpidem 5 MG Tab PO PRN (01:28)
[2021-04-11] MEDS ORDERED: Ondansetron 4 MG/2 ML SDV IVPUSH PRN (01:28)
[2021-04-11] MEDS ORDERED: HYDROmorphone 0.5 MG/0.5 ML Syringe IVPUSH PRN (01:28)
[2021-04-11] MEDS ORDERED: Thiamine 100 MG in Sodium Chloride 0.9% 50 ML IV ONE (01:28)
[2021-04-11] MEDS ORDERED: Haloperidol Lactate 5 MG/ML SDV IM PRN (01:28)
[2021-04-11] MEDS ORDERED: cloNIDine 0.1 MG Tab PO PRN (01:28)
[2021-04-11] MEDS ORDERED: Polyethylene Glycol 3350 Powder 17 GM Packet PO PRN (01:28)
[2021-04-11] MEDS ORDERED: guaiFENesin/Dextromethorphan 100-10 MG/5 ML Soln 5 ML Cup PO PRN (01:57)
[2021-04-11] MEDS ORDERED: hydrALAZINE 20 MG/ML SDV IVPUSH PRN (02:03)
[2021-04-11] MEDS ORDERED: Levofloxacin/Dextrose 5%-Water 750 MG in Premix Bag 1 BAG IV ONE (02:04)
[2021-04-11] MEDS ORDERED: Metoprolol Tartrate 5 MG/5 ML SDV IVPUSH PRN (02:04)
[2021-04-11] MEDS ORDERED: Folic Acid 50 MG/10 ML MDV ONE (02:13)
[2021-04-11] MEDS ORDERED: Phytonadione 1 MG/0.5 ML Syringe SUBCUT ONE (02:17)
[2021-04-11] MEDS: Pantoprazole 80 MG in Sodium Chloride 0.9% 100 ML IV SCH ×2 (02:35→11:26)
[2021-04-11] MEDS: Octreotide 100 MCG in Sodium Chloride 0.9% 99 ML IV SCH ×2 (02:40→11:09)
[2021-04-11 07:07] LABS: ANION GAP 18.1 mEq/L (7-13); CHLORIDE,CL 107 mmol/L (98-107); SODIUM,NA 142 mmol/L (136-145)
[2021-04-11] MEDS ORDERED: Magnesium Sulfate/Water 4 GM in Premix Bag 1 BAG IV ONE (07:41)
[2021-04-11] MEDS ORDERED: MVI, Adult with Vitamin K 10 ML SDV IV SCH (09:00)
[2021-04-11] MEDS ORDERED: MVI, Adult with Vitamin K 10 ML in Lactated Ringers 1,000 ML IV SCH ×2 (09:00)
[2021-04-12] MEDS ORDERED: Thiamine 100 MG in Sodium Chloride 0.9% 50 ML IV SCH (09:00)
[2021-04-12] MEDS ORDERED: Folic Acid 1 MG Tab PO SCH (09:00)
[2021-04-12] MEDS ORDERED: Levofloxacin/Dextrose 5%-Water 750 MG in Premix Bag 1 BAG IV SCH (09:00)
== END 2021-04-11 12:52 | DRG 379 ==
LOC: DL.ED 16:52 → UNDOADMIN 04-11 00:59 → DL.MS 04-11 00:59
PROVIDERS: ADMIT Internal Medicine; ATTEND Internal Medicine
PROC: 30233K1 Transfusion of Nonautologous Frozen Plasma into Peripheral Vein, Percutaneous Approach (ICD-10-PCS; principal; 2021-04-11)
PROC: 30233N1 Transfusion of Nonautologous Red Blood Cells into Peripheral Vein, Percutaneous Approach (ICD-10-PCS; 2021-04-11)
DX: K92.2 Gastrointestinal hemorrhage, unspecified (principal); H54.7 Unspecified visual loss; I10 Essential (primary) hypertension; K70.30 Alcoholic cirrhosis of liver without ascites; K42.9 Umbilical hernia without obstruction or gangrene; E11.9 Type 2 diabetes mellitus without complications; D63.8 Anemia in other chronic diseases classified elsewhere; D69.6 Thrombocytopenia, unspecified; E66.9 Obesity, unspecified; K76.0 Fatty (change of) liver, not elsewhere classified; I85.01 Esophageal varices with bleeding; Z79.899 Other long term (current) drug therapy; Z20.822 Contact with and (suspected) exposure to COVID-19
CPT/HCPCS: 36415; 36430; 71046; 71260; 80053; 80305-QW; 80307; 81001; 82140; 82150; 83690; 83735; 83880; 85014; 85018; 85025; 85379; 85384; 85610; 86140; 86850; 86900; 86901; 86920; 86922; 87086; 87088; 87186; 96365; 96366; 96368; 96375; 96376; 99285; 99285-25; A9270-GY; C9113; J0696; J1630; J1956; J2060; J2354-JA; J2405; J2765; J3411; J3430; J3475; J3490; J7040; J7120; J7620-GY; P9016; P9017; Q9967; U0002

== ENCOUNTER 2022-01-14 08:43 | Emergency (ER) | payer MEDICAID ==
[2022-01-14] MEDS ORDERED: Oxymetazoline 0.05% Nasal Spray 30 ML Bottle ONE (08:57)
[2022-01-14] MEDS ORDERED: Lidocaine 1% with EPINEPHrine 1:100,000 20 ML MDV ONE (08:57)
[2022-01-14] MEDS ORDERED: Oxymetazoline 0.05% Nasal Spray 30 ML Bottle NAS ONE (09:09)
== END 2022-01-14 09:36 | disposition home or self-care (01) ==
LOC: DL.ED 08:43
DX: R04.0 Epistaxis (principal); I10 Essential (primary) hypertension; E11.9 Type 2 diabetes mellitus without complications
CPT/HCPCS: 30901; 99283; A9270-GY

== ENCOUNTER 2022-02-02 17:11 | Emergency (ER) | payer MEDICAID ==
[2022-02-02 18:32] LABS: CORONAVIRUS COVID-19 NAA NEGATIVE (NEGATIVE)
[2022-02-02] MEDS ORDERED: Ketorolac 30 MG/ML SDV IM ONE (19:22)
[2022-02-02] MEDS ORDERED: Ondansetron 4 MG Tab.DIS PO ONE (19:23)
[2022-02-02] MEDS ORDERED: Sodium Chloride 0.9% 10 ML Syringe FLUSH PRN (19:32)
[2022-02-02 20:05] LABS: ANION GAP 12.1 mEq/L (7-13)
== END 2022-02-02 21:30 | disposition home or self-care (01) ==
LOC: DL.ED 17:11
DX: R51.9 Headache, unspecified (principal); B34.9 Viral infection, unspecified; I10 Essential (primary) hypertension; E11.9 Type 2 diabetes mellitus without complications; Z79.899 Other long term (current) drug therapy; Z20.822 Contact with and (suspected) exposure to COVID-19
CPT/HCPCS: 0240U; 36415; 80053; 82607; 83605; 83735; 85025; 86140; 96372; 99284; A9270; J1885; J3490

== ENCOUNTER 2022-02-08 17:22 | Emergency (ER) | payer MEDICAID ==
[2022-02-08 18:42] LABS: ANION GAP 14.2 mEq/L (7-13)
== END 2022-02-08 19:08 | disposition home or self-care (01) ==
LOC: DL.ED 17:22
DX: K74.60 Unspecified cirrhosis of liver (principal); I10 Essential (primary) hypertension; E11.9 Type 2 diabetes mellitus without complications; Z79.899 Other long term (current) drug therapy
CPT/HCPCS: 36415; 80053; 82140; 82150; 83605; 83690; 83735; 85025; 99284

== ENCOUNTER 2022-03-20 11:37 | Emergency (ER) | payer MEDICAID ==
[2022-03-20] MEDS ORDERED: Octreotide 100 MCG/ML SDV SUBCUT ONE (11:43)
[2022-03-20] MEDS ORDERED: Pantoprazole 40 MG Vial IVPUSH ONE (11:43)
[2022-03-20] MEDS ORDERED: Pantoprazole 40 MG in Sodium Chloride 0.9% 100 ML IV SCH (11:44)
[2022-03-20] MEDS ORDERED: Ondansetron 4 MG/2 ML SDV IVPUSH ONE (11:46)
[2022-03-20] MEDS ORDERED: Sodium Chloride 0.9% 1,000 ML IV ONE (12:00)
[2022-03-20 12:26] LABS: PTT,PARTIAL THROMBOPLSTIN TIME 44.3 SEC (22.0-34.0)
[2022-03-20] MEDS: Octreotide 100 MCG in Sodium Chloride 0.9% 99 ML IV SCH ×2 (12:37→13:51)
[2022-03-20 12:38] LABS: ANION GAP 14.9 mEq/L (7-13); CHLORIDE,CL 101 mmol/L (98-107); SODIUM,NA 134 mmol/L (136-145)
[2022-03-20 12:47] LABS: ESTIMATED GFR 51 mL/min (>=60)
== END 2022-03-20 14:08 ==
LOC: DL.ED 11:37
DX: K92.2 Gastrointestinal hemorrhage, unspecified (principal); E80.6 Other disorders of bilirubin metabolism; I10 Essential (primary) hypertension; E11.9 Type 2 diabetes mellitus without complications; Z79.899 Other long term (current) drug therapy
CPT/HCPCS: 36415; 80053; 80307; 82150; 82272; 83605; 83690; 83735; 83880; 84145; 84484; 85025; 85610; 85730; 86140; 86850; 86900; 86901; 93005; 96365; 96368; 96375; 96376; 99285; C9113; J2354; J2405; J3490; J7030; 93010

== ENCOUNTER 2022-05-05 16:13 | Inpatient (IN) | payer MEDICAID ==
[2022-05-05 17:05] LABS: CORONAVIRUS COVID-19 NAA NEGATIVE (NEGATIVE); RESPIRATORY SYNCYTIAL VIR NAA NEGATIVE (NEGATIVE)
[2022-05-05] MEDS: Sodium Chloride 0.9% 10 ML Syringe FLUSH PRN (17:17)
[2022-05-05] MEDS ORDERED: Acetaminophen 500 MG Tab PO ONE (17:22)
[2022-05-05 17:23] LABS: ANION GAP 15.6 mEq/L (7-13); CHLORIDE,CL 106 mmol/L (98-107); ESTIMATED GFR 63 mL/min (>=60); SODIUM,NA 137 mmol/L (136-145)
[2022-05-05 17:51] LABS: AMPHETAMINES,URINE NEGATIVE (NEGATIVE); BARBITURATES,URINE NEGATIVE (NEGATIVE); BENZODIAZEPINE,URINE NEGATIVE (NEGATIVE); MDMA (ECSTASY), URINE NEGATIVE (NEGATIVE); METHADONE,URINE NEGATIVE (NEGATIVE); METHAMPHETAMINES,URINE NEGATIVE (NEGATIVE); OPIATES,URINE NEGATIVE (NEGATIVE); OXYCODONE,URINE NEGATIVE (NEGATIVE); PHENCYCLIDINE,URINE NEGATIVE (NEGATIVE); TCA,URINE NEGATIVE (NEGATIVE)
[2022-05-05] MEDS ORDERED: Metoprolol Tartrate 5 MG/5 ML SDV IVPUSH PRN ×2 (18:33→22:44)
[2022-05-05] MEDS ORDERED: Polyethylene Glycol 3350 Powder 17 GM Packet PO PRN (18:33)
[2022-05-05] MEDS ORDERED: Magnesium Hydroxide 400 MG/5 ML Susp 30 ML Cup PO PRN (18:33)
[2022-05-05] MEDS ORDERED: Ondansetron 4 MG/2 ML SDV IVPUSH PRN (18:33)
[2022-05-05] MEDS ORDERED: HYDROmorphone 0.5 MG/0.5 ML Syringe IVPUSH PRN (18:33)
[2022-05-05] MEDS ORDERED: Sodium Chloride 0.9% 10 ML Syringe FLUSH PRN (18:33)
[2022-05-05] MEDS ORDERED: Zolpidem 5 MG Tab PO PRN (18:33)
[2022-05-05] MEDS ORDERED: Acetaminophen/HYDROcodone 325-10 MG Tab PO PRN (18:33)
[2022-05-05] MEDS ORDERED: SODIUM CHLORIDE 0.9% IV SCH (18:45)
[2022-05-05] MEDS ORDERED: VANCOMYCIN IV SCH (18:45)
[2022-05-05] MEDS ORDERED: oxyCODONE 5 MG Tab PO PRN (18:45)
[2022-05-05] MEDS ORDERED: Vancomycin 2 GM in Sodium Chloride 0.9% 500 ML IV ONE (19:00)
[2022-05-05] MEDS: Piperacillin/Tazobactam 3.375 GM in Sodium Chloride 0.9% 100 ML IV SCH ×2 (20:11→23:30)
[2022-05-05] MEDS: Carvedilol 25 MG Tab PO SCH ×2 (20:54→21:01)
[2022-05-05] MEDS: Sodium Chloride 0.9% 10 ML Syringe FLUSH SCH (20:55)
[2022-05-05] MEDS: Sodium Bicarbonate 650 MG Tab PO SCH (20:58)
[2022-05-05] MEDS ORDERED: hydrALAZINE 20 MG/ML SDV IVPUSH PRN (22:44)
[2022-05-05] MEDS ORDERED: guaiFENesin/Dextromethorphan 100-10 MG/5 ML Soln 5 ML Cup PO PRN (22:45)
[2022-05-05] MEDS ORDERED: Magnesium Sulfate/Water 2 GM in Premix Bag 1 BAG IV ONE (22:49)
[2022-05-06] MEDS: Piperacillin/Tazobactam 3.375 GM in Sodium Chloride 0.9% 100 ML IV SCH ×5 (00:09→23:11)
[2022-05-06] MEDS ORDERED: Magnesium Sulfate/Water 2 GM in Premix Bag 1 BAG IV ONE (04:00)
[2022-05-06] MEDS: Heparin Sodium 5,000 Units/ML Vial SUBCUT SCH ×3 (06:18→23:11)
[2022-05-06 07:01] LABS: ANION GAP 15.1 mEq/L (7-13)
[2022-05-06] MEDS: Acetaminophen 325 MG Tab PO PRN (08:26)
[2022-05-06] MEDS: Cholecalciferol (Vitamin D3) 25 MCG Tab PO SCH (08:27)
[2022-05-06] MEDS: predniSONE 5 MG Tab PO SCH (08:27)
[2022-05-06] MEDS: Aspirin 81 MG Tab.EC PO SCH (08:27)
[2022-05-06] MEDS: Sodium Bicarbonate 650 MG Tab PO SCH ×2 (08:27→20:17)
[2022-05-06] MEDS: Pantoprazole 40 MG Tab.CR PO SCH (08:27)
[2022-05-06] MEDS: Sulfamethoxazole/Trimethoprim 800-160 MG Tab PO SCH (08:27)
[2022-05-06] MEDS: Carvedilol 25 MG Tab PO SCH ×2 (08:29→17:54)
[2022-05-06] MEDS: Polyethylene Glycol 3350 Powder 17 GM Packet PO SCH (08:29)
[2022-05-06] MEDS: Sodium Chloride 0.9% 10 ML Syringe FLUSH SCH ×2 (08:30→20:16)
[2022-05-06] MEDS: TACROLIMUS 1 MG PO SCH ×2 (09:00→20:17)
[2022-05-06] MEDS: MYCOPHENOLIC ACID 180 MG PO SCH ×2 (09:00→20:16)
[2022-05-06] MEDS: VALGANCICLOVIR 450 MG PO SCH (09:00)
[2022-05-06] MEDS: Sodium Chloride 0.9% 1,000 ML IV SCH ×2 (11:47→23:11)
[2022-05-07] MEDS: Heparin Sodium 5,000 Units/ML Vial SUBCUT SCH ×3 (05:45→21:43)
[2022-05-07] MEDS: Piperacillin/Tazobactam 3.375 GM in Sodium Chloride 0.9% 100 ML IV SCH ×4 (05:46→23:21)
[2022-05-07] MEDS: Acetaminophen 325 MG Tab PO PRN (05:46)
[2022-05-07] MEDS: Albuterol/Ipratropium 3.0-0.5 MG/3 ML Neb Soln NEB PRN ×2 (06:44→20:25)
[2022-05-07 07:12] LABS: ANION GAP 14.9 mEq/L (7-13)
[2022-05-07] MEDS: Sodium Chloride 0.9% 1,000 ML IV SCH ×2 (08:22→23:20)
[2022-05-07] MEDS: VALGANCICLOVIR 450 MG PO SCH (08:25)
[2022-05-07] MEDS: MYCOPHENOLIC ACID 180 MG PO SCH ×2 (08:25→20:11)
[2022-05-07] MEDS: TACROLIMUS 1 MG PO SCH ×2 (08:26→20:10)
[2022-05-07] MEDS: Carvedilol 25 MG Tab PO SCH ×2 (08:27→17:52)
[2022-05-07] MEDS: Sulfamethoxazole/Trimethoprim 800-160 MG Tab PO SCH (08:37)
[2022-05-07] MEDS: Cholecalciferol (Vitamin D3) 25 MCG Tab PO SCH (08:37)
[2022-05-07] MEDS: Aspirin 81 MG Tab.EC PO SCH (08:38)
[2022-05-07] MEDS: Sodium Bicarbonate 650 MG Tab PO SCH ×2 (08:38→20:10)
[2022-05-07] MEDS: predniSONE 5 MG Tab PO SCH (08:38)
[2022-05-07] MEDS: Pantoprazole 40 MG Tab.CR PO SCH (08:39)
[2022-05-07] MEDS: Polyethylene Glycol 3350 Powder 17 GM Packet PO SCH (08:39)
[2022-05-07] MEDS: Sodium Chloride 0.9% 10 ML Syringe FLUSH SCH ×2 (08:40→20:15)
[2022-05-07] MEDS ORDERED: Magnesium Sulfate/Water 2 GM in Premix Bag 1 BAG IV ONE (10:00)
[2022-05-07] MEDS ORDERED: Hydrochlorothiazide 25 MG Tab PO ONE (12:00)
[2022-05-07] MEDS: Saccharomyces Boulardii (Probiotic) 250 MG Cap PO SCH (20:10)
[2022-05-07] MEDS: hydrOXYzine HCl 25 MG Tab PO PRN (20:51)
[2022-05-07] MEDS ORDERED: Hydrochlorothiazide 25 MG Tab PO SCH (21:00)
[2022-05-08] MEDS: Acetaminophen 325 MG Tab PO PRN (03:31)
[2022-05-08] MEDS: Albuterol/Ipratropium 3.0-0.5 MG/3 ML Neb Soln NEB PRN (03:34)
[2022-05-08] MEDS: hydrALAZINE 20 MG/ML SDV IVPUSH PRN ×2 (04:07→20:55)
[2022-05-08] MEDS: Piperacillin/Tazobactam 3.375 GM in Sodium Chloride 0.9% 100 ML IV SCH ×3 (05:26→18:10)
[2022-05-08] MEDS: Heparin Sodium 5,000 Units/ML Vial SUBCUT SCH ×3 (05:31→21:04)
[2022-05-08 06:15] LABS: ANION GAP 15.1 mEq/L (7-13)
[2022-05-08] MEDS: Carvedilol 25 MG Tab PO SCH ×2 (08:21→18:10)
[2022-05-08] MEDS: Saccharomyces Boulardii (Probiotic) 250 MG Cap PO SCH ×2 (08:22→20:46)
[2022-05-08] MEDS: Sodium Bicarbonate 650 MG Tab PO SCH ×2 (08:22→20:47)
[2022-05-08] MEDS: Aspirin 81 MG Tab.EC PO SCH (08:22)
[2022-05-08] MEDS: predniSONE 5 MG Tab PO SCH (08:23)
[2022-05-08] MEDS: VALGANCICLOVIR 450 MG PO SCH (08:23)
[2022-05-08] MEDS: Cholecalciferol (Vitamin D3) 25 MCG Tab PO SCH (08:23)
[2022-05-08] MEDS: Pantoprazole 40 MG Tab.CR PO SCH (08:23)
[2022-05-08] MEDS: MYCOPHENOLIC ACID 180 MG PO SCH ×2 (08:24→20:50)
[2022-05-08] MEDS: TACROLIMUS 1 MG PO SCH ×2 (08:24→20:53)
[2022-05-08] MEDS: Polyethylene Glycol 3350 Powder 17 GM Packet PO SCH (09:03)
[2022-05-08] MEDS: Hydrochlorothiazide 25 MG Tab PO SCH ×2 (09:05→14:46)
[2022-05-08] MEDS: Sodium Chloride 0.9% 10 ML Syringe FLUSH SCH ×2 (09:06→20:49)
[2022-05-08] MEDS: Sodium Chloride 0.9% 10 ML Syringe FLUSH PRN (18:09)
[2022-05-08] MEDS: hydrOXYzine HCl 25 MG Tab PO PRN (20:48)
[2022-05-09] MEDS: Piperacillin/Tazobactam 3.375 GM in Sodium Chloride 0.9% 100 ML IV SCH ×5 (00:23→23:09)
[2022-05-09] MEDS: hydrALAZINE 20 MG/ML SDV IVPUSH PRN ×3 (01:20→18:20)
[2022-05-09] MEDS: Acetaminophen 325 MG Tab PO PRN ×2 (02:43→08:24)
[2022-05-09] MEDS: Albuterol/Ipratropium 3.0-0.5 MG/3 ML Neb Soln NEB PRN ×2 (03:40→23:16)
[2022-05-09 06:07] LABS: ANION GAP 14.9 mEq/L (7-13)
[2022-05-09] MEDS: Heparin Sodium 5,000 Units/ML Vial SUBCUT SCH (06:27)
[2022-05-09] MEDS ORDERED: Magnesium Sulfate/Water 2 GM in Premix Bag 1 BAG IV ONE (08:00)
[2022-05-09] MEDS: MYCOPHENOLIC ACID 180 MG PO SCH ×2 (08:19→21:00)
[2022-05-09] MEDS: VALGANCICLOVIR 450 MG PO SCH (08:20)
[2022-05-09] MEDS: TACROLIMUS 1 MG PO SCH ×2 (08:21→21:01)
[2022-05-09] MEDS: Cholecalciferol (Vitamin D3) 25 MCG Tab PO SCH (08:23)
[2022-05-09] MEDS: Aspirin 81 MG Tab.EC PO SCH (08:23)
[2022-05-09] MEDS: Saccharomyces Boulardii (Probiotic) 250 MG Cap PO SCH ×2 (08:26→21:00)
[2022-05-09] MEDS: Sodium Bicarbonate 650 MG Tab PO SCH ×2 (08:26→21:00)
[2022-05-09] MEDS: Hydrochlorothiazide 25 MG Tab PO SCH ×2 (08:26→13:45)
[2022-05-09] MEDS: Carvedilol 25 MG Tab PO SCH ×2 (08:27→17:09)
[2022-05-09] MEDS: predniSONE 5 MG Tab PO SCH (08:28)
[2022-05-09] MEDS: Pantoprazole 40 MG Tab.CR PO SCH (08:28)
[2022-05-09] MEDS: Sodium Chloride 0.9% 10 ML Syringe FLUSH SCH ×2 (08:31→21:11)
[2022-05-09] MEDS: hydrALAZINE 25 MG Tab PO SCH ×2 (08:38→20:59)
[2022-05-09] MEDS: Polyethylene Glycol 3350 Powder 17 GM Packet PO SCH (08:40)
[2022-05-09] MEDS ORDERED: Furosemide 20 MG/2 ML VIAL IVPUSH ONE (12:00)
[2022-05-09] MEDS: Sodium Chloride 0.9% 10 ML Syringe FLUSH PRN (13:01)
[2022-05-09] MEDS ORDERED: Fluconazole/Normal Saline 100 MG in Premix Bag 1 BAG IV ONE (16:45)
[2022-05-09] MEDS ORDERED: Fluconazole/Normal Saline 200 MG in Premix Bag 1 BAG IV ONE (16:59)
[2022-05-09] MEDS ORDERED: Fluconazole/Normal Saline 100 MG in Premix Bag 1 BAG IV SCH (17:30)
[2022-05-09 18:23] LABS: ANION GAP 14.2 mEq/L (7-13)
[2022-05-09] MEDS: hydrOXYzine HCl 25 MG Tab PO PRN (23:16)
[2022-05-10] MEDS: Piperacillin/Tazobactam 3.375 GM in Sodium Chloride 0.9% 100 ML IV SCH ×3 (05:41→17:41)
[2022-05-10] MEDS: Albuterol/Ipratropium 3.0-0.5 MG/3 ML Neb Soln NEB PRN (05:46)
[2022-05-10] MEDS: hydrOXYzine HCl 25 MG Tab PO PRN (05:46)
[2022-05-10] MEDS: Saccharomyces Boulardii (Probiotic) 250 MG Cap PO SCH ×2 (08:55→20:39)
[2022-05-10] MEDS: Sodium Bicarbonate 650 MG Tab PO SCH ×2 (08:55→20:39)
[2022-05-10] MEDS: Carvedilol 25 MG Tab PO SCH ×2 (08:55→17:40)
[2022-05-10] MEDS ORDERED: Acetaminophen/Butalbital/Caffeine 325-50-40 MG Tab PO PRN (08:56)
[2022-05-10] MEDS: hydrALAZINE 25 MG Tab PO SCH ×2 (08:57→20:39)
[2022-05-10] MEDS: Hydrochlorothiazide 25 MG Tab PO SCH ×2 (08:57→14:06)
[2022-05-10] MEDS: Pantoprazole 40 MG Tab.CR PO SCH (08:57)
[2022-05-10] MEDS: predniSONE 5 MG Tab PO SCH (08:58)
[2022-05-10] MEDS: Polyethylene Glycol 3350 Powder 17 GM Packet PO SCH (08:58)
[2022-05-10] MEDS: Cholecalciferol (Vitamin D3) 25 MCG Tab PO SCH (08:58)
[2022-05-10] MEDS: MYCOPHENOLIC ACID 180 MG PO SCH ×2 (08:59→20:42)
[2022-05-10] MEDS: Sodium Chloride 0.9% 10 ML Syringe FLUSH SCH (09:00)
[2022-05-10] MEDS ORDERED: Fluconazole 100 MG Tab PO SCH (09:00)
[2022-05-10] MEDS: TACROLIMUS 1 MG PO SCH ×2 (09:01→20:43)
[2022-05-10] MEDS: VALGANCICLOVIR 450 MG PO SCH (09:01)
[2022-05-10] MEDS ORDERED: Magnesium Sulfate/Water 2 GM in Premix Bag 1 BAG IV ONE (10:15)
[2022-05-10] MEDS: Sodium Chloride 0.9% 10 ML Syringe FLUSH PRN (10:30)
[2022-05-10] MEDS ORDERED: hydrALAZINE 25 MG Tab ONE (20:33)
== END 2022-05-10 21:25 | DRG 193 ==
LOC: DL.ED 16:13 → UNDOADMIN 18:01 → DL.MS 18:01
PROVIDERS: ADMIT Internal Medicine; ATTEND Internal Medicine
DX: J18.9 Pneumonia, unspecified organism (principal); D61.811 Other drug-induced pancytopenia; D84.9 Immunodeficiency, unspecified; J90 Pleural effusion, not elsewhere classified; N17.9 Acute kidney failure, unspecified; Z94.4 Liver transplant status; I10 Essential (primary) hypertension; K74.60 Unspecified cirrhosis of liver; T50.995A Adverse effect of other drugs, medicaments and biological substances, initial encounter; Z20.822 Contact with and (suspected) exposure to COVID-19; E83.42 Hypomagnesemia; E66.9 Obesity, unspecified; E10.9 Type 1 diabetes mellitus without complications; I27.20 Pulmonary hypertension, unspecified; D63.8 Anemia in other chronic diseases classified elsewhere; D69.6 Thrombocytopenia, unspecified; E87.5 Hyperkalemia; Z79.82 Long term (current) use of aspirin; Z79.899 Other long term (current) drug therapy; Z68.33 Body mass index [BMI] 33.0-33.9, adult
CPT/HCPCS: 0241U; 36415; 71045; 71250; 80048; 80053; 80202; 80305-QW; 80307; 81003; 82150; 83605; 83690; 83735; 83880; 84100; 84145; 84443; 84484; 85025; 85379; 85610; 85651; 85730; 86140; 86645; 87040; 87081; 87430; 93005; 93010; 94640; 99285; A9270-GY; J0360; J1450; J1644; J1940; J2543; J2545; J3370; J3475; J3490; J7030; J7040; J7050; J7512; J7620-GY

== ENCOUNTER 2023-01-07 09:02 | Emergency (ER) | payer OTHER, MEDICAID ==
[2023-01-07] MEDS ORDERED: Sodium Chloride 0.9% 10 ML Syringe FLUSH PRN (09:13)
[2023-01-07 09:30] LABS: BASOPHILS PERCENT AUTO 0.5 % (0.0-1.0); EOSINOPHILS PERCENT AUTO 2.7 % (1.0-3.0); HEMATOCRIT 32.2 % (40.0-54.0); HEMOGLOBIN 11.2 g/dL (14.0-18.0); LYMPHOCYTES PERCENT AUTO 19.5 % (20.5-50.1); MEAN CORPUSCULAR HEMOGLOBIN 28.5 pg (27.0-34.0); MEAN CORPUSCULAR HGB CONC 34.8 g/dL (33.0-35.0); MEAN CORPUSCULAR VOLUME 81.9 fL (80-100); MONOCYTES PERCENT AUTO 10.3 % (2-8); PLATELET COUNT,PLT 134 10^3/uL (150-450); RED BLOOD CELL COUNT 3.93 10^6/uL (4.6-6.2); WHITE BLOOD CELL COUNT,WBC 4.1 10^3/uL (5.0-10.0)
[2023-01-07 09:57] LABS: A/G RATIO 1.3; ALANINE AMINOTRANSFERASE,ALT 23 U/L (16-63); ALKALINE PHOSPHATASE 220 U/L (46-116); AMYLASE 14 U/L (25-115); ANION GAP 12.9 mEq/L (7-13); ASPARTATE AMNIOTRANSFERASE,AST 16 U/L (15-37); BLOOD UREA NITROGEN,BUN 20 mg/dL (7-18); BUN/CREATININE RATIO 12.7 (No establ ref range); CALCIUM 8.9 mg/dL (8.5-10.1); CARBON DIOXIDE,CO2 26 mmol/L (21-32); CHLORIDE,CL 100 mmol/L (98-107); CREATININE 1.58 mg/dL (0.70-1.30); EST CRCL DRUG DOSING (CG) 64.94 mL/min; GLUCOSE RANDOM 349 mg/dL (70-99); LIPASE 26 U/L (16-77); POTASSIUM,K 3.9 mmol/L (3.5-5.1); SODIUM,NA 135 mmol/L (136-145)
[2023-01-07 10:00] LABS: HEMOGLOBIN A1C 8.9 % (<5.7)
[2023-01-07 10:02] LABS: KETONES,BLOOD NEGATIVE
[2023-01-07 10:03] LABS: ESTIMATED GFR 59 mL/min (>=60)
[2023-01-07 10:08] LABS: APPEARANCE,URINE CLEAR (CLEAR); BILIRUBIN,URINE NEGATIVE (NEGATIVE); COLOR,URINE DARK YELLOW (YELLOW); GLUCOSE,URINE 500 (NEGATIVE); KETONES,URINE NEGATIVE (NEGATIVE); LEUKOCYTE ESTERASE,URINE NEGATIVE (NEGATIVE); NITRITE,URINE NEGATIVE (NEGATIVE); OCCULT BLOOD,URINE NEGATIVE (NEGATIVE); PROTEIN,URINE 30 (NEGATIVE); UROBILINOGEN,URINE 0.2 mg/dL (0.2-1.0)
[2023-01-07 10:30] LABS: WBC,URINE 0-5 /HPF (0-5/HPF)
[2023-01-07 10:31] LABS: AMORPHOUS SEDIMENT,URINE FEW /HPF (NOT SEEN); BACTERIA,URINE NOT SEEN /HPF (0-FEW/HPF); EPITHELIAL CELLS,URINE RARE /HPF (NOT SEEN); HYALINE CASTS,URINE OCCASIONAL; MUCUS,URINE NOT SEEN /LPF (NOT SEEN); RBC,URINE NOT SEEN /HPF (0-5)
== END 2023-01-07 10:58 | disposition home or self-care (01) ==
LOC: DL.ED 09:02
DX: R73.9 Hyperglycemia, unspecified (principal); R73.09 Other abnormal glucose; Z94.4 Liver transplant status; I10 Essential (primary) hypertension; Z86.16 Personal history of COVID-19; Z79.4 Long term (current) use of insulin; Z79.82 Long term (current) use of aspirin; Z79.899 Other long term (current) drug therapy
CPT/HCPCS: 36415; 80053; 81001; 82009; 82150; 82947; 83036; 83690; 85025; 99284; J3490